=== PATIENT | male | born 1940 | race Caucasian/White ===

== ENCOUNTER 2016-05-15 15:27 | Emergency (ER) | payer MEDICARE, BC ==
--- NOTE | 2016-05-15 15:49 | Emergency Department Record ---
History of Present Illness - General Chief complaint: Nosebleed/epistaxis Stated complaint: NOSE BLEED Time Seen by Provider: 05/15/16 15:48 Source: Patient Mode of Arrival: Ambulatory Limitations: No limitations - History of Present Illness Initial comments: The patient states he is on Coumadin and ASA and had a nosebleed start out of the L nares 30 minutes prior to presenting to the ER. He denies any recent illnesses, CP, SOB or NATALIE. He is on Coumadin for Afib. MD complaint: Epistaxis Onset/Timin -: Minutes(s) Location: Nose Consistency: Constant Improves with: None Worsens with: None Associated Symptoms: Other - Related Data Home Medications Medication Instructions Recorded Confirmed Last Taken Aspirin Chewable 81 mg PO DAILY 04/19/14 05/15/16 11/28/15 06:00 Fenofibrate Nanocrystallized 145 mg PO DAILY 04/19/14 05/15/16 04/19/14 [Tricor] Furosemide [Lasix] 40 mg PO DAILY 04/19/14 05/15/16 11/28/15 06:00 Guaifenesin [Mucinex] 1,200 mg PO BID 04/19/14 05/15/16 04/19/14 Ipratropium/Albuterol [Duoneb] 3 ml IH ASDIR PRN 04/19/14 05/15/16 04/19/14 Oxymetazoline HCl [Afrin] 15 ml NS ASDIR PRN 04/19/14 05/15/16 04/19/14 Simvastatin [Zocor] 40 mg PO QHS 04/19/14 05/15/16 04/19/14 Sotalol HCl [Betapace] 120 mg PO BID 04/19/14 05/15/16 04/19/14 Tamsulosin HCl [Flomax] 0.4 mg PO QHS 04/19/14 05/15/16 04/19/14 Warfarin Sodium [Coumadin] 5 mg PO QHS 04/19/14 05/15/16 04/19/14 Famotidine [Pepcid] 20 mg PO BID tab 11/19/15 05/15/16 Unknown Finasteride 5 mg PO QHS tab 11/19/15 05/15/16 Unknown Lisinopril 5 mg PO QHS tab 11/19/15 05/15/16 Unknown Metformin HCl 500 mg PO DAILY tab 11/19/15 05/15/16 Unknown Previous Rx's Medication Instructions Recorded Nitroglycerin [Nitrostat] 0.4 mg SL ASDIR #30 tab.subl 11/29/15 Allergies Allergy/AdvReac Type Severity Reaction Status Date / Time Iodinated Contrast Media - Allergy Severe SHORTNESS Unverified 11/19/15 12:55 Oral and OF BREATH [Iodinated Contrast Media - IV Dye] Penicillins Allergy Severe HIVES Unverified 11/19/15 12:55 cephalexin monohydrate Allergy Intermediate ITCHING Unverified 11/19/15 12:55 [From Keflex] sulfamethoxazole Allergy Unknown PT UNSURE Unverified 11/19/15 12:55 [From Bactrim] OF REACTION trimethoprim [From Bactrim] Allergy Unknown PT UNSURE Unverified 11/19/15 12:55 OF REACTION Travel Screening - Travel/Exposure Within Last 30 Days Have you traveled within the last 30 days?: No Review of Systems Constitutional: Denies: Chills, Fever Eyes: Denies: Eye discharge ENT: Reports: Epistaxis. Denies: Congestion Respiratory: Denies: Cough, Dyspnea Past Medical History - SOCIAL HISTORY Smoking Status: Former smoker Alcohol Use: None Drug Use: None - RESPIRATORY Hx Respiratory Disorders: Yes Hx COPD: Yes Comment:: emphysema - CARDIOVASCULAR Hx Cardio Disorders: Yes Hx Cardiac Cath: Yes Hx Chest Pain: Yes Hx Hypertension: Yes Hx Irregular Heartbeat: Yes (Afib) Hx Pacemaker/Defib: Yes (just pacer) - NEURO Hx Neuro Disorders: No - GI Hx GI Disorders: No - Hx Genitourinary Disorders: Yes Hx Prostate Problems: Yes - ENDOCRINE Hx Endocrine Disorders: No - MUSCULOSKELETAL Hx Musculoskeletal Disorders: Yes - PSYCH Hx Psych Problems: No - HEMATOLOGY/ONCOLOGY Hx Hematology/Oncology Disorders: No Family Medical History Any Significant Family History?: Yes Hx Diabetes: Mother Hx Heart Disease: Mother, Brother/Sister Physical Exam - General General Appearance: Alert, Oriented x3, Cooperative, No acute distress - Head Head exam: Atraumatic, Normocephalic, Normal inspection - Eye Eye exam: Normal appearance, PERRL - ENT ENT exam: negative: Normal exam Nasal Exam: Active bleeding (There is mild bleeding from the septum on the L where there is a hole in the cartilage.). negative: Normal inspection - Neck Neck exam: Normal inspection, Full ROM. negative: Tenderness - Respiratory Respiratory exam: Normal lung sounds bilaterally. negative: Respiratory distress - Cardiovascular Cardiovascular Exam: Irregular rhythm. negative: Diastolic murmur, Systolic murmur Course Vital Signs 05/15/16 15:41 Temperature 97.9 F Pulse Rate [ 125 H Pulse Ox Probe] Respiratory 20 Rate Blood Pressure 116/62 [Left Arm] Pulse Ox 96 - Reevaluation(s) Reevaluation #1: The patient is doing very well at this time. His bleeding has stopped with the Silver Nitrate cautery. 05/15/16 16:33 Reevaluation #2: The patient is doing well at this time and has had no further bleeding. He does feel like he is back in Afib which has been chronic for him. I did do an EKG and it does appear very similar to one done in Dec of last year. He also has had dyspnea on exertion for at least 6 months and it is no worse at this time. I did discuss the case with Mr. Green's [employer] Dr. Charity Del Rio and he agrees with discharging the patient to home and possibly having him move up his appointment with him later this month. 05/15/16 17:17 05/15/16 17:21 Reevaluation #3: The patient did haav a Nuclear Stress Test on 02/04/16 and it was WNL with no ischemia. 05/15/16 17:22 Medical Decision Making - Data Complexity MDM Data: Labs Ordered and/or Reviewed, EKG Ordered and/or Reviewed, Review and Summary of Old Record Discussed - Lab Data Result diagrams: 05/15/16 16:00 05/15/16 16:00 - EKG Data -: EKG Interpreted by Me EKG: No Acute Changes, Unchanged From Previous Disposition Disposition: Discharge Clinical Impression: Epistaxis Disposition: Home, Self-Care Condition: (1) Good Instructions: Epistaxis (ED) Additional Instructions: Please continue your regular medicines. Please use Salt water spray in your nose for 3 days twice a day. Please have your appointment with Dr. Del Rio moved up later this month. Please return to the ER for any problems or concerns. Forms: Patient Portal Access Time of Disposition: 17:24
[2016-05-15] MEDS ORDERED: TOPICAL LIDOCAINE W/ EPI 5 ML TOP ONE (15:52)
[2016-05-15 16:12] LABS: BASO % 0.8 % (0-6); EOS % 4.4 % (0-6); GRAN % 55.8 % (47-80); HEMATOCRIT 43.5 % (42.0-52.0); HEMOGLOBIN 14.3 gm/dl (14.0-18.0); MEAN CELL VOLUME 93.8 fl (81-97); MEAN CORPUSCULAR HEMOGLOBIN 30.8 pg (27-33); MEAN CORPUSCULAR HGB CONC 32.9 g/dl (32-36); MEAN PLATELET VOLUME 12.7 fl (7.4-10.4); PLATELET COUNT 190 K/uL (130-400); RED BLOOD COUNT 4.64 M/uL (4.40-5.70); RED CELL DISTRIBUTION WIDTH 13.8 % (11.5-14.5); WHITE BLOOD COUNT W/O DIFF 6.6 K/uL (4.2-12.2)
[2016-05-15 16:25] LABS: ANION GAP 13.8 (7-16); BLOOD UREA NITROGEN 22 mg/dL (9-20); CARBON DIOXIDE 29.2 mmol/L (22-30); CREATININE 1.1 mg/dL (0.66-1.25); EST GLOMERULAR FILTRATION RATE > 60 ml/min; GLUCOSE,RANDOM 195 mg/dL (70-110)
[2016-05-15 16:26] LABS: INR 2.01; PARTIAL THROMBOPLASTIN TIME 33.1 SECONDS (24.5-39.1); PROTHROMBIN TIME (PATIENT) 22.7 SECONDS (9.5-12.1)
== END 2016-05-15 17:42 | disposition home or self-care (01) ==
LOC: ER 15:27
DX: R04.0 Epistaxis (principal); I48.91 Unspecified atrial fibrillation; Z79.01 Long term (current) use of anticoagulants; I10 Essential (primary) hypertension; Z87.891 Personal history of nicotine dependence
CPT/HCPCS: 30901; 80048; 85025; 85610; 85730; 93005; 93010; 99284

== ENCOUNTER 2016-09-01 11:56 | Day surgery (SDC) | payer MEDICARE, BC ==
[2016-09-01 12:51] LABS: BASO % 0.3 % (0-6); EOS % 2.9 % (0-6); HEMATOCRIT 42.2 % (42.0-52.0); LYMPH % 18.5 % (16-45); MEAN CELL VOLUME 94.4 fl (81-97); MEAN CORPUSCULAR HGB CONC 30.8 g/dl (32-36); MEAN PLATELET VOLUME 12.7 fl (7.4-10.4); MONO % 11.3 % (0-9); PLATELET COUNT 160 K/uL (130-400); RED BLOOD COUNT 4.47 M/uL (4.40-5.70); RED CELL DISTRIBUTION WIDTH 14.9 % (11.5-14.5); WHITE BLOOD COUNT W/O DIFF 5.8 K/uL (4.2-12.2)
[2016-09-01 13:03] LABS: ALB/GLOB RATIO 1.6 (1.1-1.8); ALBUMIN 4.2 gm/dL (3.5-5.0); ALKALINE PHOSPHATASE 64 U/L (38-126); ALT/SGPT 26 U/L (21-72); ANION GAP 4.2 (7-16); AST/SGOT 31 U/L (17-59); BILIRUBIN,TOTAL 0.81 mg/dL (0.2-1.3); BLOOD UREA NITROGEN 21 mg/dL (9-20); CARBON DIOXIDE 28.8 mmol/L (22-30); EST GLOMERULAR FILTRATION RATE > 60 ml/min; GLUCOSE,RANDOM 137 mg/dL (70-110); TOTAL PROTEIN 6.9 gm/dL (6.3-8.2)
[2016-09-01 13:40] LABS: INR 2.28; PROTHROMBIN TIME (PATIENT) 25.8 SECONDS (9.5-12.1)
[2016-09-01] MEDS ORDERED: PROPOFOL 10 MG/ML VIAL IV ONE (14:53)
[2016-09-01] MEDS ORDERED: LIDOCAINE 2% MDV (20MG/ML) 20ML VIAL IV ONE (14:53)
--- NOTE | 2016-09-03 16:43 | Operative Note ---
DATE OF SURGERY: 09/01/2016 Operating Physician: Marcellus Del Rio MD Indication: Persistent atrial fibrillation. PROCEDURE: The patient was brought into the cardioversion room in a fasting state. The defibrillation pads were applied in the anteroposterior position. Anesthesia was administered and a synchronized direct current of 100 joules biphasic energy was used for cardioversion. This was successful on the first attempt. IMPRESSION: Successful direct current supported cardioversion with 100 joules of biphasic energy. We also interrogated and adjusted the patient's pacemaker. I increased his base rate to 75 beats per minute and will keep it this way for 4-6 weeks to suppress any atrial fibrillation. He also has the AF suppression on in his permanent pacemaker as well. The patient was slightly subtherapeutic on his INR. He was also given 100 mg of Lovenox subcutaneously as well. Marcellus Del Rio MD Date Time MTDD
== END 2016-09-01 14:25 | disposition home or self-care (01) ==
LOC: SUR 11:56
PROVIDERS: ATTEND Internal Medicine
DX: I48.1 Persistent atrial fibrillation (principal); E11.9 Type 2 diabetes mellitus without complications; Z79.84 Long term (current) use of oral hypoglycemic drugs; I10 Essential (primary) hypertension; Z95.0 Presence of cardiac pacemaker
CPT/HCPCS: 80053; 85025; 85610; 85730; 93005

== ENCOUNTER 2016-09-12 19:54 | Emergency (ER) | payer MEDICARE, BC ==
--- NOTE | 2016-09-12 20:17 | Emergency Department Record ---
History of Present Illness - General Chief Complaint: Arrythmia/Palpitations Stated Complaint: AFIB Time Seen by Provider: 09/12/16 20:02 Source: Patient Mode of Arrival: Wheelchair Limitations: No limitations - History of Present Illness Initial Comments: 76 yo male presents to ED with a CC of increasing NATALIE and dizziness, reports that his atrial fibrillation "is back". Patient reports recent cardioversion with Dr. Del Rio 11 days ago, and recent change from Betapace to another medication for rate control (unsure of what medication). Patient denies fevers , chills, cough, or lower extremity edema symptoms. Patient denies chest pain symptoms, reports that he has been on Coumadin for several years as well. MD Complaint: Atrial fibrillation Onset/Timin -: Hour(s) Arrythmia History: Atrial fibrillation Associated Symptoms: Shortness of breath - Related Data Home Medications Medication Instructions Recorded Confirmed Last Taken Aspirin Chewable 81 mg PO DAILY 04/19/14 09/12/16 09/12/16 Fenofibrate Nanocrystallized 145 mg PO DAILY 04/19/14 09/12/16 09/12/16 [Tricor] Furosemide [Lasix] 40 mg PO DAILY 04/19/14 09/12/16 09/12/16 Guaifenesin [Mucinex] 1,200 mg PO BID 04/19/14 09/12/16 09/12/16 Ipratropium/Albuterol [Duoneb] 3 ml IH ASDIR PRN 04/19/14 09/12/16 04/19/14 Oxymetazoline HCl [Afrin] 15 ml NS ASDIR PRN 04/19/14 09/12/16 04/19/14 Simvastatin [Zocor] 40 mg PO QHS 04/19/14 09/12/16 09/12/16 Tamsulosin HCl [Flomax] 0.4 mg PO QHS 04/19/14 09/12/16 09/12/16 Warfarin Sodium [Coumadin] 5 mg PO QHS 04/19/14 09/12/16 09/12/16 Famotidine [Pepcid] 20 mg PO BID tab 11/19/15 09/12/16 09/12/16 Finasteride 5 mg PO QHS tab 11/19/15 09/12/16 09/12/16 Metformin HCl 500 mg PO DAILY tab 11/19/15 09/12/16 09/12/16 Hydrocodone/Acetaminophen [[place] 1 tab PO Q6H PRN 09/12/16 09/12/16 09/12/16 5mg/325mg] Isosorbide Mononitrate [Imdur] 30 mg PO DAILY 09/12/16 09/12/16 09/12/16 Losartan Potassium [Losartan 25 mg PO DAILY 09/12/16 09/12/16 09/12/16 Potassium] Previous Rx's Medication Instructions Recorded Nitroglycerin [Nitrostat] 0.4 mg SL ASDIR #30 tab.subl 11/29/15 Allergies Allergy/AdvReac Type Severity Reaction Status Date / Time Iodinated Contrast Media - Allergy Severe SHORTNESS Unverified 11/19/15 12:55 Oral and OF BREATH [Iodinated Contrast Media - IV Dye] isosorbide [From Imdur] Allergy Severe SHORTNESS Verified 08/31/16 07:37 OF BREATH Penicillins Allergy Severe HIVES Unverified 11/19/15 12:55 cephalexin monohydrate Allergy Intermediate ITCHING Unverified 11/19/15 12:55 [From Keflex] sulfamethoxazole Allergy Unknown PT UNSURE Unverified 11/19/15 12:55 [From Bactrim] OF REACTION trimethoprim [From Bactrim] Allergy Unknown PT UNSURE Unverified 11/19/15 12:55 OF REACTION Review of Systems Constitutional: Denies: Chills, Fever, Malaise, Night sweats Eyes: Denies: Eye discharge, Eye pain ENT: Denies: Congestion, Ear pain, Epistaxis Respiratory: Reports: Dyspnea. Denies: Cough Cardiovascular: Reports: Palpitations. Denies: Chest pain, Edema Endocrine: Reports: Fatigue. Denies: Heat or cold intolerance Gastrointestinal: Denies: Abdominal pain, Nausea, Vomiting Genitourinary: Denies: Incontinence, Retention Musculoskeletal: Reports: Back pain (chronic per patient). Denies: Arthralgia, Gout, Joint swelling Skin: Denies: Bruising, Change in color Neurological: Denies: Abnormal gait, Confusion, Headache Psychiatric: Denies: Anxiety Hematological/Lymphatic: Reports: Easy bleeding, Easy bruising. Denies: Anemia , Blood Clots Past Medical History - SOCIAL HISTORY Smoking Status: Former smoker - RESPIRATORY Hx Respiratory Disorders: Yes Hx Asthma: No Hx Bronchitis: Yes (Last episode 4 weeks ago, usually 1x/yerar) Hx COPD: Yes (hx of 30 year smoking 1 1/2 ppd) Hx Dyspnea: Yes (increasing over last 2-3 weeks) Comment:: emphysema - CARDIOVASCULAR Hx Cardio Disorders: Yes Hx Abnormal EKG: Yes Hx Cardiac Cath: Yes Hx Chest Pain: Yes (After meals, ? indigestion) Hx Edema: Yes (bilat legs onLasix) Hx Heart Attack: No Hx Hypertension: Yes Hx Irregular Heartbeat: Yes Hx Pacemaker/Defib: Yes (Pacemaker [place]) Hx Coronary Artery Disease: Yes Hx Coronary Artery Bypass Graft: Yes (QCABG 1999) Hx Percutaneous Transluminal Coronary Angioplasty (PTCA): Yes Comment:: Due to SOB and back pain - NEURO Hx Neuro Disorders: No - GI Hx GI Disorders: Yes Hx Reflux: Yes (Chest pain after meals, feels OK when gas is passed. On Pepcid) - Hx Genitourinary Disorders: Yes Hx Prostate Problems: Yes (enlarged, sometimes difficult to start stream) - ENDOCRINE Hx Endocrine Disorders: Yes Hx Diabetes: Yes (DX x 6-9 mos, on Metformin) - MUSCULOSKELETAL Hx Musculoskeletal Disorders: Yes Hx Arthritis: Yes (lower back) - PSYCH Hx Psych Problems: No - HEMATOLOGY/ONCOLOGY Hx Hematology/Oncology Disorders: Yes Hx Bruising: Yes (On coumadin) Family Medical History Hx Dementia: Mother Hx Diabetes: Mother Hx Heart Disease: Mother, Brother/Sister Physical Exam - General General Appearance: Alert, Oriented x3, Cooperative, Mild distress Limitations: No limitations - Head Head exam: Atraumatic, Normocephalic, Normal inspection Head exam detail: negative: Abrasion, Contusion, Weaver's sign, General tenderness, Hematoma, Laceration - Eye Eye exam: Normal appearance. negative: Conjunctival injection, Periorbital swelling, Periorbital tenderness, Scleral icterus - ENT Ear exam: negative: Auricular hematoma, Auricular trauma Nasal Exam: negative: Active bleeding, Discharge, Dried blood, Foreign body Mouth exam: negative: Drooling, Laceration, Muffled voice, Tongue elevation - Neck Neck exam: Normal inspection. negative: Meningismus, Tenderness - Respiratory Respiratory exam: Normal lung sounds bilaterally, Wheezes (mild bialterally). negative: Respiratory distress, Rhonchi, Stridor - Cardiovascular Cardiovascular Exam: Normal heart sounds, Irregular rhythm - GI/Abdominal GI/Abdominal exam: Soft. negative: Organomegaly, Rebound, Rigid, Tenderness - Rectal Rectal exam: Deferred - exam: Deferred - Extremities Extremities exam: Normal inspection. negative: Calf tenderness, Pedal edema, Tenderness - Back Back exam: Denies: CVA tenderness (R), CVA tenderness (L) - Neurological Neurological exam: Alert, Normal gait, Oriented X3 - Psychiatric Psychiatric exam: Normal affect, Normal mood - Skin Skin exam: Normal color. 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 Labs are otherwise grossly unremarkable for an acute process. Dr. Hall pagesiva for consultation. Reevaluation #4: 09/12/16 21:07 Case was discussed with Dr. Hall, will accept transfer for further evaluation of his atrial fibrillation. Medical Decision Making - Lab Data Result diagrams: 09/12/16 20:17 09/12/16 20:17 Disposition Disposition: Transfer Clinical Impression: Atrial fibrillation Qualifiers: Atrial fibrillation type: unspecified Qualified Code(s): I48.91 - Unspecified atrial fibrillation Disposition: Acute Care Hospital Transfer Transfer To: [facility] Reason For Transfer: Atrial Fibrillation Accepting Physician: Rafael Time Discussed w/Accepting Physician: 21:08 Condition: (2) Stable Forms: Patient Portal Access Time of Disposition: 21:08
[2016-09-12 20:31] LABS: BASO % 0.5 % (0-6); EOS % 2.4 % (0-6); GRAN % 68.6 % (47-80); HEMATOCRIT 40.3 % (42.0-52.0); HEMOGLOBIN 12.5 gm/dl (14.0-18.0); MEAN CELL VOLUME 93.9 fl (81-97); MEAN CORPUSCULAR HEMOGLOBIN 29.1 pg (27-33); MEAN PLATELET VOLUME 12.5 fl (7.4-10.4); MONO % 11.5 % (0-9); PLATELET COUNT 196 K/uL (130-400); RED BLOOD COUNT 4.29 M/uL (4.40-5.70); RED CELL DISTRIBUTION WIDTH 14.9 % (11.5-14.5); WHITE BLOOD COUNT W/O DIFF 6.3 K/uL (4.2-12.2)
[2016-09-12 20:43] LABS: ALB/GLOB RATIO 1.4 (1.1-1.8); ALBUMIN 4.4 gm/dL (3.5-5.0); ALKALINE PHOSPHATASE 63 U/L (38-126); ALT/SGPT 31 U/L (21-72); ANION GAP 4.5 (7-16); AST/SGOT 32 U/L (17-59); BILIRUBIN,TOTAL 0.76 mg/dL (0.2-1.3); BLOOD UREA NITROGEN 26 mg/dL (9-20); CARBON DIOXIDE 27.5 mmol/L (22-30); CREATININE 1.2 mg/dL (0.66-1.25); EST GLOMERULAR FILTRATION RATE > 60 ml/min; GLUCOSE,RANDOM 115 mg/dL (70-110); TOTAL PROTEIN 7.5 gm/dL (6.3-8.2)
[2016-09-12 20:45] LABS: INR 4.07
[2016-09-12 20:58] LABS: TROPONIN I < 0.012 ng/mL (0.00-0.034)
--- NOTE | 2016-09-15 14:56 | RADIOLOGY REPORT ---
EXAM: CHEST HISTORY: DIFFICULTY BREATHING. TECHNIQUE: Two views of the chest were obtained. Comparison: 11/28/15. FINDINGS: The heart is not enlarged and there is no mediastinal mass. There are post sternotomy changes. There is a pacemaker present. There is no acute infiltrate or vascular congestion. The lungs remain hyperinflated similar to the previous study. Arthritic changes are again seen in the thoracic spine. IMPRESSION: 1. NO ACUTE CARDIAC OR PULMONARY ABNORMALITY. 2. A PACEMAKER REMAINS IN PLACE. 3. POST STERNOTOMY CHANGES AGAIN IDENTIFIED. 4. THE LUNGS REMAIN HYPERINFLATED. JOB NUMBER: [id number] MTDD
== END 2016-09-12 22:00 | disposition short-term general hospital (02) ==
LOC: ER 19:54
DX: I48.0 Paroxysmal atrial fibrillation (principal); Z79.01 Long term (current) use of anticoagulants; Z95.0 Presence of cardiac pacemaker; J43.9 Emphysema, unspecified; E11.9 Type 2 diabetes mellitus without complications
CPT/HCPCS: 71020; 80053; 83880; 84484; 85025; 85610; 93005; 93010; 93041; 99285

== ENCOUNTER 2017-02-04 14:49 | Emergency (ER) | payer MEDICARE, BC ==
[2017-02-04 15:51] LABS: BASO % 0.3 % (0-6); EOS % 0.4 % (0-6); HEMATOCRIT 38.2 % (42.0-52.0); HEMOGLOBIN 11.8 gm/dl (14.0-18.0); LYMPH % 6.1 % (16-45); MEAN CELL VOLUME 93.6 fl (81-97); MEAN CORPUSCULAR HEMOGLOBIN 28.9 pg (27-33); MEAN CORPUSCULAR HGB CONC 30.9 g/dl (32-36); MEAN PLATELET VOLUME 12.9 fl (7.4-10.4); PLATELET COUNT 159 K/uL (130-400); RED BLOOD COUNT 4.08 M/uL (4.40-5.70); RED CELL DISTRIBUTION WIDTH 15.7 % (11.5-14.5); WHITE BLOOD COUNT W/O DIFF 7.8 K/uL (4.2-12.2)
--- NOTE | 2017-02-04 15:55 | Emergency Department Record ---
History of Present Illness - General Chief Complaint: Dizziness Stated Complaint: WAS DIZZY AND SOB EARLIER TODAY Time Seen by Provider: 02/04/17 15:07 Source: Patient Mode of Arrival: Ambulatory Limitations: No limitations - History of Present Illness Initial Comments: [place] when he became increasingly sob. no cp Onset/Timin -: Hour(s) Timing: Awoke with symptoms Description: Other History of Same: Yes History of Trauma: No Severity: Moderate Improves With: Remaining still Worsens With: Movement Associated Symptoms: Denies other symptoms - Stan Coma Scale Eye Response: (4) Open spontaneously Motor Response: (6) Obeys commands Verbal Response: (5) Oriented [place] Total: 15 - Related Data Home Medications Medication Instructions Recorded Confirmed Last Taken Amiodarone HCl [Pacerone] 200 mg PO DAILY 02/04/17 02/04/17 02/03/17 Allergies Allergy/AdvReac Type Severity Reaction Status Date / Time Iodinated Contrast- Oral and Allergy Severe SHORTNESS Verified 02/04/17 15:16 IV Dye OF BREATH [Iodinated Contrast Media - IV Dye] isosorbide [From Imdur] Allergy Severe SHORTNESS Verified 02/04/17 15:16 OF BREATH Penicillins Allergy Severe HIVES Verified 02/04/17 15:16 cephalexin monohydrate Allergy Intermediate ITCHING Verified 02/04/17 15:16 [From Keflex] sulfamethoxazole Allergy Unknown PT UNSURE Verified 02/04/17 15:16 [From Bactrim] OF REACTION trimethoprim [From Bactrim] Allergy Unknown PT UNSURE Verified 02/04/17 15:16 OF REACTION lisinopril Allergy cough Verified 02/04/17 15:47 Travel Screening - Travel/Exposure Within Last 30 Days Have you traveled within the last 30 days?: No Review of Systems Reviewed: No additional complaints except as noted below Constitutional: Reports: As per HPI. Denies: Chills, Fever, Malaise, Night sweats, Weakness, Weight change Eyes: Reports: As per HPI. Denies: Eye discharge, Eye pain, Photophobia, Vision change ENT: Reports: As per HPI. Denies: Congestion, Dental pain, Ear pain, Epistaxis , Hearing loss, Throat pain Respiratory: Reports: As per HPI. Denies: Cough, Dyspnea, Hemoptysis, Stridor, Wheezes Cardiovascular: Reports: As per HPI. Denies: Arrhythmia, Chest pain, Dyspnea on exertion, Edema, Murmurs, Orthopnea, Palpitations, Paroxysmal nocturnal dyspnea, Rheumatic Fever, Syncope Endocrine: Reports: As per HPI. Denies: Fatigue, Heat or cold intolerance, Polydipsia, Polyuria Gastrointestinal: Reports: As per HPI. Denies: Abdominal pain, Constipation, Diarrhea, Hematemesis, Hematochezia, Melena, Nausea, Vomiting Genitourinary: Reports: As per HPI. Denies: Dysuria, Frequency, Hematuria, Incontinence, Retention, Testicular pain, Testicular mass, Urgency Musculoskeletal: Reports: As per HPI. Denies: Arthralgia, Back pain, Gout, Joint swelling, Myalgia, Neck pain Skin: Reports: As per HPI. Denies: Bruising, Change in color, Change in hair/ nails, Lesions, Pruritus, Rash Neurological: Reports: As per HPI. Denies: Abnormal gait, Confusion, Headache, Numbness, Paresthesias, Seizure, Tingling, Tremors, Vertigo, Weakness Psychiatric: Reports: As per HPI. Denies: Anxiety, Auditory hallucinations, Depression, Homicidal thoughts, Suicidal thoughts, Visual hallucinations Hematological/Lymphatic: Reports: As per HPI. Denies: Anemia, Blood Clots, Easy bleeding, Easy bruising, Swollen glands Past Medical History - SOCIAL HISTORY Smoking Status: Former smoker Alcohol Use: None Drug Use: None - RESPIRATORY Hx Respiratory Disorders: Yes Hx Asthma: No Hx Bronchitis: Yes Hx COPD: Yes Hx Dyspnea: Yes Comment:: emphysema - CARDIOVASCULAR Hx Cardio Disorders: Yes Hx Abnormal EKG: Yes Hx Cardiac Cath: Yes Hx Chest Pain: Yes Hx Edema: Yes Hx Heart Attack: No Hx Hypertension: Yes Hx Irregular Heartbeat: Yes (afib in the past) Hx Pacemaker/Defib: Yes Hx Coronary Artery Disease: Yes Hx Coronary Artery Bypass Graft: Yes (QCABG 1999) Hx Percutaneous Transluminal Coronary Angioplasty (PTCA): Yes - NEURO Hx Neuro Disorders: No - GI Hx GI Disorders: Yes Hx Reflux: Yes - Hx Genitourinary Disorders: Yes Hx Prostate Problems: Yes - ENDOCRINE Hx Endocrine Disorders: Yes Hx Diabetes: Yes - MUSCULOSKELETAL Hx Musculoskeletal Disorders: Yes Hx Arthritis: Yes - PSYCH Hx Psych Problems: No - HEMATOLOGY/ONCOLOGY Hx Hematology/Oncology Disorders: Yes Hx Bruising: Yes (On coumadin) Family Medical History Any Significant Family History?: Yes Hx Dementia: Mother Hx Diabetes: Mother Hx Heart Disease: Mother, Brother/Sister Physical Exam - General General Appearance: Alert, Oriented x3, Cooperative, Mild distress - Head Head exam: Normal inspection - Eye Eye exam: Normal appearance, PERRL, EOMI Pupils: Normal accommodation - ENT ENT exam: Normal exam, Mucous membranes moist, Normal external ear exam, Normal orophraynx Ear exam: Normal external inspection. negative: External canal tenderness Nasal Exam: Normal inspection. negative: Discharge, Sinus tenderness Mouth exam: Normal external inspection, Tongue normal Teeth exam: Normal inspection. negative: Dental caries Throat exam: Normal inspection. negative: Tonsillar erythema, Tonsillar exudate - Neck Neck exam: Normal inspection, Full ROM. negative: Tenderness - Respiratory Respiratory exam: Normal lung sounds bilaterally. negative: Respiratory distress - Cardiovascular Cardiovascular Exam: Regular rate, Normal rhythm, Normal heart sounds - GI/Abdominal GI/Abdominal exam: Soft, Normal bowel sounds. negative: Tenderness - Rectal Rectal exam: Deferred - exam: Deferred - Extremities Extremities exam: Normal inspection, Full ROM, Normal capillary refill. negative: Tenderness - Back Back exam: Reports: Normal inspection, Full ROM. Denies: Muscle spasm, Rash noted, Tenderness - Neurological Neurological exam: Alert, CN II-XII intact, Normal gait, Oriented X3 - Psychiatric Psychiatric exam: Normal affect, Normal mood - Skin Skin exam: Dry, Intact, Normal color, Warm Course Vital Signs 02/04/17 15:10 Temperature 97.6 F Pulse Rate 78 Respiratory 18 Rate Blood Pressure 121/79 Pulse Ox 96 - Reevaluation(s) Reevaluation #1: 02/04/17 18:11 pt did well entire stay Medical Decision Making - Lab Data Result diagrams: 02/04/17 15:30 02/04/17 15:30 Disposition Disposition: Discharge Clinical Impression: SOB (shortness of breath), Bronchitis Disposition: Home, Self-Care Condition: (1) Good Instructions: Dyspnea (ED), Shortness of Breath (ED) Additional Instructions: follow up tomorrow without fail with family doctor. return sooner if worse. skip coumadin tonight Forms: Patient Portal Access Quality - Quality Measures Quality Measures: N/A - Blood Pressure Screening Does Patient Have Any of the Following: No Blood Pressure Classification: Pre-Hypertensive BP Reading Systolic Measurement: 121 Diastolic Measurement: 79 Screening for High Blood Pressure: < Pre-Hypertensive BP, F/U Documented > [ [id number]] Pre-Hypertensive Follow-up Interventions: Follow-up with rescreen every year.
[2017-02-04 15:58] LABS: CREATININE 1.3 mg/dL (0.7-1.2)
[2017-02-04 16:05] LABS: CKMB 7.3 ng/mL (<6.73); CREATINE PHOSPHOKINASE 212 U/L (39-308)
[2017-02-04 16:14] LABS: INR 4.09
[2017-02-04 16:16] LABS: PROTHROMBIN TIME (PATIENT) 44.8 SECONDS (9.5-12.1)
--- NOTE | 2017-02-05 10:01 | RADIOLOGY REPORT ---
EXAM: CHEST, TWO VIEWS HISTORY: REPEATED FALL, SHORTNESS OF BREATH. TECHNIQUE: Two views of the chest were obtained. Comparison: Chest x-ray 01/05/06. FINDINGS: Sternal wires are present. Left sided pacemaker present. The lungs are hyperinflated although otherwise clear. The cardiac silhouette is mildly enlarged. The diaphragm is flattened. Osteopenia. No displaced rib fracture. Superior migration of the right humeral head. IMPRESSION: EMPHYSEMA WELL CARDIOMEGALY. NO ACUTE INTRATHORACIC PROCESS. JOB NUMBER: [id number] [facility]
== END 2017-02-04 19:34 | disposition home or self-care (01) ==
LOC: ER 14:49
DX: J20.9 Acute bronchitis, unspecified (principal); R06.02 Shortness of breath; R42 Dizziness and giddiness; I10 Essential (primary) hypertension; I25.10 Atherosclerotic heart disease of native coronary artery without angina pectoris; I25.2 Old myocardial infarction; Z95.1 Presence of aortocoronary bypass graft; Z79.01 Long term (current) use of anticoagulants; Z87.891 Personal history of nicotine dependence
CPT/HCPCS: 71020; 80048; 82550; 82553; 83880; 84484; 85027; 85379; 85610; 93005; 93010; 99284

== ENCOUNTER 2017-03-05 15:46 | Emergency (ER) | payer MEDICARE, BC ==
--- NOTE | 2017-03-05 16:13 | Emergency Department Record ---
History of Present Illness - General Chief Complaint: Shortness of breath Stated Complaint: RAPID HEART RATE SHORT OF BREATH Time Seen by Provider: 03/05/17 15:59 Source: Patient Mode of Arrival: Wheelchair Limitations: No limitations - History of Present Illness Initial Comments: The patient is here due to not feeling well for over a month. He has been SOB for 37 days due to being in Afib. He had a cardioversion performed 2 days ago but does not feel any better. His main complaint is HENRY. The patient feels no different now then prior to the cardioversion so he thought he may have gone back into Afib. Due to that he decided to come to the ER. He denies any CP, back pain, sweating, or nausea. The patient does have a long hx of COPD also. MD Complaint: Shortness of breath Onset/Timin -: Days(s) Improves With: Nothing Worsens With: Nothing Known History Of: COPD Context: Other Associated Symptoms: Denies other symptoms - Related Data Previous Rx's Medication Instructions Recorded Doxycycline Monohydrate [Mondoxyne 100 mg PO BID #20 capsule 03/05/17 Nl] Allergies Allergy/AdvReac Type Severity Reaction Status Date / Time Iodinated Contrast- Oral and Allergy Severe SHORTNESS Verified 02/04/17 15:16 IV Dye OF BREATH [Iodinated Contrast Media - IV Dye] isosorbide [From Imdur] Allergy Severe SHORTNESS Verified 02/04/17 15:16 OF BREATH Penicillins Allergy Severe HIVES Verified 02/04/17 15:16 cephalexin monohydrate Allergy Intermediate ITCHING Verified 02/04/17 15:16 [From Keflex] sulfamethoxazole Allergy Unknown PT UNSURE Verified 02/04/17 15:16 [From Bactrim] OF REACTION trimethoprim [From Bactrim] Allergy Unknown PT UNSURE Verified 02/04/17 15:16 OF REACTION lisinopril Allergy cough Verified 02/04/17 15:47 Travel Screening - Travel/Exposure Within Last 30 Days Have you traveled within the last 30 days?: No Review of Systems Constitutional: Denies: Chills, Fever Eyes: Denies: Eye discharge ENT: Denies: Congestion Respiratory: Reports: Dyspnea. Denies: Cough Cardiovascular: Reports: Dyspnea on exertion. Denies: Arrhythmia, Chest pain Endocrine: Denies: Fatigue Gastrointestinal: Denies: Nausea Genitourinary: Denies: Dysuria Musculoskeletal: Denies: Arthralgia Past Medical History - SOCIAL HISTORY Smoking Status: Former smoker Alcohol Use: None Drug Use: None - RESPIRATORY Hx Respiratory Disorders: Yes Hx Bronchitis: Yes Hx COPD: Yes Hx Dyspnea: Yes Comment:: emphysema - CARDIOVASCULAR Hx Cardio Disorders: Yes Hx Abnormal EKG: Yes Hx Cardiac Cath: Yes Hx Chest Pain: Yes Hx Edema: Yes Hx Heart Attack: No Hx Hypertension: Yes Hx Irregular Heartbeat: Yes (afib in the past) Hx Pacemaker/Defib: Yes Hx Coronary Artery Disease: Yes Hx Coronary Artery Bypass Graft: Yes (QCABG 1999) Hx Percutaneous Transluminal Coronary Angioplasty (PTCA): Yes - NEURO Hx Neuro Disorders: No - GI Hx GI Disorders: Yes Hx Reflux: Yes - Hx Genitourinary Disorders: Yes Hx Prostate Problems: Yes - ENDOCRINE Hx Endocrine Disorders: Yes Hx Diabetes: Yes - MUSCULOSKELETAL Hx Musculoskeletal Disorders: Yes Hx Arthritis: Yes - PSYCH Hx Psych Problems: No - HEMATOLOGY/ONCOLOGY Hx Hematology/Oncology Disorders: Yes Hx Bruising: Yes (On coumadin) Family Medical History Any Significant Family History?: Yes Hx Dementia: Mother Hx Diabetes: Mother Hx Heart Disease: Mother, Brother/Sister Physical Exam - General General Appearance: Alert, Oriented x3, Cooperative, No acute distress - Head Head exam: Atraumatic, Normocephalic, Normal inspection - Eye Eye exam: Normal appearance, PERRL - Neck Neck exam: Normal inspection, Full ROM. negative: Tenderness - Respiratory Respiratory exam: Decreased breath sounds. negative: Normal lung sounds bilaterally, Accessory muscle use (The patient is speaking in full sentences without any difficulty or being winded.), Prolonged expiratory, Respiratory distress, Rhonchi, Stridor, Wheezes - Cardiovascular Cardiovascular Exam: Regular rate, Normal rhythm, Normal heart sounds - GI/Abdominal GI/Abdominal exam: Soft, Normal bowel sounds. negative: Tenderness Course Vital Signs 03/05/17 15:54 Temperature 97.7 F Pulse Rate 80 Respiratory 16 Rate Blood Pressure 124/68 Pulse Ox 94 L - Reevaluation(s) Reevaluation #1: The patient is doing well at this time and denies any new symptoms. His RA biox is 94% and he is resting comfortably. On xray he does appear to have mild to moderate pulmonary effusions bilaterally L>R. I did discuss the need to see his [employer] for that issue and the patient will comply. 03/05/17 17:00 Reevaluation #2: The patient is doing well at this time. He denies any new issues. He states he still is having HENRY but it has been the same for at least a month and a half. The patient is speaking in full sentences and his RA biox is 96%. The chest CT does demonstrate mod pleural effusions. I did discuss the case with Dr. Martinez and he will set the patient up with Dr. Del Rio for early next week and will facilitate a referral to Pulmonology for possible thoracentesis. Dr. Martinez did review his cardiac echo and states the patient's EF was normal 5 months ago. 03/05/17 18:04 03/05/17 18:09 Reevaluation #3: I also did speak to Dr. Leonardo and he does agree to the plan. 03/05/17 18:53 Medical Decision Making - Data Complexity MDM Data: Labs Ordered and/or Reviewed, X-Ray Ordered and/or Reviewed, EKG Ordered and/or Reviewed - Lab Data Result diagrams: 03/05/17 16:05 03/05/17 16:05 - EKG Data -: EKG Interpreted by Me EKG: No Acute Changes, Unchanged From Previous (Normal sinus rhythm.) - Radiology Data Radiology results: Report reviewed (CXR: COPD, Mild to mod effusions. Chest CT: Mod effusions bilaterally with atelectasis.) Disposition Disposition: Discharge Clinical Impression: Pleural effusion Disposition: Home, Self-Care Condition: (2) Stable Instructions: Dyspnea (ED) Additional Instructions: Please continue your regular medicines and take the Doxycycline as directed. Please see Dr. Del Rio early next week for further evaluation. Return to the ER for any worsening symptoms. Please lower your Coumadin by 1/2 while taking the doxycycline. Prescriptions: Doxycycline Monohydrate [Mondoxyne Nl] 100 mg PO BID #20 capsule Referrals: [facility] [Provider Group] Forms: Patient Portal Access Time of Disposition: 18:09 Quality - Quality Measures Quality Measures: N/A - Blood Pressure Screening View Details: Yes Does Patient Have Any of the Following: No Blood Pressure Classification: Pre-Hypertensive BP Reading Systolic Measurement: 130 Diastolic Measurement: 86 Screening for High Blood Pressure: < Pre-Hypertensive BP, F/U Documented > [ G8950] Pre-Hypertensive Follow-up Interventions: Referral to alternative/primary care provider.
[2017-03-05 16:22] LABS: BASO % 0.4 % (0-6); EOS % 2.3 % (0-6); GRAN % 75.8 % (47-80); HEMATOCRIT 39.2 % (42.0-52.0); HEMOGLOBIN 11.8 gm/dl (14.0-18.0); LYMPH % 13.2 % (16-45); MEAN CELL VOLUME 95.1 fl (81-97); MEAN CORPUSCULAR HEMOGLOBIN 28.6 pg (27-33); MEAN CORPUSCULAR HGB CONC 30.1 g/dl (32-36); MEAN PLATELET VOLUME 12.4 fl (7.4-10.4); MONO % 8.3 % (0-9); PLATELET COUNT 161 K/uL (130-400); RED BLOOD COUNT 4.12 M/uL (4.40-5.70); RED CELL DISTRIBUTION WIDTH 16.3 % (11.5-14.5); WHITE BLOOD COUNT W/O DIFF 5.2 K/uL (4.2-12.2)
[2017-03-05 16:31] LABS: INR 3.48; PARTIAL THROMBOPLASTIN TIME 37.8 SECONDS (24.5-39.1); PROTHROMBIN TIME (PATIENT) 38.1 SECONDS (9.5-12.1)
[2017-03-05 16:32] LABS: BLOOD UREA NITROGEN 25 mg/dL (8-23); CREATININE 1.3 mg/dL (0.7-1.2); EST GLOMERULAR FILTRATION RATE 57 mL/min
[2017-03-05 16:33] LABS: TOTAL PROTEIN 7.2 g/dL (6.6-8.7)
[2017-03-05 16:35] LABS: GLUCOSE,RANDOM 171 mg/dL (74-109)
[2017-03-05 16:37] LABS: ALB/GLOB RATIO 1.4 (1.1-1.8); ALBUMIN 4.2 g/dL (4.0-5.0); ALKALINE PHOSPHATASE 50 U/L (40-129); ALT/SGPT 23 U/L (<41); AST/SGOT 29 U/L (10.0-50.0)
[2017-03-05 16:38] LABS: CREATINE PHOSPHOKINASE 214 U/L (39-308)
[2017-03-05 16:40] LABS: CKMB 9.3 ng/mL (<6.73)
[2017-03-05] MEDS ORDERED: DOXYCYCLINE HYCLATE 100 MG CAPSULE PO ONE (18:03)
--- NOTE | 2017-03-07 18:41 | RADIOLOGY REPORT ---
EXAM: CHEST 2 VIEWS HISTORY: PATIENT HAS SHORTNESS OF BREATH. TECHNIQUE: Two views of the chest upright lateral along with a comparison study dated 02/04/17. FINDINGS: The cardiomediastinal silhouette is within normal limits for size and contour. Post sternotomy changes are identified. COPD changes are identified. A left anterior chest wall pacemaker is unchanged with respect to the prior examination. Moderate bilateral pleural effusions are identified. Mild to moderate bilateral posterior lower lobe passive atelectasis and/or infiltrate may be present. No pneumothorax is noted. IMPRESSION: COPD CHANGES ARE IDENTIFIED WITH MODERATE BILATERAL POSTERIOR LOWER PASSIVE ATELECTASIS AND/OR INFILTRATE AND MODERATE PLEURAL EFFUSIONS. FOLLOW-UP PA AND LATERAL VIEWS OF THE CHEST CAN BE OBTAINED UNTIL RESOLUTION OF FINDINGS. JOB NUMBER: [id number] MTDD
--- NOTE | 2017-03-07 18:52 | CT SCAN REPORT ---
EXAM: CT SCAN CHEST WO CONTRAST HISTORY: SHORTNESS OF BREATH. TECHNIQUE: Serial axial CT scan of the chest was performed at 3.75 mm intervals from the thoracic inlet to the dome of the diaphragm without the use of intravenous contrast. COMPARISON: CT scan of the lumbar spine dated 04/10/15 is provided. FINDINGS: The thoracic inlet is limited in evaluation due to streak artifact from the patient's left anterior chest wall AICD. Lung windows demonstrate significant COPD changes bilaterally. Moderate bilateral pleural effusions are identified. Moderate bilateral passive atelectasis and/or infiltrate is noted. No pneumothorax is noted. The visualized heart size and contour is within normal limits. Noncontrasted thoracic aorta is unremarkable. Multiple subcentimeter lymph nodes are identified within the mediastinum and bilateral nury, which are likely reactive. No significant pathologically enlarged lymph nodes are identified. Calcified right hilar lymph nodes are identified. Chest wall is unremarkable. Axial images through the upper abdomen demonstrate the visualized liver, spleen , bilateral adrenal glands to be unremarkable. Punctate calcifications are identified throughout the pancreas, which appear similar to the prior CT scan. These findings suggest chronic pancreatitis. Clinical correlation is recommended. 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 IMPRESSION: SIGNIFICANT COPD CHANGES ARE IDENTIFIED BILATERALLY WITH MODERATE BILATERAL PASSIVE ATELECTASIS AND/OR INFILTRATE AND MODERATE PLEURAL EFFUSIONS. FOLLOW-UP PA AND LATERAL VIEW OF CHEST CAN BE OBTAINED UNTIL RESOLUTION OF FINDINGS. JOB NUMBER: [id number] [facility]
== END 2017-03-05 18:16 | disposition home or self-care (01) ==
LOC: ER 15:46
DX: J90 Pleural effusion, not elsewhere classified (principal); J44.9 Chronic obstructive pulmonary disease, unspecified; I48.91 Unspecified atrial fibrillation; R06.02 Shortness of breath; I10 Essential (primary) hypertension; E11.9 Type 2 diabetes mellitus without complications; Z79.01 Long term (current) use of anticoagulants; Z87.891 Personal history of nicotine dependence
CPT/HCPCS: 71020; 71250; 80048; 80053; 82550; 82553; 83880; 84484; 85025; 85610; 85730; 93005; 93010; 99284

== ENCOUNTER 2017-03-08 00:09 | Emergency (ER) | payer MEDICARE, BC ==
[2017-03-08 00:21] LABS: BASO % 0.3 % (0-6); GRAN % 65.3 % (47-80); HEMATOCRIT 39.6 % (42.0-52.0); HEMOGLOBIN 12.2 gm/dl (14.0-18.0); MEAN CELL VOLUME 94.7 fl (81-97); MEAN CORPUSCULAR HEMOGLOBIN 29.1 pg (27-33); MEAN CORPUSCULAR HGB CONC 30.8 g/dl (32-36); MEAN PLATELET VOLUME 12.9 fl (7.4-10.4); MONO % 12.4 % (0-9); PLATELET COUNT 158 K/uL (130-400); RED BLOOD COUNT 4.18 M/uL (4.40-5.70); RED CELL DISTRIBUTION WIDTH 16.2 % (11.5-14.5); WHITE BLOOD COUNT W/O DIFF 5.9 K/uL (4.2-12.2)
--- NOTE | 2017-03-08 00:30 | Emergency Department Record ---
History of Present Illness - General Chief complaint: Nosebleed/epistaxis Stated complaint: NATALIE/NOSEBLEED Time Seen by Provider: 03/08/17 00:09 Source: Patient Mode of Arrival: EMS Limitations: No limitations - History of Present Illness Initial comments: 76 yo male presents to ED for evaluation of a nose bleed that began 1 hour prior to arrival. Patient reports that he is on Coumadin for atrial fibrillation and post-bypass surgery. Patient denies any injury or trauma to the nose on examination. Patient reports previous septal hole due to chronic afrin use. Patient reports shortness of breath for several weeks resulting from pleural effusions. MD complaint: Epistaxis Onset/Timin -: Hour(s) Severity: Moderate Consistency: Constant Improves with: Other Context-Epistaxis: Warfarin use - Related Data Previous Rx's Medication Instructions Recorded Doxycycline Monohydrate [Mondoxyne 100 mg PO BID #20 capsule 03/05/17 Nl] Allergies Allergy/AdvReac Type Severity Reaction Status Date / Time Iodinated Contrast- Oral and Allergy Severe SHORTNESS Verified 02/04/17 15:16 IV Dye OF BREATH [Iodinated Contrast Media - IV Dye] isosorbide [From Imdur] Allergy Severe SHORTNESS Verified 02/04/17 15:16 OF BREATH Penicillins Allergy Severe HIVES Verified 02/04/17 15:16 cephalexin monohydrate Allergy Intermediate ITCHING Verified 02/04/17 15:16 [From Keflex] sulfamethoxazole Allergy Unknown PT UNSURE Verified 02/04/17 15:16 [From Bactrim] OF REACTION trimethoprim [From Bactrim] Allergy Unknown PT UNSURE Verified 02/04/17 15:16 OF REACTION lisinopril Allergy cough Verified 02/04/17 15:47 Travel Screening - Travel/Exposure Within Last 30 Days Have you traveled within the last 30 days?: No - Travel/Exposure Within Last Year Have you traveled outside the [place] in the last year?: No - Additonal Travel Details Have you been exposed to anyone with a communicable illness?: No - Travel Symptoms Symptom Screening: None Review of Systems Constitutional: Denies: Chills, Fever, Malaise, Night sweats Eyes: Denies: Eye discharge, Eye pain ENT: Reports: Epistaxis. Denies: Congestion, Ear pain Respiratory: Denies: Cough, Dyspnea Cardiovascular: Reports: Dyspnea on exertion. Denies: Chest pain Endocrine: Denies: Fatigue, Heat or cold intolerance Gastrointestinal: Denies: Abdominal pain, Nausea, Vomiting Genitourinary: Denies: Incontinence, Retention Musculoskeletal: Denies: Arthralgia, Back pain, Gout, Joint swelling Skin: Denies: Bruising, Change in color Neurological: Denies: Abnormal gait, Confusion, Seizure Psychiatric: Denies: Anxiety Hematological/Lymphatic: Reports: Easy bleeding, Easy bruising. Denies: Anemia , Blood Clots Past Medical History - SOCIAL HISTORY Smoking Status: Former smoker Alcohol Use: None Drug Use: None - RESPIRATORY Hx Respiratory Disorders: Yes Hx Bronchitis: Yes Hx COPD: Yes Hx Dyspnea: Yes Comment:: emphysema - CARDIOVASCULAR Hx Cardio Disorders: Yes Hx Abnormal EKG: Yes Hx Cardiac Cath: Yes Hx Chest Pain: Yes Hx Edema: Yes Hx Heart Attack: No Hx Hypertension: Yes Hx Irregular Heartbeat: Yes (afib in the past) Hx Pacemaker/Defib: Yes Hx Coronary Artery Disease: Yes Hx Coronary Artery Bypass Graft: Yes (QCABG 1999) Hx Percutaneous Transluminal Coronary Angioplasty (PTCA): Yes - NEURO Hx Neuro Disorders: No - GI Hx GI Disorders: Yes Hx Reflux: Yes - Hx Genitourinary Disorders: Yes Hx Prostate Problems: Yes - ENDOCRINE Hx Endocrine Disorders: Yes Hx Diabetes: Yes - MUSCULOSKELETAL Hx Musculoskeletal Disorders: Yes Hx Arthritis: Yes - PSYCH Hx Psych Problems: No - HEMATOLOGY/ONCOLOGY Hx Hematology/Oncology Disorders: Yes Hx Bruising: Yes (On coumadin) Family Medical History Any Significant Family History?: No Hx Dementia: Mother Hx Diabetes: Mother Hx Heart Disease: Mother, Brother/Sister Physical Exam - General General Appearance: Alert, Oriented x3, Cooperative, Moderate distress Limitations: No limitations - Head Head exam: Atraumatic, Normocephalic, Normal inspection Head exam detail: negative: Abrasion, Contusion, Weaver's sign, General tenderness, Hematoma, Laceration - Eye Eye exam: Normal appearance. negative: Conjunctival injection, Periorbital swelling, Periorbital tenderness, Scleral icterus - ENT Ear exam: negative: Auricular hematoma, Auricular trauma Nasal Exam: Active bleeding, Dried blood. negative: Discharge, Foreign body Mouth exam: negative: Drooling, Laceration, Muffled voice, Tongue elevation - Neck Neck exam: Normal inspection. negative: Meningismus, Tenderness - Respiratory Respiratory exam: Normal lung sounds bilaterally. negative: Rales, Respiratory distress, Rhonchi, Stridor - Cardiovascular Cardiovascular Exam: Regular rate, Normal rhythm, Normal heart sounds - GI/Abdominal GI/Abdominal exam: Soft. negative: Rebound, Rigid, Tenderness - Rectal Rectal exam: Deferred - exam: Deferred - Extremities Extremities exam: Normal inspection. negative: Pedal edema, Tenderness - Back Back exam: Denies: CVA tenderness (R), CVA tenderness (L) - Neurological Neurological exam: Alert, Normal gait, Oriented X3 - Psychiatric Psychiatric exam: Normal affect, Normal mood - Skin Skin exam: Normal color. negative: Abrasion Type of lesion: negative: abrasion Course Vital Signs 03/08/17 00:10 Temperature 97.8 F Pulse Rate 81 Respiratory 20 Rate Blood Pressure 143/89 Pulse Ox 93 L - Reevaluation(s) Reevaluation #1: 03/08/17 00:40 Anterior packing placed without complications. Will observe for re-bleeding pending INR results. Reevaluation #2: 03/08/17 01:00 Labs reviewed, INR 2.95, Hgb 12.2, labs are otherwise grossly unremarkable for an acute process. Patient reassessed, mild discharge is present from the inferior aspect of the nare, bleeding is largely controlled. Packing was inflated 0.5 mL more for a more snug fit. Patient appears stable for discharge at this time with instructions to follow-up with Dr. Cali in 3-5 days as directed. Patient is also taking doxycycline currently which will cover strep for nasal packing. Medical Decision Making - Lab Data Result diagrams: 03/08/17 00:16 03/08/17 00:16 Lab Results 03/08/17 Range/Units 00:16 WBC 5.9 (4.2-12.2) K/uL RBC 4.18 L (4.40-5.70) M/uL Hgb 12.2 L (14.0-18.0) gm/dl Hct 39.6 L (42.0-52.0) % MCV 94.7 (81-97) fl MCH 29.1 (27-33) pg MCHC 30.8 L (32-36) g/dl RDW 16.2 H (11.5-14.5) % Plt Count 158 (130-400) K/uL MPV 12.9 H (7.4-10.4) fl Gran % 65.3 (47-80) % Lymphocytes % 19.0 (16-45) % Monocytes % 12.4 H (0-9) % Eosinophils % 3.0 (0-6) % Basophils % 0.3 (0-6) % Disposition Disposition: Discharge Clinical Impression: Epistaxis, Warfarin-induced coagulopathy Disposition: Home, Self-Care Condition: (2) Stable Instructions: Nosebleed (ED) Additional Instructions: Return to ED if your symptoms worsen or if you have any concerns. Follow-up with Dr. Saucedo in 3-5 days as directed. Continue Doxycycline as directed. Referrals: SARAI CALI [MEDICAL DOCTOR] - Forms: Patient Portal Access Time of Disposition: 00:41 Quality - Quality Measures Quality Measures: N/A - Blood Pressure Screening Does Patient Have Any of the Following: No Blood Pressure Classification: Pre-Hypertensive BP Reading Systolic Measurement: 143 Diastolic Measurement: 89 Screening for High Blood Pressure: < Pre-Hypertensive BP, F/U Documented > [ G8950] Pre-Hypertensive Follow-up Interventions: Referral to alternative/primary care provider.
[2017-03-08 00:32] LABS: INR 2.95; PROTHROMBIN TIME (PATIENT) 32.2 SECONDS (9.5-12.1)
[2017-03-08 00:34] LABS: BLOOD UREA NITROGEN 27 mg/dL (8-23); CREATININE 1.2 mg/dL (0.7-1.2); EST GLOMERULAR FILTRATION RATE > 60 mL/min
[2017-03-08 00:35] LABS: TOTAL PROTEIN 7.2 g/dL (6.6-8.7)
[2017-03-08 00:37] LABS: GLUCOSE,RANDOM 173 mg/dL (74-109)
[2017-03-08 00:39] LABS: ALB/GLOB RATIO 1.3 (1.1-1.8); ALT/SGPT 22 U/L (<41); AST/SGOT 32 U/L (10.0-50.0)
[2017-03-08 00:40] LABS: ALKALINE PHOSPHATASE 50 U/L (40-129)
== END 2017-03-08 01:29 | disposition home or self-care (01) ==
LOC: ER 00:09
DX: R04.0 Epistaxis (principal); D68.32 Hemorrhagic disorder due to extrinsic circulating anticoagulants; T45.515A Adverse effect of anticoagulants, initial encounter; I10 Essential (primary) hypertension; I48.91 Unspecified atrial fibrillation; R06.02 Shortness of breath; Z79.01 Long term (current) use of anticoagulants; Z87.891 Personal history of nicotine dependence
CPT/HCPCS: 30901; 80053; 85025; 85610; 99283; 99284

== ENCOUNTER 2017-11-30 11:25 | Emergency (ER) | payer MEDICARE, BC ==
[2017-11-30] MEDS ORDERED: 0.9 % SODIUM CHLORIDE 1000ML 1,000 ML IV PRN (11:41)
[2017-11-30 11:52] LABS: BASO % 0.6 % (0-6); EOS % 1.1 % (0-6); GRAN % 78.7 % (47-80); HEMOGLOBIN 12.1 gm/dl (14.0-18.0); LYMPH % 9.8 % (16-45); MEAN CELL VOLUME 96.2 fl (81-97); MEAN CORPUSCULAR HGB CONC 30.3 g/dl (32-36); MEAN PLATELET VOLUME 12.6 fl (7.4-10.4); MONO % 9.8 % (0-9); PLATELET COUNT 148 K/uL (130-400); RED BLOOD COUNT 4.16 M/uL (4.40-5.70); RED CELL DISTRIBUTION WIDTH 15.6 % (11.5-14.5); WHITE BLOOD COUNT W/O DIFF 5.4 K/uL (4.2-12.2)
[2017-11-30 12:02] LABS: BLOOD UREA NITROGEN 32 mg/dL (8-23)
[2017-11-30 12:03] LABS: CREATININE 1.3 mg/dL (0.7-1.2); EST GLOMERULAR FILTRATION RATE 57 mL/min
[2017-11-30 12:05] LABS: GLUCOSE,RANDOM 183 mg/dL (74-109)
[2017-11-30 12:07] LABS: INR 2.8; PARTIAL THROMBOPLASTIN TIME 36.4 SECONDS (24.5-39.1); PROTHROMBIN TIME (PATIENT) 27.6 SECONDS (9.5-12.1)
[2017-11-30 12:20] LABS: THYROID STIMULATING HORMONE 6.59 uIU/mL (0.270-4.20)
--- NOTE | 2017-11-30 12:25 | Emergency Department Record ---
History of Present Illness - General Chief Complaint: Dizziness Stated Complaint: NATALIE Time Seen by Provider: 11/30/17 11:41 Source: Patient, Family () Mode of Arrival: Wheelchair Limitations: No limitations - History of Present Illness Initial Comments: Pt with for sensation of dizziness from his difficulty breathing. He associates the dizziness with the NATALIE. No CP, no cough, but "some congestion". Pt with hx of pulmonary disease and CHF with pacer for "years". No recent illness with fever, vomiting, cough. Pt states he is unable to do basic work around the house due to his NATALIE. Complaint: Dizziness Onset/Timin -: Hour(s) Timing: Sudden onset Description: Lightheadedness History of Same: Yes History of Trauma: No Severity: Mild Improves With: Nothing Worsens With: Movement Associated Symptoms: Shortness of breath - [place] Coma Scale Eye Response: (4) Open spontaneously Motor Response: (6) Obeys commands Verbal Response: (5) Oriented [place] Total: 15 - Related Data Home Medications Medication Instructions Recorded Confirmed Last Taken Latanoprost 0.005% Opth Kiya 1 drop EACH EYE DAILY 11/30/17 11/30/17 Unknown [Xalatan] Allergies Allergy/AdvReac Type Severity Reaction Status Date / Time Iodinated Contrast- Oral and Allergy Severe SHORTNESS Verified 02/04/17 15:16 IV Dye OF BREATH [Iodinated Contrast Media - IV Dye] isosorbide [From Imdur] Allergy Severe SHORTNESS Verified 02/04/17 15:16 OF BREATH Penicillins Allergy Severe HIVES Verified 02/04/17 15:16 cephalexin monohydrate Allergy Intermediate ITCHING Verified 02/04/17 15:16 [From Keflex] sulfamethoxazole Allergy Unknown PT UNSURE Verified 02/04/17 15:16 [From Bactrim] OF REACTION trimethoprim [From Bactrim] Allergy Unknown PT UNSURE Verified 02/04/17 15:16 OF REACTION lisinopril Allergy cough Verified 02/04/17 15:47 Travel Screening - Travel/Exposure Within Last 30 Days Have you traveled within the last 30 days?: No Review of Systems Constitutional: Reports: Weakness. Denies: Chills, Fever, Malaise Eyes: Denies: Photophobia, Vision change ENT: Reports: Congestion Respiratory: Reports: Dyspnea. Denies: Cough, Hemoptysis, Stridor, Wheezes Cardiovascular: Reports: Dyspnea on exertion, Edema, Paroxysmal nocturnal dyspnea. Denies: Arrhythmia, Chest pain, Palpitations Endocrine: Reports: Fatigue Gastrointestinal: Denies: Abdominal pain, Constipation, Diarrhea, Vomiting Musculoskeletal: Denies: Arthralgia, Back pain Skin: Denies: Bruising Neurological: Reports: Weakness. Denies: Abnormal gait, Confusion, Tingling Psychiatric: Denies: Anxiety, Depression Hematological/Lymphatic: Denies: Anemia Past Medical History - SOCIAL HISTORY Smoking Status: Former smoker - RESPIRATORY Hx Respiratory Disorders: Yes Hx Bronchitis: Yes Hx COPD: Yes Hx Dyspnea: Yes Comment:: emphysema - CARDIOVASCULAR Hx Cardio Disorders: Yes Hx Abnormal EKG: Yes Hx Cardiac Cath: Yes Hx Chest Pain: Yes Hx Edema: Yes Hx Heart Attack: No Hx Hypertension: Yes Hx Irregular Heartbeat: Yes (afib in the past) Hx Pacemaker/Defib: Yes Hx Coronary Artery Disease: Yes Hx Coronary Artery Bypass Graft: Yes (QCABG 1999) Hx Percutaneous Transluminal Coronary Angioplasty (PTCA): Yes - NEURO Hx Neuro Disorders: No - GI Hx GI Disorders: Yes Hx Reflux: Yes - Hx Genitourinary Disorders: Yes Hx Prostate Problems: Yes - ENDOCRINE Hx Endocrine Disorders: Yes Hx Diabetes: Yes - MUSCULOSKELETAL Hx Musculoskeletal Disorders: Yes Hx Arthritis: Yes - PSYCH Hx Psych Problems: No - HEMATOLOGY/ONCOLOGY Hx Hematology/Oncology Disorders: Yes Hx Bruising: Yes (On coumadin) Family Medical History Any Significant Family History?: Yes Hx Dementia: Mother Hx Diabetes: Mother Hx Heart Disease: Mother, Brother/Sister Physical Exam - General General Appearance: Alert, Oriented x3, Cooperative, Mild distress Limitations: No limitations - Head Head exam: Atraumatic - Eye Eye exam: PERRL, EOMI - ENT ENT exam: Normal exam, Mucous membranes moist, Normal external ear exam, Normal orophraynx, TM's normal bilaterally - Neck Neck exam: Normal inspection. negative: Lymphadenopathy, Tenderness - Respiratory Respiratory exam: Decreased breath sounds. negative: Rales, Rhonchi - Cardiovascular Cardiovascular Exam: Tachycardia (115 and paced ) Peripheral Pulses: 2+: Radial (R), Radial (L) - GI/Abdominal GI/Abdominal exam: Soft, Normal bowel sounds. negative: Guarding, Tenderness - Extremities Extremities exam: Pedal edema (Bilateal edema to mid figueroa - firm with chronic changes of venous insuf. ) - Back Back exam: Reports: Normal inspection - Neurological Neurological exam: Alert, Oriented X3 - Psychiatric Psychiatric exam: Normal affect, Normal mood - Skin Skin exam: Normal color Course Vital Signs 11/30/17 11:27 Temperature 97.9 F Pulse Rate 14 L Respiratory 20 Rate Blood Pressure 117/78 Pulse Ox 94 L - Reevaluation(s) Reevaluation #1: 11/30/17 12:59 Pt with change in heart rate to 80s. Repeat EKG now Afib with controlled Vent rate. Discussed findings with Dr. Del Rio and he is comfortbale with outpt follow up. No change to home meds. Return to ED if symptoms worse or concerns. Procedures - EKG Initial Date: 11/30/17 Time: 11:26 EKG: Abnormal EKG EKG Detail: Paced at 115 - EKG Repeat Repeat #1 EKG Repeat: Abnormal EKG (A fib at 80s. ) Medical Decision Making - Lab Data Result diagrams: 11/30/17 11:30 11/30/17 11:30 Lab Results 11/30/17 11/30/17 11/30/17 Range/Units 11:30 11:30 11:30 WBC 5.4 (4.2-12.2) K/uL RBC 4.16 L (4.40-5.70) M/uL Hgb 12.1 L (14.0-18.0) gm/dl Hct 40.0 L (42.0-52.0) % MCV 96.2 (81-97) fl MCH 29.0 (27-33) pg MCHC 30.3 L (32-36) g/dl RDW 15.6 H (11.5-14.5) % Plt Count 148 (130-400) K/uL MPV 12.6 H (7.4-10.4) fl Gran % 78.7 (47-80) % Lymphocytes % 9.8 L (16-45) % Monocytes % 9.8 H (0-9) % Eosinophils % 1.1 (0-6) % Basophils % 0.6 (0-6) % PT (9.5-12.1) SECONDS INR APTT (24.5-39.1) SECONDS D-Dimer 0.19 (0-0.59) mg/L FEU Sodium 137 (136-145) mmol/L Potassium 4.2 (3.4-4.5) mmol/L Chloride 97 L (98-107) mmol/L Carbon Dioxide 26.0 (22-29) mmol/L Anion Gap 14.0 (7-16) BUN 32 H (8-23) mg/dL Creatinine 1.3 H (0.7-1.2) mg/dL Estimated GFR 57 mL/min Random Glucose 183 H (74-109) mg/dL Calcium 9.0 (8.8-10.2) mg/dL Troponin T < 0.010 (0-0.010) ng/mL NT-Pro-B Natriuret Pep 947.00 H (<450) pg/mL 11/30/17 Range/Units 11:30 WBC (4.2-12.2) K/uL RBC (4.40-5.70) M/uL Hgb (14.0-18.0) gm/dl Hct (42.0-52.0) % MCV (81-97) fl MCH (27-33) pg MCHC (32-36) g/dl RDW (11.5-14.5) % Plt Count (130-400) K/uL MPV (7.4-10.4) fl Gran % (47-80) % Lymphocytes % (16-45) % Monocytes % (0-9) % Eosinophils % (0-6) % Basophils % (0-6) % PT 27.6 H (9.5-12.1) SECONDS INR 2.8 APTT 36.4 (24.5-39.1) SECONDS D-Dimer (0-0.59) mg/L FEU Sodium (136-145) mmol/L Potassium (3.4-4.5) mmol/L Chloride (98-107) mmol/L Carbon Dioxide (22-29) mmol/L Anion Gap (7-16) BUN (8-23) mg/dL Creatinine (0.7-1.2) mg/dL Estimated GFR mL/min Random Glucose (74-109) mg/dL Calcium (8.8-10.2) mg/dL Troponin T (0-0.010) ng/mL NT-Pro-B Natriuret Pep (<450) pg/mL Disposition Disposition: Discharge Clinical Impression: Acute dyspnea, Paroxysmal A-fib Disposition: Home, Self-Care Condition: (2) Stable Instructions: Dizziness (ED) Additional Instructions: Home and rest. Continue current meds Follow up with Dr. Del Rio in office in 1-2 days. Return to the ER sooner if worse or concerns. Forms: Patient Portal Access Quality - Quality Measures Quality Measures: N/A - Blood Pressure Screening Does Patient Have Any of the Following: No, Active Dx of HTN Blood Pressure Classification: Normal BP Reading Systolic Measurement: 117 Diastolic Measurement: 78 Screening for High Blood Pressure: Patient Exclusion, Hx of HTN [G9744]
[2017-11-30] MEDS ORDERED: FUROSEMIDE IV 40MG/4ML VIAL IVP ONE (12:27)
--- NOTE | 2017-12-01 09:52 | RADIOLOGY REPORT ---
EXAM: PORTABLE CHEST HISTORY: DIFFICULTY IN BREATHING. TECHNIQUE: Portable AP upright view of the chest was performed. FINDINGS: Postop sternotomy wires and left sided pacing device. The heart size is normal. The lungs are hyperinflated. No infiltrate or pleural effusion. The osseous structures are normal. IMPRESSION: HYPERINFLATED LUNGS. NO ACUTE PROCESS. JOB NUMBER: [id number] [facility]TDD
== END 2017-11-30 13:29 | disposition home or self-care (01) ==
LOC: ER 11:25
DX: I48.0 Paroxysmal atrial fibrillation (principal); R06.00 Dyspnea, unspecified; R42 Dizziness and giddiness; E11.9 Type 2 diabetes mellitus without complications; I10 Essential (primary) hypertension; J44.9 Chronic obstructive pulmonary disease, unspecified; Z95.1 Presence of aortocoronary bypass graft; Z79.01 Long term (current) use of anticoagulants; Z87.891 Personal history of nicotine dependence
CPT/HCPCS: 71045; 80048; 83880; 84443; 84484; 85025; 85379; 85610; 85730; 93005; 93010; 96374; 99284; J1940

== ENCOUNTER 2017-12-21 11:25 | Day surgery (SDC) | payer MEDICARE, BC ==
[2017-12-21] MEDS ORDERED: PROPOFOL 10 MG/ML VIAL IV ONE (11:26)
[2017-12-21] MEDS ORDERED: LIDOCAINE 2% MDV (20MG/ML) 20ML VIAL IV ONE (11:26)
[2017-12-21 12:11] LABS: INR 3.1; PROTHROMBIN TIME (PATIENT) 30.3 SECONDS (9.5-12.1)
--- NOTE | 2017-12-25 12:54 | Operative Note ---
PROCEDURE: CARDIOVERSION. DATE OF PROCEDURE: 12/21/2017. OPERATING PHYSICIAN: KALEB RODRIGUEZ M.D. PRIMARY CARE PHYSICIAN: DR. DAVID GOODSON INDICATIONS: PERSISTENT ATRIAL FIBRILLATION. PROCEDURE DESCRIPTION: Mr. Green was brought into the Cardioversion Room in a fasting state. The defibrillation pads were applied in the anteroposterior position. Anesthesia was administered by the [employer]W SUPERVISOR and synchronized direct current of 100 joules of biphasic energy was used for cardioversion. Successful cardioversion was achieved in the first attempt. The patient also has a permanent pacemaker. Pacemaker interrogation was performed, which confirmed the patient to be in sinus rhythm and we made the AF suppression more aggressive for the patient on the pacemaker mode changes. IMPRESSION: SUCCESSFUL CARDIOVERSION WITH 100 JOULES OF BIPHASIC ENERGY. JOB NUMBER: [id number] [facility]TDD
== END 2017-12-21 14:15 | disposition home or self-care (01) ==
LOC: SUR 11:25
PROVIDERS: ATTEND Internal Medicine
DX: I48.1 Persistent atrial fibrillation (principal); I10 Essential (primary) hypertension; E03.9 Hypothyroidism, unspecified; E78.00 Pure hypercholesterolemia, unspecified; J44.9 Chronic obstructive pulmonary disease, unspecified; Z79.01 Long term (current) use of anticoagulants; N40.0 Benign prostatic hyperplasia without lower urinary tract symptoms
CPT/HCPCS: 85610; 93005

== ENCOUNTER 2018-04-06 12:21 | Emergency (ER) | payer MEDICARE, BC ==
[2018-04-06 13:10] LABS: BASO % 0.4 % (0-6); EOS % 1.7 % (0-6); GRAN % 77.8 % (47-80); HEMATOCRIT 41.6 % (42.0-52.0); HEMOGLOBIN 12.9 gm/dl (14.0-18.0); LYMPH % 10.3 % (16-45); MEAN CELL VOLUME 96.1 fl (81-97); MEAN PLATELET VOLUME 11.9 fl (7.4-10.4); MONO % 9.8 % (0-9); PLATELET COUNT 199 K/uL (130-400); RED BLOOD COUNT 4.33 M/uL (4.40-5.70); RED CELL DISTRIBUTION WIDTH 16.4 % (11.5-14.5); WHITE BLOOD COUNT W/O DIFF 7.9 K/uL (4.2-12.2)
[2018-04-06 13:11] LABS: MEAN CORPUSCULAR HEMOGLOBIN 29.7 pg (27-33)
[2018-04-06 13:21] LABS: INR 2.9; PROTHROMBIN TIME (PATIENT) 28.2 SECONDS (9.5-12.1)
[2018-04-06 13:23] LABS: BLOOD UREA NITROGEN 26 mg/dL (8-23); CREATININE 1.2 mg/dL (0.7-1.2); EST GLOMERULAR FILTRATION RATE > 60 mL/min
[2018-04-06 13:26] LABS: GLUCOSE,RANDOM 167 mg/dL (74-109)
--- NOTE | 2018-04-06 13:32 | Emergency Department Record ---
History of Present Illness - General Chief Complaint: Fall Injury Stated Complaint: FALL/FINGER INJURY Time Seen by Provider: 04/06/18 12:48 Source: Patient Mode of Arrival: Ambulatory - History of Present Illness Initial Comments: fell and jammed the right fifth finger of his hand and left forearm pain and his head hit the ground and he is on coumadin and neuro exam is negative and he is talking appropriately and waking appropriately. Also complaining of left rib pain MD Complaint: Fall Onset/Timin -: Minutes(s) Fall From: Standing When Fall Occurred: Just prior to arrival Fall Witnessed: Yes, by bystander Place Fall Occurred: Other Loss of Consciousness: None Prolonged Down Time?: No Symptoms Prior to Fall: None Location: Chest Severity: Moderate Severity scale (1-10): 2 Quality: Aching - [place] Coma Scale Eye Response: (4) Open spontaneously Motor Response: (6) Obeys commands Verbal Response: (5) Oriented Stan Total: 15 - Related Data Allergies Allergy/AdvReac Type Severity Reaction Status Date / Time Iodinated Contrast- Oral and Allergy Severe SHORTNESS Verified 04/06/18 12:33 IV Dye OF BREATH [Iodinated Contrast Media - IV Dye] isosorbide [From Imdur] Allergy Severe SHORTNESS Verified 04/06/18 12:33 OF BREATH Penicillins Allergy Severe HIVES Verified 04/06/18 12:33 cephalexin monohydrate Allergy Intermediate ITCHING Verified 04/06/18 12:33 [From Keflex] sulfamethoxazole Allergy Unknown PT UNSURE Verified 04/06/18 12:33 [From Bactrim] OF REACTION trimethoprim [From Bactrim] Allergy Unknown PT UNSURE Verified 04/06/18 12:33 OF REACTION lisinopril Allergy cough Verified 04/06/18 12:33 Travel Screening - Travel/Exposure Within Last 30 Days Have you traveled within the last 30 days?: No - Travel/Exposure Within Last Year Have you traveled outside the [place] in the last year?: No - Additonal Travel Details Have you been exposed to anyone with a communicable illness?: No - Travel Symptoms Symptom Screening: None Review of Systems Reviewed: No additional complaints except as noted below Constitutional: Reports: As per HPI. Denies: Chills, Fever, Malaise, Night sweats, Weakness, Weight change Eyes: Reports: As per HPI. Denies: Eye discharge, Eye pain, Photophobia, Vision change ENT: Reports: As per HPI. Denies: Congestion, Dental pain, Ear pain, Epistaxis , Hearing loss, Throat pain Respiratory: Reports: As per HPI. Denies: Cough, Dyspnea, Hemoptysis, Stridor, Wheezes Cardiovascular: Reports: As per HPI. Denies: Arrhythmia, Chest pain, Dyspnea on exertion, Edema, Murmurs, Orthopnea, Palpitations, Paroxysmal nocturnal dyspnea, Rheumatic Fever, Syncope Endocrine: Reports: As per HPI. Denies: Fatigue, Heat or cold intolerance, Polydipsia, Polyuria Gastrointestinal: Reports: As per HPI. Denies: Abdominal pain, Constipation, Diarrhea, Hematemesis, Hematochezia, Melena, Nausea, Vomiting Genitourinary: Reports: As per HPI. Denies: Dysuria, Frequency, Hematuria, Incontinence, Retention, Testicular pain, Testicular mass, Urgency Musculoskeletal: Reports: As per HPI, Other (right hand pain). Denies: Arthralgia, Back pain, Gout, Joint swelling, Myalgia, Neck pain Skin: Reports: As per HPI. Denies: Bruising, Change in color, Change in hair/ nails, Lesions, Pruritus, Rash Neurological: Reports: As per HPI. Denies: Abnormal gait, Confusion, Headache, Numbness, Paresthesias, Seizure, Tingling, Tremors, Vertigo, Weakness Psychiatric: Reports: As per HPI. Denies: Anxiety, Auditory hallucinations, Depression, Homicidal thoughts, Suicidal thoughts, Visual hallucinations Hematological/Lymphatic: Reports: As per HPI. Denies: Anemia, Blood Clots, Easy bleeding, Easy bruising, Swollen glands Past Medical History - SOCIAL HISTORY Smoking Status: Former smoker Alcohol Use: None Drug Use: None - RESPIRATORY Hx Respiratory Disorders: Yes Hx Bronchitis: Yes Hx COPD: Yes Hx Dyspnea: Yes Comment:: emphysema - CARDIOVASCULAR Hx Cardio Disorders: Yes Hx Abnormal EKG: Yes Hx Cardiac Cath: Yes Hx Chest Pain: Yes (NTG x 1 1 month ago w relief of "indigestion") Hx CHF: Yes (past 10 yrs) Hx Edema: Yes (rt worse than lt-pitting) Hx Heart Attack: No Hx Hypertension: Yes Hx Irregular Heartbeat: Yes (afib in the past) Hx Pacemaker/Defib: Yes (pacer only) Hx Coronary Artery Disease: Yes Hx Coronary Artery Bypass Graft: Yes (QCABG 1999) Hx Percutaneous Transluminal Coronary Angioplasty (PTCA): Yes - NEURO Hx Neuro Disorders: No - GI Hx GI Disorders: Yes Hx Reflux: Yes Hx Wt Loss/Wt Gain: Yes (water retention -10#) - Hx Genitourinary Disorders: Yes Hx Prostate Problems: Yes - ENDOCRINE Hx Endocrine Disorders: Yes Hx Diabetes: Yes Hx Thyroid Disease: Yes Comment:: pt doesn't check acuuchecks - MUSCULOSKELETAL Hx Musculoskeletal Disorders: Yes Hx Arthritis: Yes - PSYCH Hx Psych Problems: No - HEMATOLOGY/ONCOLOGY Hx Hematology/Oncology Disorders: Yes Hx Bruising: Yes (On coumadin) Family Medical History Any Significant Family History?: Yes Hx Dementia: Mother Hx Diabetes: Mother Hx Heart Disease: Mother, Brother/Sister Physical Exam - General General Appearance: Alert, Oriented x3, Cooperative, No acute distress - Head Head exam: Normal inspection - Eye Eye exam: Normal appearance, PERRL Pupils: Normal accommodation - ENT ENT exam: Normal exam, Mucous membranes moist, Normal external ear exam, Normal orophraynx, TM's normal bilaterally Ear exam: Normal external inspection. negative: External canal tenderness Nasal Exam: Normal inspection. negative: Discharge, Sinus tenderness Mouth exam: Normal external inspection, Tongue normal Teeth exam: Normal inspection. negative: Dental caries Throat exam: Normal inspection. negative: Tonsillar erythema, Tonsillar exudate - Neck Neck exam: Normal inspection, Full ROM. negative: Tenderness - Respiratory Respiratory exam: Normal lung sounds bilaterally. negative: Respiratory distress - Cardiovascular Cardiovascular Exam: Regular rate, Normal rhythm, Normal heart sounds - GI/Abdominal GI/Abdominal exam: Soft, Normal bowel sounds. negative: Tenderness - Rectal Rectal exam: Deferred - exam: Deferred - Extremities Extremities exam: Normal capillary refill, Tenderness (deformity of the right fifth finger with ecchymosis) - Back Back exam: Reports: Normal inspection, Full ROM. Denies: Muscle spasm, Rash noted, Tenderness - Neurological Neurological exam: Alert, Normal gait, Oriented X3, Reflexes normal - Psychiatric Psychiatric exam: Normal affect, Normal mood - Skin Skin exam: Dry, Intact, Normal color, Warm Course Vital Signs 04/06/18 12:28 Temperature 97.3 F L Pulse Rate 80 Respiratory 20 Rate Blood Pressure 108/68 Pulse Ox 95 - Reevaluation(s) Reevaluation #1: neuro recheck good 04/06/18 13:31 Reevaluation #2: neuro exam is negative 04/06/18 14:36 Medical Decision Making - Data Complexity MDM Data: Labs Ordered and/or Reviewed (INR2.9), X-Ray Ordered and/or Reviewed ( fracture fifth finger, CT head negative , ribs negative, forearm negative,) - Lab Data Result diagrams: 04/06/18 13:03 04/06/18 13:03 Lab Results 04/06/18 04/06/18 04/06/18 Range/Units 13:03 13:03 13:03 WBC 7.9 (4.2-12.2) K/uL RBC 4.33 L (4.40-5.70) M/uL Hgb 12.9 L (14.0-18.0) gm/dl Hct 41.6 L (42.0-52.0) % MCV 96.1 (81-97) fl MCH 29.7 (27-33) pg MCHC 31.0 L (32-36) g/dl RDW 16.4 H (11.5-14.5) % Plt Count 199 (130-400) K/uL MPV 11.9 H (7.4-10.4) fl Gran % 77.8 (47-80) % Lymphocytes % 10.3 L (16-45) % Monocytes % 9.8 H (0-9) % Eosinophils % 1.7 (0-6) % Basophils % 0.4 (0-6) % PT 28.2 H (9.5-12.1) SECONDS INR 2.9 Sodium 143 (136-145) mmol/L Potassium 4.4 (3.4-4.5) mmol/L Chloride 102 (98-107) mmol/L Carbon Dioxide 31.0 H (22-29) mmol/L Anion Gap 10.0 (7-16) BUN 26 H (8-23) mg/dL Creatinine 1.2 (0.7-1.2) mg/dL Estimated GFR > 60 mL/min Calcium 9.6 (8.8-10.2) mg/dL Disposition Clinical Impression: Contusion, multiple sites Finger fracture, right Qualifiers: Encounter type: initial encounter Finger: little finger Fracture type: closed Phalanx: proximal Fracture alignment: nondisplaced Qualified Code(s): S62.646A - Nondisplaced fracture of proximal phalanx of right little finger, initial encounter for closed fracture Disposition: Home, Self-Care Condition: (1) Good Instructions: Finger Fracture (ED) Additional Instructions: follow up with Dr. stout in 7-10 days use norco for pain or tylenol Forms: Patient Portal Access Time of Disposition: 14:33 Quality - Quality Measures Quality Measures: N/A - Blood Pressure Screening Does Patient Have Any of the Following: No Blood Pressure Classification: Normal BP Reading Systolic Measurement: 108 Diastolic Measurement: 68 Screening for High Blood Pressure: < Normal BP, F/U Not Required > [G8783]
--- NOTE | 2018-04-06 15:29 | CT SCAN REPORT ---
EXAM: CT SCAN HEAD WO CONTRAST HISTORY: FALL. TECHNIQUE: Sequential axial images were obtained from the foramen magnum to the vertex without contrast administration. FINDINGS: Brain volume is normal. No large territorial infarct, hemorrhage, mass effect, or midline shift. No extraaxial fluid collection. There is a left frontal scalp hematoma. No underlying osseous abnormality. IMPRESSION: 1. NO ACUTE INTRACRANIAL ABNORMALITY IS APPRECIATED. 2. LEFT FRONTAL SCALP HEMATOMA. J[facility]: [id number] [facility]
--- NOTE | 2018-04-06 15:30 | RADIOLOGY REPORT ---
EXAM: FOREARM, LEFT HISTORY: INJURY. TECHNIQUE: Two views of the left forearm were performed. FINDINGS: No evidence of fracture or dislocation. There is peripheral vascular disease. IMPRESSION: PERIPHERAL VASCULAR DISEASE. NO ACUTE PROCESS. [facility]: [id number] [facility]
--- NOTE | 2018-04-06 15:34 | RADIOLOGY REPORT ---
EXAM: HAND, RIGHT 3 VIEWS HISTORY: PAIN. TECHNIQUE: Three views of the right hand were performed. FINDINGS: Chronic fracture deformity of the left proximal phalanx. Superimposed infectious/inflammatory process not excluded. Mild degenerative change of the distal interphalangeal joint space. Peripheral vascular disease. IMPRESSION: 1. CHRONIC FRACTURE DEFORMITY OF THE LEFT PROXIMAL PHALANX WITH POSSIBLE SUPERIMPOSED INFECTIOUS/INFLAMMATORY PROCESS. 2. DEGENERATIVE CHANGE OF THE DISTAL INTERPHALANGEAL JOINT SPACE. 3. PERIPHERAL VASCULAR DISEASE. [facility]: [id number] [facility]
--- NOTE | 2018-04-06 15:37 | RADIOLOGY REPORT ---
EXAM: RIBS, LEFT W/PA CHEST HISTORY: PAIN. TECHNIQUE: Single PA view of the chest. Multiple views of the left rib cage were performed. FINDINGS: Heart size is normal. Lung la are clear. No pneumothorax. No rib fracture deformity. Left-sided pacing device in place. IMPRESSION: NEGATIVE PA CHEST AND LEFT RIBS. JOB NUMBER: [id number] [facility]D
== END 2018-04-06 14:49 | disposition home or self-care (01) ==
LOC: ER 12:21
DX: S62.646A Nondisplaced fracture of proximal phalanx of right little finger, initial encounter for closed fracture (principal); S50.12XA Contusion of left forearm, initial encounter; S00.03XA Contusion of scalp, initial encounter; S20.212A Contusion of left front wall of thorax, initial encounter; W01.10XA Fall on same level from slipping, tripping and stumbling with subsequent striking against unspecified object, initial encounter; Y92.524 Gas station as the place of occurrence of the external cause; J44.9 Chronic obstructive pulmonary disease, unspecified; I10 Essential (primary) hypertension; E11.9 Type 2 diabetes mellitus without complications; Z79.01 Long term (current) use of anticoagulants; Z79.84 Long term (current) use of oral hypoglycemic drugs; Z87.891 Personal history of nicotine dependence
CPT/HCPCS: 70450; 80048; 85025; 85610; 99284

== ENCOUNTER 2018-06-03 10:57 | Emergency (ER) | payer MEDICARE, BC ==
[2018-06-03 12:12] LABS: BASO % 0.5 % (0-6); EOS % 1.4 % (0-6); GRAN % 75.1 % (47-80); HEMATOCRIT 40.6 % (42.0-52.0); HEMOGLOBIN 12.9 gm/dl (14.0-18.0); LYMPH % 13.2 % (16-45); MEAN CELL VOLUME 96.7 fl (81-97); MEAN CORPUSCULAR HEMOGLOBIN 30.7 pg (27-33); MEAN CORPUSCULAR HGB CONC 31.8 g/dl (32-36); MEAN PLATELET VOLUME 12.3 fl (7.4-10.4); MONO % 9.8 % (0-9); PLATELET COUNT 188 K/uL (130-400); RED CELL DISTRIBUTION WIDTH 14.9 % (11.5-14.5); WHITE BLOOD COUNT W/O DIFF 6.6 K/uL (4.2-12.2)
[2018-06-03 12:22] LABS: BLOOD UREA NITROGEN 29 mg/dL (8-23); CREATININE 1.2 mg/dL (0.7-1.2); EST GLOMERULAR FILTRATION RATE > 60 mL/min
[2018-06-03 12:23] LABS: TOTAL PROTEIN 7.2 g/dL (6.6-8.7)
[2018-06-03 12:25] LABS: GLUCOSE,RANDOM 150 mg/dL (74-109)
[2018-06-03 12:26] LABS: INR 2.4; PROTHROMBIN TIME (PATIENT) 23.9 SECONDS (9.5-12.1)
[2018-06-03 12:27] LABS: ALB/GLOB RATIO 1.5 (1.1-1.8); ALBUMIN 4.3 g/dL (4.0-5.0); ALT/SGPT 17 U/L (<41); AST/SGOT 21 U/L (10.0-50.0)
[2018-06-03 12:28] LABS: ALKALINE PHOSPHATASE 67 U/L (55-149)
--- NOTE | 2018-06-03 12:47 | Emergency Department Record ---
History of Present Illness - General Chief Complaint: Shortness of breath Stated Complaint: NATALIE/AFIB Time Seen by Provider: 06/03/18 11:40 Source: Patient Mode of Arrival: Ambulatory Limitations: No limitations - History of Present Illness Initial Comments: pt c/o sob for the last week that feels like when he has afib MD Complaint: Shortness of breath Onset/Timin -: Days(s) Consistency: Constant Improves With: Nothing Worsens With: Exertion Known History Of: Other Associated Symptoms: Denies other symptoms Treatments Prior to Arrival: None - Related Data Allergies Allergy/AdvReac Type Severity Reaction Status Date / Time Iodinated Contrast- Oral and Allergy Severe SHORTNESS Verified 04/06/18 12:33 IV Dye OF BREATH [Iodinated Contrast Media - IV Dye] isosorbide [From Imdur] Allergy Severe SHORTNESS Verified 04/06/18 12:33 OF BREATH Penicillins Allergy Severe HIVES Verified 04/06/18 12:33 cephalexin monohydrate Allergy Intermediate ITCHING Verified 04/06/18 12:33 [From Keflex] sulfamethoxazole Allergy Unknown PT UNSURE Verified 04/06/18 12:33 [From Bactrim] OF REACTION trimethoprim [From Bactrim] Allergy Unknown PT UNSURE Verified 04/06/18 12:33 OF REACTION lisinopril Allergy cough Verified 04/06/18 12:33 Travel Screening - Travel/Exposure Within Last 30 Days Have you traveled within the last 30 days?: No Review of Systems Reviewed: No additional complaints except as noted below Constitutional: Reports: As per HPI. Denies: Chills, Fever, Malaise, Night sweats, Weakness, Weight change Eyes: Reports: As per HPI. Denies: Eye discharge, Eye pain, Photophobia, Vision change ENT: Reports: As per HPI. Denies: Congestion, Dental pain, Ear pain, Epistaxis , Hearing loss, Throat pain Respiratory: Reports: As per HPI, Dyspnea. Denies: Cough, Hemoptysis, Stridor, Wheezes Cardiovascular: Reports: As per HPI. Denies: Arrhythmia, Chest pain, Dyspnea on exertion, Edema, Murmurs, Orthopnea, Palpitations, Paroxysmal nocturnal dyspnea, Rheumatic Fever, Syncope Endocrine: Reports: As per HPI. Denies: Fatigue, Heat or cold intolerance, Polydipsia, Polyuria Gastrointestinal: Reports: As per HPI. Denies: Abdominal pain, Constipation, Diarrhea, Hematemesis, Hematochezia, Melena, Nausea, Vomiting Genitourinary: Reports: As per HPI. Denies: Dysuria, Frequency, Hematuria, Incontinence, Retention, Testicular pain, Testicular mass, Urgency Musculoskeletal: Reports: As per HPI. Denies: Arthralgia, Back pain, Gout, Joint swelling, Myalgia, Neck pain Skin: Reports: As per HPI. Denies: Bruising, Change in color, Change in hair/ nails, Lesions, Pruritus, Rash Neurological: Reports: As per HPI. Denies: Abnormal gait, Confusion, Headache, Numbness, Paresthesias, Seizure, Tingling, Tremors, Vertigo, Weakness Psychiatric: Reports: As per HPI. Denies: Anxiety, Auditory hallucinations, Depression, Homicidal thoughts, Suicidal thoughts, Visual hallucinations Hematological/Lymphatic: Reports: As per HPI. Denies: Anemia, Blood Clots, Easy bleeding, Easy bruising, Swollen glands Past Medical History - SOCIAL HISTORY Smoking Status: Former smoker Alcohol Use: None Drug Use: None - RESPIRATORY Hx Respiratory Disorders: Yes Hx Bronchitis: Yes Hx COPD: Yes Hx Dyspnea: Yes Comment:: emphysema - CARDIOVASCULAR Hx Cardio Disorders: Yes Hx Abnormal EKG: Yes Hx Cardiac Cath: Yes Hx Chest Pain: Yes (NTG x 1 1 month ago w relief of "indigestion") Hx CHF: Yes (past 10 yrs) Hx Edema: Yes (rt worse than lt-pitting) Hx Heart Attack: No Hx Hypertension: Yes Hx Irregular Heartbeat: Yes (afib in the past) Hx Pacemaker/Defib: Yes (pacer only) Hx Coronary Artery Disease: Yes Hx Coronary Artery Bypass Graft: Yes (QCABG 1999) Hx Percutaneous Transluminal Coronary Angioplasty (PTCA): Yes - NEURO Hx Neuro Disorders: No - GI Hx GI Disorders: Yes Hx Reflux: Yes Hx Wt Loss/Wt Gain: Yes (water retention -10#) - Hx Genitourinary Disorders: Yes Hx Prostate Problems: Yes - ENDOCRINE Hx Endocrine Disorders: Yes Hx Diabetes: Yes Hx Thyroid Disease: Yes Comment:: pt doesn't check acuuchecks - MUSCULOSKELETAL Hx Musculoskeletal Disorders: Yes Hx Arthritis: Yes - PSYCH Hx Psych Problems: No - HEMATOLOGY/ONCOLOGY Hx Hematology/Oncology Disorders: Yes Hx Bruising: Yes (On coumadin) Family Medical History Any Significant Family History?: Yes Hx Dementia: Mother Hx Diabetes: Mother Hx Heart Disease: Mother, Brother/Sister Physical Exam - General General Appearance: Alert, Oriented x3, Cooperative, Mild distress - Head Head exam: Normal inspection - Eye Eye exam: Normal appearance, PERRL, EOMI Pupils: Normal accommodation - ENT ENT exam: Normal exam, Mucous membranes moist, Normal external ear exam, Normal orophraynx Ear exam: Normal external inspection. negative: External canal tenderness Nasal Exam: Normal inspection. negative: Discharge, Sinus tenderness Mouth exam: Normal external inspection, Tongue normal Teeth exam: Normal inspection. negative: Dental caries Throat exam: Normal inspection. negative: Tonsillar erythema, Tonsillar exudate - Neck Neck exam: Normal inspection, Full ROM. negative: Tenderness - Respiratory Respiratory exam: Normal lung sounds bilaterally. negative: Respiratory distress - Cardiovascular Cardiovascular Exam: Normal heart sounds, Irregular rhythm - GI/Abdominal GI/Abdominal exam: Soft, Normal bowel sounds. negative: Tenderness - Rectal Rectal exam: Deferred - exam: Deferred - Extremities Extremities exam: Normal inspection, Full ROM, Normal capillary refill. negative: Tenderness - Back Back exam: Reports: Normal inspection, Full ROM. Denies: Muscle spasm, Rash noted, Tenderness - Neurological Neurological exam: Alert, CN II-XII intact, Normal gait, Oriented X3 - Psychiatric Psychiatric exam: Normal affect, Normal mood - Skin Skin exam: Dry, Intact, Normal color, Warm Course Vital Signs 06/03/18 11:11 Temperature 97.6 F Pulse Rate [ 79 Feed Manager ] Respiratory 20 Rate Blood Pressure 110/89 [Left Arm] Pulse Ox 99 - Reevaluation(s) Reevaluation #1: 06/03/18 14:52 d/w dr gauthier. he wants lasix increased for 3 days Medical Decision Making - Lab Data Result diagrams: 06/03/18 12:05 06/03/18 12:05 Lab Results 06/03/18 06/03/18 06/03/18 Range/Units 12:05 12:05 12:05 WBC 6.6 (4.2-12.2) K/uL RBC 4.20 L (4.40-5.70) M/uL Hgb 12.9 L (14.0-18.0) gm/dl Hct 40.6 L (42.0-52.0) % MCV 96.7 (81-97) fl MCH 30.7 (27-33) pg MCHC 31.8 L (32-36) g/dl RDW 14.9 H (11.5-14.5) % Plt Count 188 (130-400) K/uL MPV 12.3 H (7.4-10.4) fl Gran % 75.1 (47-80) % Lymphocytes % 13.2 L (16-45) % Monocytes % 9.8 H (0-9) % Eosinophils % 1.4 (0-6) % Basophils % 0.5 (0-6) % PT 23.9 H (9.5-12.1) SECONDS INR 2.4 D-Dimer < 0.19 (0-0.59) mg/L FEU Sodium 141 (136-145) mmol/L Potassium 4.3 (3.4-4.5) mmol/L Chloride 100 (98-107) mmol/L Carbon Dioxide 27.0 (22-29) mmol/L Anion Gap 14.0 (7-16) BUN 29 H (8-23) mg/dL Creatinine 1.2 (0.7-1.2) mg/dL Estimated GFR > 60 mL/min Random Glucose 150 H (74-109) mg/dL Calcium 9.2 (8.8-10.2) mg/dL Total Bilirubin 0.60 (0.2-1.0) mg/dL AST 21 (10.0-50.0) U/L ALT 17 (<41) U/L Alkaline Phosphatase 67 (55-149) U/L Troponin T < 0.010 (0-0.010) ng/mL NT-Pro-B Natriuret Pep 1149.00 H (<450) pg/mL Total Protein 7.2 (6.6-8.7) g/dL Albumin 4.3 (4.0-5.0) g/dL Globulin 2.9 (1.4-4.8) gm/dL Albumin/Globulin Ratio 1.5 (1.1-1.8) Disposition Disposition: Discharge Clinical Impression: Paroxysmal atrial fibrillation Disposition: Home, Self-Care Condition: (1) Good Instructions: A-fib (Atrial Fibrillation) (ED) Additional Instructions: follow up with dr gauthier. return sooner if worse. increase lasix to 2- 40mg tabs in the am and 1- 40mg tab at noon for a total of 120mg a day for 3 days. Forms: Patient Portal Access Quality - Quality Measures Quality Measures: N/A - Blood Pressure Screening Does Patient Have Any of the Following: No Blood Pressure Classification: Pre-Hypertensive BP Reading Systolic Measurement: 110 Diastolic Measurement: 89 Screening for High Blood Pressure: < Pre-Hypertensive BP, F/U Documented > [ G8950] Pre-Hypertensive Follow-up Interventions: Follow-up with rescreen every year.
[2018-06-03] MEDS ORDERED: FUROSEMIDE 40 MG TABLET PO ONE (14:47)
--- NOTE | 2018-06-07 05:26 | RADIOLOGY REPORT ---
EXAM: CHEST, TWO VIEWS HISTORY: SHORTNESS OF BREATH. TECHNIQUE: Upright PA and lateral views of the chest were obtained. Comparison: Left ribs with PA chest dated 04/06/18. CT chest without contrast dated 09/08/17. FINDINGS: A dual lead transvenous cardiac stimulator is in place with lead tips stable in position. One lead tip is at the level of the right atrium. The other is at the expected level of the pulmonary outflow track. The heart is not enlarged. No pulmonary venous hypertension is seen. A relative nodular density projects at the level of the upper right hemithorax measuring 8 mm likely relating to hypertrophic degenerative change of the right first costochondral junction as this has a slightly difference appearance on prior examination on which there is different positioning. The lungs are hyperinflated consistent with COPD. No lung consolidation, costophrenic angle blunting, or pneumothorax. There is again noted calcification along the cardiac base. An abandoned epicardial pacer lead is in place. There are degenerative changes scattered throughout the visualized spine. IMPRESSION: 1. NO RADIOGRAPHIC EVIDENCE OF ACUTE CARDIOPULMONARY DISEASE. 2. HYPERINFLATION OF THE LUNGS CONSISTENT WITH COPD. 3. POST MEDIAN STERNOTOMY. DUAL LEAD TRANSVENOUS CARDIAC PACER REMAINS IN PLACE UNCHANGED. JOB NUMBER: [id number] [facility]
== END 2018-06-03 15:15 | disposition home or self-care (01) ==
LOC: ER 10:57
DX: I48.0 Paroxysmal atrial fibrillation (principal); E11.9 Type 2 diabetes mellitus without complications; I10 Essential (primary) hypertension; J44.9 Chronic obstructive pulmonary disease, unspecified; Z87.891 Personal history of nicotine dependence; Z79.01 Long term (current) use of anticoagulants
CPT/HCPCS: 71046; 80053; 83880; 84484; 85025; 85379; 85610; 93005; 93010; 99284

== ENCOUNTER 2018-08-01 18:36 | Observation (INO) | payer MEDICARE, BC ==
[2018-08-01] MEDS ORDERED: 0.9 % SODIUM CHLORIDE 1,000 ML BAG IV ONE (18:56)
[2018-08-01] MEDS ORDERED: PROMETHAZINE HCL 6.25 MG in 0.9 % SODIUM CHLORIDE 100ML 100 ML IVPB ONE (19:07)
--- NOTE | 2018-08-01 19:09 | Emergency Department Record ---
History of Present Illness - General Chief complaint: Vomiting Stated complaint: VOMITING ALL DAY Time Seen by Provider: 08/01/18 18:45 Source: Patient Mode of Arrival: Ambulatory Limitations: No limitations - History of Present Illness Initial comments: pt has intractable vomiting all day, at least once an hour. no diarrhea. no ap but his abd is distended and uncomfortable MD complaint: Nausea, Vomiting Onset/Timin -: Days(s) Consistency: Constant Improves with: None Worsens with: None Associated Symptoms: Denies other symptoms - Related Data Previous Rx's Medication Instructions Recorded Promethazine HCl [Phenergan] 6.25 mg PO BID #3 tablet 08/01/18 Allergies Allergy/AdvReac Type Severity Reaction Status Date / Time Iodinated Contrast- Oral and Allergy Severe SHORTNESS Verified 04/06/18 12:33 IV Dye OF BREATH [Iodinated Contrast Media - IV Dye] isosorbide [From Imdur] Allergy Severe SHORTNESS Verified 04/06/18 12:33 OF BREATH Penicillins Allergy Severe HIVES Verified 04/06/18 12:33 cephalexin monohydrate Allergy Intermediate ITCHING Verified 04/06/18 12:33 [From Keflex] sulfamethoxazole Allergy Unknown PT UNSURE Verified 04/06/18 12:33 [From Bactrim] OF REACTION trimethoprim [From Bactrim] Allergy Unknown PT UNSURE Verified 04/06/18 12:33 OF REACTION lisinopril Allergy cough Verified 04/06/18 12:33 Travel Screening - Travel/Exposure Within Last 30 Days Have you traveled within the last 30 days?: No Review of Systems Reviewed: No additional complaints except as noted below Constitutional: Reports: As per HPI. Denies: Chills, Fever, Malaise, Night sweats, Weakness, Weight change Eyes: Reports: As per HPI. Denies: Eye discharge, Eye pain, Photophobia, Vision change ENT: Reports: As per HPI. Denies: Congestion, Dental pain, Ear pain, Epistaxis , Hearing loss, Throat pain Respiratory: Reports: As per HPI. Denies: Cough, Dyspnea, Hemoptysis, Stridor, Wheezes Cardiovascular: Reports: As per HPI. Denies: Arrhythmia, Chest pain, Dyspnea on exertion, Edema, Murmurs, Orthopnea, Palpitations, Paroxysmal nocturnal dyspnea, Rheumatic Fever, Syncope Endocrine: Reports: As per HPI. Denies: Fatigue, Heat or cold intolerance, Polydipsia, Polyuria Gastrointestinal: Reports: As per HPI, Nausea, Vomiting. Denies: Abdominal pain , Constipation, Diarrhea, Hematemesis, Hematochezia, Melena Genitourinary: Reports: As per HPI. Denies: Dysuria, Frequency, Hematuria, Incontinence, Retention, Testicular pain, Testicular mass, Urgency Musculoskeletal: Reports: As per HPI. Denies: Arthralgia, Back pain, Gout, Joint swelling, Myalgia, Neck pain Skin: Reports: As per HPI. Denies: Bruising, Change in color, Change in hair/ nails, Lesions, Pruritus, Rash Neurological: Reports: As per HPI. Denies: Abnormal gait, Confusion, Headache, Numbness, Paresthesias, Seizure, Tingling, Tremors, Vertigo, Weakness Psychiatric: Reports: As per HPI. Denies: Anxiety, Auditory hallucinations, Depression, Homicidal thoughts, Suicidal thoughts, Visual hallucinations Hematological/Lymphatic: Reports: As per HPI. Denies: Anemia, Blood Clots, Easy bleeding, Easy bruising, Swollen glands Past Medical History - SOCIAL HISTORY Smoking Status: Former smoker Alcohol Use: None Drug Use: None - RESPIRATORY Hx Respiratory Disorders: Yes Hx Bronchitis: Yes Hx COPD: Yes Hx Dyspnea: Yes Comment:: emphysema - CARDIOVASCULAR Hx Cardio Disorders: Yes Hx Abnormal EKG: Yes Hx Cardiac Cath: Yes Hx Chest Pain: Yes Hx CHF: Yes Hx Edema: Yes Hx Heart Attack: No Hx Hypertension: Yes Hx Irregular Heartbeat: Yes (afib in the past) Hx Pacemaker/Defib: Yes (pacer only) Hx Coronary Artery Disease: Yes Hx Coronary Artery Bypass Graft: Yes (QCABG 1999) Hx Percutaneous Transluminal Coronary Angioplasty (PTCA): Yes - NEURO Hx Neuro Disorders: No - GI Hx GI Disorders: Yes Hx Reflux: Yes Hx Wt Loss/Wt Gain: Yes (water retention -10#) - Hx Genitourinary Disorders: Yes Hx Prostate Problems: Yes - ENDOCRINE Hx Endocrine Disorders: Yes Hx Diabetes: Yes (pre diabetic) Hx Thyroid Disease: Yes - MUSCULOSKELETAL Hx Musculoskeletal Disorders: Yes Hx Arthritis: Yes - PSYCH Hx Psych Problems: No - HEMATOLOGY/ONCOLOGY Hx Hematology/Oncology Disorders: Yes Hx Bruising: Yes (On coumadin) Family Medical History Any Significant Family History?: Yes Hx Dementia: Mother Hx Diabetes: Mother Hx Heart Disease: Mother, Brother/Sister Physical Exam - General General Appearance: Alert, Oriented x3, Cooperative, Mild distress - Head Head exam: Normal inspection - Eye Eye exam: Normal appearance, PERRL, EOMI Pupils: Normal accommodation - ENT ENT exam: Normal exam, Mucous membranes moist, Normal external ear exam, Normal orophraynx Ear exam: Normal external inspection. negative: External canal tenderness Nasal Exam: Normal inspection. negative: Discharge, Sinus tenderness Mouth exam: Normal external inspection, Tongue normal Teeth exam: Normal inspection. negative: Dental caries Throat exam: Normal inspection. negative: Tonsillar erythema, Tonsillar exudate - Neck Neck exam: Normal inspection, Full ROM. negative: Tenderness - Respiratory Respiratory exam: Normal lung sounds bilaterally. negative: Respiratory distress - Cardiovascular Cardiovascular Exam: Regular rate, Normal rhythm, Normal heart sounds - GI/Abdominal GI/Abdominal exam: Soft, Normal bowel sounds, Distended - Rectal Rectal exam: Deferred - exam: Deferred - Extremities Extremities exam: Normal inspection, Full ROM, Normal capillary refill. negative: Tenderness - Back Back exam: Reports: Normal inspection, Full ROM. Denies: Muscle spasm, Rash noted, Tenderness - Neurological Neurological exam: Alert, Normal gait, Oriented X3, Reflexes normal - Psychiatric Psychiatric exam: Normal affect, Normal mood - Skin Skin exam: Dry, Intact, Normal color, Warm Course Vital Signs 08/01/18 18:38 Temperature 98.6 F Pulse Rate 80 Respiratory 18 Rate Blood Pressure 134/69 Pulse Ox 94 L - Reevaluation(s) Reevaluation #1: 08/01/18 21:[address] shows stranding in panus and chronic pancreatitis Medical Decision Making - Lab Data Result diagrams: 08/01/18 19:00 08/01/18 19:00 Disposition Disposition: Discharge Clinical Impression: Cellulitis Qualifiers: Site of cellulitis: trunk Site of cellulitis of trunk: abdominal wall Qualified Code(s): L03.311 - Cellulitis of abdominal wall Vomiting Qualifiers: Vomiting type: unspecified Vomiting Intractability: intractable Nausea presence : with nausea Qualified Code(s): R11.2 - Nausea with vomiting, unspecified Disposition: Home, Self-Care Condition: (1) Good Instructions: Acute Nausea and Vomiting (ED), Cellulitis (ED) Additional Instructions: follow up tomorrow with family doctor. return sooner if worse. tylenol as needed Prescriptions: Promethazine HCl [Phenergan] 6.25 mg PO BID #3 tablet Forms: Patient Portal Access Quality - Quality Measures Quality Measures: N/A - Blood Pressure Screening Does Patient Have Any of the Following: No Blood Pressure Classification: Pre-Hypertensive BP Reading Systolic Measurement: 134 Diastolic Measurement: 69 Screening for High Blood Pressure: < Pre-Hypertensive BP, F/U Documented > [ G8950] Pre-Hypertensive Follow-up Interventions: Follow-up with rescreen every year.
[2018-08-01 19:10] LABS: HEMATOCRIT 43.6 % (42.0-52.0); HEMOGLOBIN 13.4 gm/dl (14.0-18.0); MEAN CELL VOLUME 94.6 fl (81-97); MEAN CORPUSCULAR HGB CONC 30.7 g/dl (32-36); MEAN PLATELET VOLUME 12.3 fl (7.4-10.4); PLATELET COUNT 148 K/uL (130-400); RED BLOOD COUNT 4.61 M/uL (4.40-5.70); RED CELL DISTRIBUTION WIDTH 15.6 % (11.5-14.5); WHITE BLOOD COUNT W/O DIFF 14.3 K/uL (4.2-12.2)
[2018-08-01 19:17] LABS: PLATELET ESTIMATE NORMAL (NORMAL)
[2018-08-01 19:23] LABS: PARTIAL THROMBOPLASTIN TIME 31.7 SECONDS (24.5-39.1); PROTHROMBIN TIME (PATIENT) 19.7 SECONDS (9.5-12.1)
[2018-08-01 19:25] LABS: BLOOD UREA NITROGEN 26 mg/dL (8-23); CREATININE 1.1 mg/dL (0.7-1.2); EST GLOMERULAR FILTRATION RATE > 60 mL/min; TOTAL PROTEIN 7.3 g/dL (6.6-8.7)
[2018-08-01 19:26] LABS: LIPASE 75 U/L (13-60)
[2018-08-01 19:27] LABS: GLUCOSE,RANDOM 172 mg/dL (74-109)
[2018-08-01 19:30] LABS: ALB/GLOB RATIO 1.3 (1.1-1.8); ALBUMIN 4.1 g/dL (4.0-5.0); ALKALINE PHOSPHATASE 58 U/L (40-129); ALT/SGPT 26 U/L (<41); AST/SGOT 26 U/L (10.0-50.0)
[2018-08-01 21:36] LABS: URINE APPEARANCE CLEAR; URINE BILIRUBIN NEGATIVE (NEGATIVE); URINE BLOOD NEGATIVE (NEGATIVE); URINE COLOR YELLOW; URINE GLUCOSE (UA) NEGATIVE (NEGATIVE); URINE KETONE TRACE (NEGATIVE); URINE LEUKOCYTE ESTERASE NEGATIVE (NEGATIVE); URINE NITRITE NEGATIVE (NEGATIVE); URINE PROTEIN NEGATIVE (NEGATIVE)
[2018-08-01] MEDS ORDERED: DOXYCYCLINE HYCLATE 100 MG CAPSULE PO ONE (21:49)
--- NOTE | 2018-08-01 23:21 | Emergency Department Record ---
History of Present Illness - General Chief complaint: Vomiting Stated complaint: VOMITING ALL DAY Time Seen by Provider: 08/01/18 18:45 Source: Patient Mode of Arrival: Ambulatory Limitations: No limitations - History of Present Illness Initial comments: see prev chart MD complaint: Nausea, Vomiting Onset/Timin -: Days(s) Consistency: Constant Improves with: None Worsens with: None Associated Symptoms: Denies other symptoms - Related Data Previous Rx's Medication Instructions Recorded Doxycycline Hyclate 100 mg PO BID #14 cap 08/01/18 Promethazine HCl [Phenergan] 6.25 mg PO BID #3 tablet 08/01/18 Allergies Allergy/AdvReac Type Severity Reaction Status Date / Time Iodinated Contrast- Oral and Allergy Severe SHORTNESS Verified 04/06/18 12:33 IV Dye OF BREATH [Iodinated Contrast Media - IV Dye] isosorbide [From Imdur] Allergy Severe SHORTNESS Verified 04/06/18 12:33 OF BREATH Penicillins Allergy Severe HIVES Verified 04/06/18 12:33 cephalexin monohydrate Allergy Intermediate ITCHING Verified 04/06/18 12:33 [From Keflex] sulfamethoxazole Allergy Unknown PT UNSURE Verified 04/06/18 12:33 [From Bactrim] OF REACTION trimethoprim [From Bactrim] Allergy Unknown PT UNSURE Verified 04/06/18 12:33 OF REACTION lisinopril Allergy cough Verified 04/06/18 12:33 Travel Screening - Travel/Exposure Within Last 30 Days Have you traveled within the last 30 days?: No Review of Systems Constitutional: Reports: As per HPI. Denies: Chills, Fever, Malaise, Night sweats, Weakness, Weight change Eyes: Reports: As per HPI. Denies: Eye discharge, Eye pain, Photophobia, Vision change ENT: Reports: As per HPI. Denies: Congestion, Dental pain, Ear pain, Epistaxis , Hearing loss, Throat pain Respiratory: Reports: As per HPI. Denies: Cough, Dyspnea, Hemoptysis, Stridor, Wheezes Cardiovascular: Reports: As per HPI. Denies: Arrhythmia, Chest pain, Dyspnea on exertion, Edema, Murmurs, Orthopnea, Palpitations, Paroxysmal nocturnal dyspnea, Rheumatic Fever, Syncope Endocrine: Reports: As per HPI. Denies: Fatigue, Heat or cold intolerance, Polydipsia, Polyuria Gastrointestinal: Reports: As per HPI, Nausea, Vomiting. Denies: Abdominal pain , Constipation, Diarrhea, Hematemesis, Hematochezia, Melena Genitourinary: Reports: As per HPI. Denies: Dysuria, Frequency, Hematuria, Incontinence, Retention, Testicular pain, Testicular mass, Urgency Musculoskeletal: Reports: As per HPI. Denies: Arthralgia, Back pain, Gout, Joint swelling, Myalgia, Neck pain Skin: Reports: As per HPI. Denies: Bruising, Change in color, Change in hair/ nails, Lesions, Pruritus, Rash Neurological: Reports: As per HPI. Denies: Abnormal gait, Confusion, Headache, Numbness, Paresthesias, Seizure, Tingling, Tremors, Vertigo, Weakness Psychiatric: Reports: As per HPI. Denies: Anxiety, Auditory hallucinations, Depression, Homicidal thoughts, Suicidal thoughts, Visual hallucinations Hematological/Lymphatic: Reports: As per HPI. Denies: Anemia, Blood Clots, Easy bleeding, Easy bruising, Swollen glands Past Medical History - SOCIAL HISTORY Smoking Status: Former smoker Alcohol Use: None Drug Use: None - RESPIRATORY Hx Respiratory Disorders: Yes Hx Bronchitis: Yes Hx COPD: Yes Hx Dyspnea: Yes Comment:: emphysema - CARDIOVASCULAR Hx Cardio Disorders: Yes Hx Abnormal EKG: Yes Hx Cardiac Cath: Yes Hx Chest Pain: Yes Hx CHF: Yes Hx Edema: Yes Hx Heart Attack: No Hx Hypertension: Yes Hx Irregular Heartbeat: Yes (afib in the past) Hx Pacemaker/Defib: Yes (pacer only) Hx Coronary Artery Disease: Yes Hx Coronary Artery Bypass Graft: Yes (QCABG 1999) Hx Percutaneous Transluminal Coronary Angioplasty (PTCA): Yes - NEURO Hx Neuro Disorders: No - GI Hx GI Disorders: Yes Hx Reflux: Yes Hx Wt Loss/Wt Gain: Yes (water retention -10#) - Hx Genitourinary Disorders: Yes Hx Prostate Problems: Yes - ENDOCRINE Hx Endocrine Disorders: Yes Hx Diabetes: Yes (pre diabetic) Hx Thyroid Disease: Yes - MUSCULOSKELETAL Hx Musculoskeletal Disorders: Yes Hx Arthritis: Yes - PSYCH Hx Psych Problems: No - HEMATOLOGY/ONCOLOGY Hx Hematology/Oncology Disorders: Yes Hx Bruising: Yes (On coumadin) Family Medical History Any Significant Family History?: Yes Hx Dementia: Mother Hx Diabetes: Mother Hx Heart Disease: Mother, Brother/Sister Physical Exam - General Limitations: No limitations Course Vital Signs 08/01/18 08/01/18 08/01/18 18:38 20:15 21:36 Temperature 98.6 F 99.1 F Pulse Rate 80 Pulse Rate [ 77 Pulse Ox Probe] Pulse Rate [ 83 Right] Respiratory 18 16 16 Rate Blood Pressure 134/69 Blood Pressure [Left Arm] Blood Pressure 147/62 [Right Arm] Pulse Ox 94 L 95 92 L 08/01/18 23:00 Temperature Pulse Rate Pulse Rate [ 60 Pulse Ox Probe] Pulse Rate [ Right] Respiratory 14 Rate Blood Pressure Blood Pressure 126/82 [Left Arm] Blood Pressure [Right Arm] Pulse Ox 95 - Reevaluation(s) Reevaluation #1: 08/01/18 23:18 pt was d/cd home ,when he stood up to go he became dizzy and started to vomit again therefore he is being admitted Medical Decision Making - Lab Data Result diagrams: 08/01/18 19:00 08/01/18 19:00 Lab Results 08/01/18 08/01/18 08/01/18 Range/Units 19:00 19:00 19:00 WBC 14.3 H (4.2-12.2) K/uL RBC 4.61 (4.40-5.70) M/uL Hgb 13.4 L (14.0-18.0) gm/dl Hct 43.6 (42.0-52.0) % MCV 94.6 (81-97) fl MCH 29.0 (27-33) pg MCHC 30.7 L (32-36) g/dl RDW 15.6 H (11.5-14.5) % Plt Count 148 (130-400) K/uL MPV 12.3 H (7.4-10.4) fl Neutrophils % 95.0 H (47-80) % Eosinophils % Not Reportable Basophils % Not Reportable Lymphocytes 3.0 L (16-45) % Monocytes 2.0 (0-9) % Platelet Estimate Normal (NORMAL) RBC Morphology Normal PT 19.7 H (9.5-12.1) SECONDS INR 2.0 APTT 31.7 (24.5-39.1) SECONDS Sodium 142 (136-145) mmol/L Potassium 4.0 (3.4-4.5) mmol/L Chloride 102 (98-107) mmol/L Carbon Dioxide 30.0 H (22-29) mmol/L Anion Gap 10.0 (7-16) BUN 26 H (8-23) mg/dL Creatinine 1.1 (0.7-1.2) mg/dL Estimated GFR > 60 mL/min Random Glucose 172 H (74-109) mg/dL Lactic Acid (0.5-2.2) mmol/L Calcium 9.2 (8.8-10.2) mg/dL Total Bilirubin 1.00 (0.2-1.0) mg/dL AST 26 (10.0-50.0) U/L ALT 26 (<41) U/L Alkaline Phosphatase 58 (40-129) U/L Troponin T (0-0.010) ng/mL NT-Pro-B Natriuret Pep (<450) pg/mL Total Protein 7.3 (6.6-8.7) g/dL Albumin 4.1 (4.0-5.0) g/dL Globulin 3.2 (1.4-4.8) gm/dL Albumin/Globulin Ratio 1.3 (1.1-1.8) Lipase 75 H (13-60) U/L Urine Color Urine Appearance Urine pH (5.0-8.0) Ur Specific [place] (1.002-1.030) Urine Protein (NEGATIVE) Urine Glucose (UA) (NEGATIVE) Urine Ketones (NEGATIVE) Urine Blood (NEGATIVE) Urine Nitrite (NEGATIVE) Urine Bilirubin (NEGATIVE) Urine Urobilinogen (0.20 - 1.00) E.U./dL Ur Leukocyte Esterase (NEGATIVE) 08/01/18 08/01/18 08/01/18 Range/Units 19:00 19:00 19:45 WBC (4.2-12.2) K/uL RBC (4.40-5.70) M/uL Hgb (14.0-18.0) gm/dl Hct (42.0-52.0) % MCV (81-97) fl MCH (27-33) pg MCHC (32-36) g/dl RDW (11.5-14.5) % Plt Count (130-400) K/uL MPV (7.4-10.4) fl Neutrophils % (47-80) % Eosinophils % Basophils % Lymphocytes (16-45) % Monocytes (0-9) % Platelet Estimate (NORMAL) RBC Morphology PT (9.5-12.1) SECONDS INR APTT (24.5-39.1) SECONDS Sodium (136-145) mmol/L Potassium (3.4-4.5) mmol/L Chloride (98-107) mmol/L Carbon Dioxide (22-29) mmol/L Anion Gap (7-16) BUN (8-23) mg/dL Creatinine (0.7-1.2) mg/dL Estimated GFR mL/min Random Glucose (74-109) mg/dL Lactic Acid 1.2 (0.5-2.2) mmol/L Calcium (8.8-10.2) mg/dL Total Bilirubin (0.2-1.0) mg/dL AST (10.0-50.0) U/L ALT (<41) U/L Alkaline Phosphatase (40-129) U/L Troponin T < 0.010 (0-0.010) ng/mL NT-Pro-B Natriuret Pep 380.40 (<450) pg/mL Total Protein (6.6-8.7) g/dL Albumin (4.0-5.0) g/dL Globulin (1.4-4.8) gm/dL Albumin/Globulin Ratio (1.1-1.8) Lipase (13-60) U/L Urine Color Urine Appearance Urine pH (5.0-8.0) Ur Specific [place] (1.002-1.030) Urine Protein (NEGATIVE) Urine Glucose (UA) (NEGATIVE) Urine Ketones (NEGATIVE) Urine Blood (NEGATIVE) Urine Nitrite (NEGATIVE) Urine Bilirubin (NEGATIVE) Urine Urobilinogen (0.20 - 1.00) E.U./dL Ur Leukocyte Esterase (NEGATIVE) 08/01/18 Range/Units 21:30 WBC (4.2-12.2) K/uL RBC (4.40-5.70) M/uL Hgb (14.0-18.0) gm/dl Hct (42.0-52.0) % MCV (81-97) fl MCH (27-33) pg MCHC (32-36) g/dl RDW (11.5-14.5) % Plt Count (130-400) K/uL MPV (7.4-10.4) fl Neutrophils % (47-80) % Eosinophils % Basophils % Lymphocytes (16-45) % Monocytes (0-9) % Platelet Estimate (NORMAL) RBC Morphology PT (9.5-12.1) SECONDS INR APTT (24.5-39.1) SECONDS Sodium (136-145) mmol/L Potassium (3.4-4.5) mmol/L Chloride (98-107) mmol/L Carbon Dioxide (22-29) mmol/L Anion Gap (7-16) BUN (8-23) mg/dL Creatinine (0.7-1.2) mg/dL Estimated GFR mL/min Random Glucose (74-109) mg/dL Lactic Acid (0.5-2.2) mmol/L Calcium (8.8-10.2) mg/dL Total Bilirubin (0.2-1.0) mg/dL AST (10.0-50.0) U/L ALT (<41) U/L Alkaline Phosphatase (40-129) U/L Troponin T (0-0.010) ng/mL NT-Pro-B Natriuret Pep (<450) pg/mL Total Protein (6.6-8.7) g/dL Albumin (4.0-5.0) g/dL Globulin (1.4-4.8) gm/dL Albumin/Globulin Ratio (1.1-1.8) Lipase (13-60) U/L Urine Color Yellow Urine Appearance Clear Urine pH 7.0 (5.0-8.0) Ur Specific [place] 1.010 (1.002-1.030) Urine Protein Negative (NEGATIVE) Urine Glucose (UA) Negative (NEGATIVE) Urine Ketones Trace H (NEGATIVE) Urine Blood Negative (NEGATIVE) Urine Nitrite Negative (NEGATIVE) Urine Bilirubin Negative (NEGATIVE) Urine Urobilinogen 1.0 (0.20 - 1.00) E.U./dL Ur Leukocyte Esterase Negative (NEGATIVE) Disposition Disposition: Admit Clinical Impression: Cellulitis Qualifiers: Site of cellulitis: trunk Site of cellulitis of trunk: abdominal wall Qualified Code(s): L03.311 - Cellulitis of abdominal wall Vomiting Qualifiers: Vomiting type: unspecified Vomiting Intractability: intractable Nausea presence : with nausea Qualified Code(s): R11.2 - Nausea with vomiting, unspecified Disposition: Still a Patient at [facility] Decision to Admit: Admit from ER Decision to Admit Date: 08/01/18 Decision to Admit Time: 23:17 Condition: (1) Good Instructions: Cellulitis (ED), Acute Nausea and Vomiting (ED) Additional Instructions: follow up tomorrow with family doctor. return sooner if worse. tylenol as needed Prescriptions: Doxycycline Hyclate 100 mg PO BID #14 cap Promethazine HCl [Phenergan] 6.25 mg PO BID #3 tablet Forms: Patient Portal Access Quality - Quality Measures Quality Measures: N/A - Blood Pressure Screening Does Patient Have Any of the Following: No Blood Pressure Classification: Pre-Hypertensive BP Reading Systolic Measurement: 134 Diastolic Measurement: 69 Screening for High Blood Pressure: < Pre-Hypertensive BP, F/U Documented > [ [id number]] Pre-Hypertensive Follow-up Interventions: Follow-up with rescreen every year.
[2018-08-02] MEDS ORDERED: ACETAMINOPHEN 500 MG TABLET PO PRN (01:28)
[2018-08-02] MEDS ORDERED: METOCLOPRAMIDE HCL 10 MG/2 ML VIAL IVP PRN (01:28)
[2018-08-02] MEDS ORDERED: IPRATROPIUM/ALBUTEROL (0.5MG/3MG) NEB INH PRN (01:28)
[2018-08-02] MEDS ORDERED: HYDROCODONE/APAP 5/325MG TABLET PO PRN (01:28)
[2018-08-02] MEDS: 0.9 % SODIUM CHLORIDE 1000ML 1,000 ML IV PRN ×2 (01:35→11:51)
--- NOTE | 2018-08-02 05:15 | CT SCAN REPORT ---
EXAM: NONCONTRAST CT OF THE ABDOMEN AND PELVIS HISTORY: VOMITING. TECHNIQUE: Noncontrast CT of the abdomen and pelvis was obtained. Comparison: None. FINDINGS: Scattered scarring in both lung bases. Unremarkable noncontrast CT appearance of the liver and adrenal glands. Calcified granulomas in the spleen. The pancreas is mildly atrophic with diffuse scattered calcifications, suggesting chronic pancreatitis. The gallbladder is not visualized, likely prior cholecystectomy. Left upper pole 2 mm calculus. No hydronephrosis. Exophytic 3.3 cm left renal cyst, likely calcification or layering debris along the posterior wall. Unremarkable appearance of the urinary bladder. Sigmoid colon diverticulosis without evidence of acute diverticulitis. Normal appendix. Fluid within the stomach and nondilated small bowel loops. No free air. No free fluid. Aortoiliac arterial access is calcified without aneurysmal dilatation. There is mild subcutaneous fat stranding in the lower abdominal pannus. Tiny fat containing umbilical hernia. Degenerative findings involving the lumbar spine and hips. IMPRESSION: 1. NO ACUTE FINDINGS IN THE ABDOMEN OR PELVIS. 2. FEATURES SUGGESTIVE OF CHRONIC PANCREATITIS. 3. NONOBSTRUCTING SMALL LEFT INTRARENAL CALCULUS. LEFT RENAL CYST WITH ASSOCIATED WALL CALCIFICATION OR LAYERING DEBRIS. 4. COLONIC DIVERTICULOSIS WITHOUT EVIDENCE OF ACUTE DIVERTICULITIS. 5. MILD SUBCUTANEOUS FAT STRANDING IN THE LOWER ABDOMINAL PANNUS; RECOMMEND CORRELATION FOR INFECTIOUS/INFLAMMATORY PROCESS IN THIS REGION. JOB NUMBER: [id number] [facility]
--- NOTE | 2018-08-02 05:19 | CT SCAN REPORT ---
EXAM: NONCONTRAST CT OF THE BRAIN HISTORY: DIZZINESS, VOMITING. TECHNIQUE: Noncontrast CT of the brain was obtained. Comparison: None. FINDINGS: No midline shift, mass effect, or abnormal intra or extraaxial fluid collection. No cerebral edema, focal mass, or intracranial hemorrhage detected. Age related diffuse cerebral volume loss. The basal cisterns are not effaced. No displaced calvarial fracture detected. The visualized paranasal sinuses and mastoid air cells are clear. IMPRESSION: 1. NO ACUTE INTRACRANIAL FINDINGS. 2. AGE RELATED FINDINGS INCLUDING GENERALIZED CEREBRAL VOLUME LOSS AND LIKELY CHRONIC SMALL VESSEL ISCHEMIC WHITE MATTER CHANGE. [facility]: [id number] [facility]
[2018-08-02] MEDS ORDERED: ASPIRIN 81 MG CHEWABLE TABLET PO SCH (10:00)
[2018-08-02] MEDS ORDERED: DOXYCYCLINE HYCLATE 100 MG CAPSULE PO SCH (10:00)
[2018-08-02] MEDS ORDERED: FUROSEMIDE 40 MG TABLET PO SCH (10:00)
[2018-08-02] MEDS ORDERED: FENOFIBRATE NANOCRYSTALLIZED 160 MG PO SCH (10:00)
[2018-08-02] MEDS ORDERED: AMIODARONE HCL 200 MG TABLET PO SCH (10:00)
[2018-08-02] MEDS ORDERED: LOSARTAN POTASSIUM 25 MG TABLET PO SCH (10:00)
[2018-08-02] MEDS ORDERED: METFORMIN 500 MG TABLET PO SCH (10:00)
[2018-08-02] MEDS ORDERED: FAMOTIDINE 20MG TABLET PO SCH (10:00)
[2018-08-02 11:23] LABS: HEMATOCRIT 39.7 % (42.0-52.0); HEMOGLOBIN 11.8 gm/dl (14.0-18.0); MEAN CELL VOLUME 94.1 fl (81-97); MEAN CORPUSCULAR HGB CONC 29.7 g/dl (32-36); MEAN PLATELET VOLUME 12.6 fl (7.4-10.4); PLATELET COUNT 124 K/uL (130-400); RED BLOOD COUNT 4.22 M/uL (4.40-5.70); RED CELL DISTRIBUTION WIDTH 15.6 % (11.5-14.5); WHITE BLOOD COUNT W/O DIFF 6.5 K/uL (4.2-12.2)
[2018-08-02 11:26] LABS: MEAN CORPUSCULAR HEMOGLOBIN 27.9 pg (27-33)
--- NOTE | 2018-08-02 13:08 | History & Physical ---
History of Present Illness - Date of Service Date of Service for History & Physical: 08/02/18 - History of Present Illness Admitting Diagnosis: intractable vomiting, dizziness, weakness, cellulitis History of Present Illness: Nadeem Green is a 78 y/o male presenting to ED late yesterday evening for 12-18 hour history of profuse vomiting. Reports ate dinner he cooked for himself and his family the night before, woke early the morning of 08/01/18 with sudden onset of vomiting and continued through the day. After spending a few hours in ED receiving Pheneragan and fluids he had significant improvement and was ready for discharge. Upon discharging him he stood to leave, became dizzy and began vomiting again and was subsequently admitted for fluids and observation. Other pertinent medical history includes former smoker, COPD, CHF, HTN, a-fib on chronic anticoagulation with coumadin, CAD, CABG 2000 and PTCA, GERD, , prostate enlargement, pre-diabetes, osteoarthritis, psoriasis. While in the ED WBC 14.3, PT/INR 19/7/2.0, BUN 26, Cr 1.1, lactic acid 1.2, troponin <0.010, proBNP 380.4, lipase 75, urinalysis trace ketones. EKG atrial paced complexes, borderline T wave abnormalities, prolonge QT interval. CT abdomen/pelvis showed chronic pancreatitis, colonic diverticulosis without diverticulitis, sub Q fat stranding under abdominal pannus to correlate with acute infectious vs. inflammatory process. Head CT negative for acute process. Admitted to observation for fluid resuscitation and control of intractable vomiting. 08/02/18- resting in bed comfortably. Reports nausea and vomiting have resolved. Has not needed any antiemetics since arriving to floor. No further dizziness with ambulation. Denies every having blood in vomit or having any episodes of diarrhea. Has tolerated clear liquid diet this am and is requesting a regular diet because he is hungry. Travel Screening - Travel/Exposure Within Last 30 Days Have you traveled within the last 30 days?: No - Travel/Exposure Within Last Year Have you traveled outside the [place] in the last year?: No - Additonal Travel Details Have you been exposed to anyone with a communicable illness?: No Review of Systems Constitutional: Reports: As per HPI. Denies: Chills, Fever, Malaise, Night sweats, Weakness, Weight change Eyes: Reports: As per HPI. Denies: Eye discharge, Eye pain, Photophobia, Vision change ENT: Reports: As per HPI. Denies: Congestion, Dental pain, Ear pain, Epistaxis , Hearing loss, Throat pain Respiratory: Reports: As per HPI. Denies: Cough, Dyspnea, Hemoptysis, Stridor, Wheezes Cardiovascular: Reports: As per HPI. Denies: Arrhythmia, Chest pain, Dyspnea on exertion, Edema, Murmurs, Orthopnea, Palpitations, Paroxysmal nocturnal dyspnea, Rheumatic Fever, Syncope Endocrine: Reports: As per HPI. Denies: Fatigue, Heat or cold intolerance, Polydipsia, Polyuria Gastrointestinal: Reports: As per HPI. Denies: Abdominal pain, Constipation, Diarrhea, Hematemesis, Hematochezia, Melena, Nausea, Vomiting Genitourinary: Reports: As per HPI. Denies: Dysuria, Frequency, Hematuria, Incontinence, Retention, Testicular pain, Testicular mass, Urgency Musculoskeletal: Reports: As per HPI. Denies: Arthralgia, Back pain, Gout, Joint swelling, Myalgia, Neck pain Skin: Reports: As per HPI. Denies: Bruising, Change in color, Change in hair/ nails, Lesions, Pruritus, Rash Neurological: Reports: As per HPI. Denies: Abnormal gait, Confusion, Headache, Numbness, Paresthesias, Seizure, Tingling, Tremors, Vertigo, Weakness Psychiatric: Reports: As per HPI. Denies: Anxiety, Auditory hallucinations, Depression, Homicidal thoughts, Suicidal thoughts, Visual hallucinations Hematological/Lymphatic: Reports: As per HPI. Denies: Anemia, Blood Clots, Easy bleeding, Easy bruising, Swollen glands Past Medical History - SOCIAL HISTORY Smoking Status: Former smoker Alcohol Use: None Drug Use: None - RESPIRATORY Hx Respiratory Disorders: Yes Hx Bronchitis: Yes Hx COPD: Yes Hx Dyspnea: Yes Comment:: emphysema - CARDIOVASCULAR Hx Cardio Disorders: Yes Hx Abnormal EKG: Yes Hx Cardiac Cath: Yes Hx Chest Pain: Yes Hx CHF: Yes Hx Edema: Yes Hx Heart Attack: No Hx Hypertension: Yes Hx Irregular Heartbeat: Yes (afib in the past) Hx Pacemaker/Defib: Yes (pacer only) Hx Coronary Artery Disease: Yes Hx Coronary Artery Bypass Graft: Yes (QCABG 1999) Hx Percutaneous Transluminal Coronary Angioplasty (PTCA): Yes - NEURO Hx Neuro Disorders: No - GI Hx GI Disorders: Yes Hx Reflux: Yes Hx Wt Loss/Wt Gain: Yes (water retention -10#) - Hx Genitourinary Disorders: Yes Hx Prostate Problems: Yes - ENDOCRINE Hx Endocrine Disorders: Yes Hx Diabetes: Yes (pre diabetic) Hx Thyroid Disease: Yes - MUSCULOSKELETAL Hx Musculoskeletal Disorders: Yes Hx Arthritis: Yes - PSYCH Hx Psych Problems: No - HEMATOLOGY/ONCOLOGY Hx Hematology/Oncology Disorders: Yes Hx Bruising: Yes (On coumadin) Family Medical History Any Significant Family History?: Yes Hx Dementia: Mother Hx Diabetes: Mother Hx Heart Disease: Mother, Brother/Sister Hx HTN: Mother Hx Stroke: Father H&P Meds/Allergies - Allergies Allergies: Allergies Allergy/AdvReac Type Severity Reaction Status Date / Time Iodinated Contrast- Oral and Allergy Severe SHORTNESS Verified 04/06/18 12:33 IV Dye OF BREATH [Iodinated Contrast Media - IV Dye] isosorbide [From Imdur] Allergy Severe SHORTNESS Verified 04/06/18 12:33 OF BREATH Penicillins Allergy Severe HIVES Verified 04/06/18 12:33 cephalexin monohydrate Allergy Intermediate ITCHING Verified 04/06/18 12:33 [From Keflex] sulfamethoxazole Allergy Unknown PT UNSURE Verified 04/06/18 12:33 [From Bactrim] OF REACTION trimethoprim [From Bactrim] Allergy Unknown PT UNSURE Verified 04/06/18 12:33 OF REACTION lisinopril Allergy cough Verified 04/06/18 12:33 - Home Medications Home Medications Medication Instructions Recorded Confirmed Last Taken Brimonidine Tartrate 1 drop OPTH BID 08/02/18 08/02/18 Unknown Fenofibrate Nanocrystallized 160 mg PO DAILY 08/02/18 08/02/18 Unknown [Triglide] Ketotifen Fumarate [[place]] 1 drop OPTH BID 08/02/18 08/02/18 Unknown Previous Rx's Medication Instructions Recorded Doxycycline Hyclate 100 mg PO BID #14 cap 08/01/18 - Active Medications Active Medications: Current Medications Acetaminophen (Tylenol 500mg Tab) 1,000 mg PO Q6H PRN PRN Reason: PAIN - MILD(1-4)/FEVER Hydrocodone Bitart/Acetaminophen ([place] 5mg/325mg) 1 each PO Q6H PRN PRN Reason: Pain - General Albuterol/Ipratropium (Duoneb) 3 ml INH BID PRN PRN Reason: WHEEZING Amiodarone HCl ([place]) 200 mg PO DAILY [facility] Last Admin: 08/02/18 10:21 Dose: 200 mg Aspirin (Aspirin Chewable) 81 mg PO DAILY [facility] Last Admin: 08/02/18 10:19 Dose: 81 mg Doxycycline Hyclate (Vibramycin) 100 mg PO BID [facility] Last Admin: 08/02/18 10:19 Dose: 100 mg Famotidine (Pepcid) 20 mg PO DAILY [facility] Last Admin: 08/02/18 10:21 Dose: 20 mg Furosemide (Lasix) 40 mg PO DAILY [facility] Last Admin: 08/02/18 10:21 Dose: 40 mg Sodium Chloride () 1,000 mls @ 100 mls/hr IV .Q10H PRN PRN Reason: LARGE VOLUME IV Last Admin: 08/02/18 11:51 Dose: 100 mls/hr Losartan Potassium (Cozaar) 12.5 mg PO DAILY [facility] Last Admin: 08/02/18 10:19 Dose: 12.5 mg Metformin HCl (Glucophage Ir) 500 mg PO DAILY [facility] Last Admin: 08/02/18 10:21 Dose: 500 mg Metoclopramide HCl (Reglan) 5 mg IVP Q6H PRN PRN Reason: NAUSEA/VOMITING Non-Formulary Medication (Fenofibrate Nanocrystallized [Tricor]) 160 mg PO DAILY [facility] Non-Formulary Medication (Finasteride [Finasteride]) 5 mg PO QHS [facility] Simvastatin (Zocor) 40 mg PO QHS [facility] Tamsulosin HCl (Flomax) 0.4 mg PO QHS [facility] Warfarin Sodium (Coumadin) 5 mg PO QHS [facility] Physical Exam - Vital Signs Vital Signs: Vital Signs - Last 24 Hrs Temp Pulse Pulse Pulse Pulse Resp BP 08/02/18 10:51 14 08/02/18 09:00 65 14 08/02/18 07:53 97.5 F L 64 12 08/02/18 05:55 97.7 F 76 20 08/02/18 00:34 80 16 08/01/18 23:00 60 14 08/01/18 21:36 77 16 08/01/18 20:15 99.1 F 83 16 08/01/18 18:38 98.6 F 80 18 134/69 BP BP Pulse Ox 08/02/18 10:51 08/02/18 09:00 08/02/18 07:53 122/57 93 L 08/02/18 05:55 105/59 95 08/02/18 00:34 111/73 93 L 08/01/18 23:00 126/82 95 08/01/18 21:36 92 L 08/01/18 20:15 147/62 95 08/01/18 18:38 94 L - General General Appearance: Alert, Oriented x3, Cooperative Limitations: No limitations - Head Head exam: Normal inspection - Eye Eye exam: Normal appearance, PERRL, EOMI Pupils: Normal accommodation - ENT ENT exam: Normal exam, Mucous membranes moist, Normal external ear exam, Normal orophraynx Ear exam: Normal external inspection. negative: External canal tenderness Nasal Exam: Normal inspection. negative: Discharge, Sinus tenderness Mouth exam: Normal external inspection, Tongue normal Teeth exam: Normal inspection. negative: Dental caries Throat exam: Normal inspection. negative: Tonsillar erythema, Tonsillar exudate - Neck Neck exam: Normal inspection, Full ROM. negative: Tenderness - Respiratory Respiratory exam: Normal lung sounds bilaterally. negative: Respiratory distress - Cardiovascular Cardiovascular Exam: Regular rate, Normal rhythm, Normal heart sounds Peripheral Pulses: 2+: Dorsalis Pedis (R), Dorsalis Pedis (L) - GI/Abdominal GI/Abdominal exam: Soft, Normal bowel sounds. negative: Distended - Rectal Rectal exam: Deferred - exam: Deferred - Extremities Extremities exam: Normal inspection, Full ROM, Normal capillary refill. negative: Tenderness - Back Back exam: Reports: Normal inspection, Full ROM. Denies: Muscle spasm, Rash noted, Tenderness - Neurological Neurological exam: Alert, Normal gait, Oriented X3, Reflexes normal - Psychiatric Psychiatric exam: Normal affect, Normal mood - Skin Skin exam: Dry, Intact, Normal color, Warm, Other (large periumbilical silvery scaley patch, silvery scaley patches under each breast and axilla. NO exudate, no tenderness, skin is intact) Results - Labs Result Diagrams: 08/02/18 11:13 08/01/18 19:00 Labs Last 24 Hours: Laboratory Results - last 24 hr 08/01/18 08/01/18 08/01/18 19:00 19:00 19:00 WBC 14.3 H RBC 4.61 Hgb 13.4 L Hct 43.6 MCV 94.6 MCH 29.0 MCHC 30.7 L RDW 15.6 H Plt Count 148 MPV 12.3 H Neutrophils % 95.0 H Eosinophils % Not Reportable Basophils % Not Reportable Lymphocytes 3.0 L Monocytes 2.0 Platelet Estimate Normal RBC Morphology Normal PT 19.7 H INR 2.0 APTT 31.7 Sodium 142 Potassium 4.0 Chloride 102 Carbon Dioxide 30.0 H Anion Gap 10.0 BUN 26 H Creatinine 1.1 Estimated GFR > 60 Random Glucose 172 H Lactic Acid Calcium 9.2 Total Bilirubin 1.00 AST 26 ALT 26 Alkaline Phosphatase 58 Troponin T NT-Pro-B Natriuret Pep Total Protein 7.3 Albumin 4.1 Globulin 3.2 Albumin/Globulin Ratio 1.3 Lipase 75 H Urine Color Urine Appearance Urine pH Ur Specific [place] Urine Protein Urine Glucose (UA) Urine Ketones Urine Blood Urine Nitrite Urine Bilirubin Urine Urobilinogen Ur Leukocyte Esterase 08/01/18 08/01/18 08/01/18 19:00 19:00 19:45 WBC RBC Hgb Hct MCV MCH MCHC RDW Plt Count MPV Neutrophils % Eosinophils % Basophils % Lymphocytes Monocytes Platelet Estimate RBC Morphology PT INR APTT Sodium Potassium Chloride Carbon Dioxide Anion Gap BUN Creatinine Estimated GFR Random Glucose Lactic Acid 1.2 Calcium Total Bilirubin AST ALT Alkaline Phosphatase Troponin T < 0.010 NT-Pro-B Natriuret Pep 380.40 Total Protein Albumin Globulin Albumin/Globulin Ratio Lipase Urine Color Urine Appearance Urine pH Ur Specific [place] Urine Protein Urine Glucose (UA) Urine Ketones Urine Blood Urine Nitrite Urine Bilirubin Urine Urobilinogen Ur Leukocyte Esterase 08/01/18 08/02/18 21:30 11:13 WBC 6.5 RBC 4.22 L Hgb 11.8 L Hct 39.7 L MCV 94.1 MCH 27.9 MCHC 29.7 L RDW 15.6 H Plt Count 124 L MPV 12.6 H Neutrophils % 90.0 H Eosinophils % Not Reportable Basophils % Not Reportable Lymphocytes 7.0 L Monocytes 3.0 Platelet Estimate RBC Morphology PT INR APTT Sodium Potassium Chloride Carbon Dioxide Anion Gap BUN Creatinine Estimated GFR Random Glucose Lactic Acid Calcium Total Bilirubin AST ALT Alkaline Phosphatase Troponin T NT-Pro-B Natriuret Pep Total Protein Albumin Globulin Albumin/Globulin Ratio Lipase Urine Color Yellow Urine Appearance Clear Urine pH 7.0 Ur Specific [place] 1.010 Urine Protein Negative Urine Glucose (UA) Negative Urine Ketones Trace H Urine Blood Negative Urine Nitrite Negative Urine Bilirubin Negative Urine Urobilinogen 1.0 Ur Leukocyte Esterase Negative - Imaging and Cardiology CT scan - abdomen Status: Report reviewed (colonic diverticulosis without acute diverticulitis, fat stranding to sub Q abdominal pannus) CT scan - head Status: Report reviewed (negative for acute process) VTE H&P Assessment - Risk for VTE Risk for VTE: Yes Risk Level: Low Risk Assessment Date: 08/02/18 Risk Assessment Time: 13:17 VTE Orders Placed or Will Be Placed: Yes Plan - Detailed Diagnosis and Plan (1) Vomiting Current Visit: Yes Status: Acute Qualifiers: Vomiting type: unspecified Vomiting Intractability: intractable Nausea presence: with nausea Qualified Code(s): R11.2 - Nausea with vomiting, unspecified Base Code: R11.10 - VOMITING, UNSPECIFIED Comment: 08/02/18 - CT abdomen/pelvis negative for acute process, there was concern for infectious /inflammatory process to abdomen pannus sub Q tissue - Nausea and vomiting has since resolved since admission, tolerating clear liquid. Will trial regular diet prior to discharge - Reglan 5mg IVP Q 6hr PRN nausea - NS at 100ml/hr (2) Cellulitis Current Visit: Yes Status: Acute Qualifiers: Site of cellulitis: trunk Site of cellulitis of trunk: abdominal wall Qualified Code(s): L03.311 - Cellulitis of abdominal wall Base Code: L03.90 - CELLULITIS, UNSPECIFIED Comment: 08/02/18 - CT abdomen/pelvis suggesting inflammatory vs. infectious process to pannus soft tissue, will treat with Doxycycline 100mg BID prophylactically. There is a large psoriatic lesions to the periumbilical region which may be contributing to inflammatory changes on CT (3) DVT prophylaxis Current Visit: Yes Status: Acute Base Code: [id number] - Comment: 08/02/18 - Coumadin 5mg QD (4) Full code status Current Visit: Yes Status: Acute Base Code: Z78.9 - OTHER SPECIFIED HEALTH STATUS Comment: 08/02/18
--- NOTE | 2018-08-02 13:28 | Discharge Summary ---
Providers Discharge Summary Date: 08/02/18 Date of admission: 08/02/18 01:25 Expected Date of Discharge: 08/02/18 Attending physician: ALYSSA BANG Primary care physician: Christiano Leonardo Physical Exam - Vital Signs Vital Signs: Vital Signs - Last 24 Hrs Temp Pulse Pulse Pulse Pulse Resp BP 08/02/18 10:51 14 08/02/18 09:00 65 14 08/02/18 07:53 97.5 F L 64 12 08/02/18 05:55 97.7 F 76 20 08/02/18 00:34 80 16 08/01/18 23:00 60 14 08/01/18 21:36 77 16 08/01/18 20:15 99.1 F 83 16 08/01/18 18:38 98.6 F 80 18 134/69 BP BP Pulse Ox 08/02/18 10:51 08/02/18 09:00 08/02/18 07:53 122/57 93 L 08/02/18 05:55 105/59 95 08/02/18 00:34 111/73 93 L 08/01/18 23:00 126/82 95 08/01/18 21:36 92 L 08/01/18 20:15 147/62 95 08/01/18 18:38 94 L - General General Appearance: Alert, Oriented x3, Cooperative Limitations: No limitations - Head Head exam: Normal inspection - Eye Eye exam: Normal appearance, PERRL, EOMI Pupils: Normal accommodation - ENT ENT exam: Normal exam, Mucous membranes moist, Normal external ear exam, Normal orophraynx Ear exam: Normal external inspection. negative: External canal tenderness Nasal Exam: Normal inspection. negative: Discharge, Sinus tenderness Mouth exam: Normal external inspection, Tongue normal Teeth exam: Normal inspection. negative: Dental caries Throat exam: Normal inspection. negative: Tonsillar erythema, Tonsillar exudate - Neck Neck exam: Normal inspection, Full ROM. negative: Tenderness - Respiratory Respiratory exam: Normal lung sounds bilaterally. negative: Respiratory distress - Cardiovascular Cardiovascular Exam: Regular rate, Normal rhythm, Normal heart sounds Peripheral Pulses: 2+: Dorsalis Pedis (R), Dorsalis Pedis (L) - GI/Abdominal GI/Abdominal exam: Soft, Normal bowel sounds. negative: Distended - Rectal Rectal exam: Deferred - exam: Deferred - Extremities Extremities exam: Normal inspection, Full ROM, Normal capillary refill. negative: Tenderness - Back Back exam: Reports: Normal inspection, Full ROM. Denies: Muscle spasm, Rash noted, Tenderness - Neurological Neurological exam: Alert, Normal gait, Oriented X3, Reflexes normal - Psychiatric Psychiatric exam: Normal affect, Normal mood - Skin Skin exam: Dry, Intact, Normal color, Warm, Other (large periumbilical silvery scaley patch, silvery scaley patches under each breast and axilla. NO exudate, no tenderness, skin is intact) Hospitalization - Hospitalization Admission Diagnosis: intractable vomiting, dizziness, weakness, cellulitis - Problem List/Discharge Diagnosis (1) Vomiting Current Visit: Yes Status: Acute Discharge Diagnosis: Vomiting type: unspecified Vomiting Intractability: intractable Nausea presence: with nausea Qualified Code(s): R11.2 - Nausea with vomiting, unspecified Base Code: R11.10 - VOMITING, UNSPECIFIED Comment: 08/02/18 - CT abdomen/pelvis negative for acute process, there was concern for infectious /inflammatory process to abdomen pannus sub Q tissue - Nausea and vomiting has since resolved since admission, tolerating clear liquid. Will trial regular diet prior to discharge - Reglan 5mg IVP Q 6hr PRN nausea - NS at 100ml/hr (2) Cellulitis Current Visit: Yes Status: Acute Discharge Diagnosis: Site of cellulitis: trunk Site of cellulitis of trunk: abdominal wall Qualified Code(s): L03.311 - Cellulitis of abdominal wall Base Code: L03.90 - CELLULITIS, UNSPECIFIED Comment: 08/02/18 - CT abdomen/pelvis suggesting inflammatory vs. infectious process to pannus soft tissue, will treat with Doxycycline 100mg BID prophylactically. There is a large psoriatic lesions to the periumbilical region which may be contributing to inflammatory changes on CT (3) DVT prophylaxis Current Visit: Yes Status: Acute Base Code: [id number] - Comment: 08/02/18 - Coumadin 5mg QD (4) Full code status Current Visit: Yes Status: Acute Base Code: Z78.9 - OTHER SPECIFIED HEALTH STATUS Comment: 08/02/18 - Hospitalization Course Disposition: Home, Self-Care Hospital Course: Nadeem Green is a 78 y/o male presenting to ED late yesterday evening for 12-18 hour history of profuse vomiting. Reports ate dinner he cooked for himself and his family the night before, woke early the morning of 08/01/18 with sudden onset of vomiting and continued through the day. After spending a few hours in ED receiving Pheneragan and fluids he had significant improvement and was ready for discharge. Upon discharging him he stood to leave, became dizzy and began vomiting again and was subsequently admitted for fluids and observation. Other pertinent medical history includes former smoker, COPD, CHF, HTN, a-fib on chronic anticoagulation with coumadin, CAD, CABG 2000 and PTCA, GERD, , prostate enlargement, pre-diabetes, osteoarthritis, psoriasis. While in the ED WBC 14.3, PT/INR 19/7/2.0, BUN 26, Cr 1.1, lactic acid 1.2, troponin <0.010, proBNP 380.4, lipase 75, urinalysis trace ketones. EKG atrial paced complexes, borderline T wave abnormalities, prolonge QT interval. CT abdomen/pelvis showed chronic pancreatitis, colonic diverticulosis without diverticulitis, sub Q fat stranding under abdominal pannus to correlate with acute infectious vs. inflammatory process. Head CT negative for acute process. Admitted to observation for fluid resuscitation and control of intractable vomiting. 08/02/18, 0900- resting in bed comfortably. Reports nausea and vomiting have resolved. Has not needed any antiemetics since arriving to floor. No further dizziness with ambulation. Denies every having blood in vomit or having any episodes of diarrhea. Has tolerated clear liquid diet this am and is requesting a regular diet because he is hungry. 08/02/18 1330- Tolerated regular diet without nausea, vomiting, diarrhea. No further dizziness with ambulation. WBC has normalized today. Stable for discharge home on home medications. Procedures: Imaging and X-Rays 08/01/18 19:12 ABDOMEN/PELVIS WO CONTRAST [CT] Stat 08/01/18 22:33 HEAD WO CONTRAST [CT] Stat Cardiology Procedures 08/01/18 19:12 EKG NOW Abnormal Labs: Abnormal Lab Results 08/01/18 08/01/18 08/01/18 Range/Units 19:00 19:00 19:00 WBC 14.3 H (4.2-12.2) K/uL RBC (4.40-5.70) M/uL Hgb 13.4 L (14.0-18.0) gm/dl Hct (42.0-52.0) % MCHC 30.7 L (32-36) g/dl RDW 15.6 H (11.5-14.5) % Plt Count (130-400) K/uL MPV 12.3 H (7.4-10.4) fl Neutrophils % 95.0 H (47-80) % Lymphocytes 3.0 L (16-45) % PT 19.7 H (9.5-12.1) SECONDS Carbon Dioxide 30.0 H (22-29) mmol/L BUN 26 H (8-23) mg/dL Random Glucose 172 H (74-109) mg/dL Lipase 75 H (13-60) U/L Urine Ketones (NEGATIVE) 08/01/18 08/02/18 Range/Units 21:30 11:13 WBC (4.2-12.2) K/uL RBC 4.22 L (4.40-5.70) M/uL Hgb 11.8 L (14.0-18.0) gm/dl Hct 39.7 L (42.0-52.0) % MCHC 29.7 L (32-36) g/dl RDW 15.6 H (11.5-14.5) % Plt Count 124 L (130-400) K/uL MPV 12.6 H (7.4-10.4) fl Neutrophils % 90.0 H (47-80) % Lymphocytes 7.0 L (16-45) % PT (9.5-12.1) SECONDS Carbon Dioxide (22-29) mmol/L BUN (8-23) mg/dL Random Glucose (74-109) mg/dL Lipase (13-60) U/L Urine Ketones Trace H (NEGATIVE) Condition at Discharge: (1) Good Discharge Medications - Discharge Medications Prescriptions: Doxycycline Hyclate 100 mg PO BID #14 cap Doxycycline Hyclate [Vibramycin] 100 mg PO BID 7 Days #14 capsule Home Medications: Ambulatory Orders Aspirin Chewable 81 mg PO DAILY 04/19/14 [Last Taken 1 Day Ago ~04/05/18] Furosemide [Lasix] 40 mg PO DAILY 04/19/14 [Last Taken 1 Day Ago ~04/05/18] Guaifenesin [Mucinex] 1,200 mg PO BID 04/19/14 [Last Taken 1 Day Ago ~04/05/18] Ipratropium/Albuterol [Duoneb] 3 ml IH BID PRN 04/19/14 [Last Taken 1 Day Ago ~ 04/05/18] Oxymetazoline HCl [Afrin] 15 ml NS ASDIR PRN 04/19/14 [Last Taken 1 Day Ago ~] Simvastatin [Zocor] 40 mg PO QHS 04/19/14 [Last Taken 1 Day Ago ~04/05/18] Tamsulosin HCl [Flomax] 0.4 mg PO QHS 04/19/14 [Last Taken 1 Day Ago ~04/05/18] Warfarin Sodium [Coumadin] 5 mg PO QHS 04/19/14 [Last Taken 1 Day Ago ~04/05/18] Famotidine [Pepcid] 20 mg PO DAILY tab 11/19/15 [Last Taken 1 Day Ago ~04/05/18 ] Finasteride 5 mg PO QHS tab 11/19/15 [Last Taken 1 Day Ago ~04/05/18] Metformin HCl 500 mg PO DAILY tab 11/19/15 [Last Taken 1 Day Ago ~04/05/18] Losartan Potassium 12.5 mg PO DAILY 09/12/16 [Last Taken 1 Day Ago ~04/05/18] Amiodarone HCl [Pacerone] 200 mg PO DAILY 02/04/17 [Last Taken 1 Day Ago ~] Doxycycline Hyclate 100 mg PO BID #14 cap 08/01/18 [Last Taken Unknown] Brimonidine Tartrate 1 drop OPTH BID 08/02/18 [Last Taken Unknown] Doxycycline Hyclate [Vibramycin] 100 mg PO BID 7 Days #14 capsule 08/02/18 [ Last Taken Unknown] Fenofibrate Nanocrystallized [Tricor] 160 mg PO DAILY 08/02/18 [Last Taken Unknown] Fenofibrate Nanocrystallized [Triglide] 160 mg PO DAILY 08/02/18 [Last Taken Unknown] Ketotifen Fumarate [[place]] 1 drop OPTH BID 08/02/18 [Last Taken Unknown] Discharge Plan - Discharge Instructions Activity at Discharge: Increase Activity as Tolerated Diet at Discharge: Diabetic Diet Instructions: Cellulitis (ED), Acute Nausea and Vomiting (ED) Additional Instructions: Appointment with Rosalba Bahena NP at Dr. Leonardo's office August 09 at 1 :45pm. Quality Measures - Quality Measures Quality Measures: Atrial Fibrillation & Atrial Flutter: Chronic Anticoagulation Therapy, Advance Directives, Coronary Artery Disease: Antiplatelet Therapy, Documentation of Current Medications in Medical Record, Elder Maltreatment Screen and Follow-Up Plan, Screening for High Blood Pressure and F/U Documented - Current Medications Quality Measure: Measure #130: Documentation of Current Medications Documentation of Current Medications: <Current Medications Documented/Reviewed> [G8427] - Blood Pressure Screening Quality Measure: Screening for High Blood Pressure and Follow-Up Documented Does Patient Have Any of the Following: Active Dx of HTN Blood Pressure Classification: Pre-Hypertensive BP Reading Systolic Measurement: 134 Diastolic Measurement: 69 Screening for High Blood Pressure: Patient Exclusion, Hx of HTN [G9744] - Atrial Fibrillation and Atrial Flutter Quality Measure: Atrial Fibrillation & Atrial Flutter: Chronic Anticoagulation Therapy Does Patient Have Any of the Following: No CHADS2 Risk Stratification: Age 75 or Greater, Hypertension, Diabetes Mellitus, Heart Failure or Impaired LVSF Risk Stratification Summary: One or more high risk factors OR more than one moderate risk factor exists. [G8972] Anticoagulation Therapy: <Oral anticoagulant Prescribed> [G8967] - Coronary Artery Disease Quality Measure: Measure #6: Coronary Artery Disease (CAD) Antiplatelet Therapy: <ASA or clopidogrel prescribed> [7526F] - Advance Directives Quality Measure: Measure #47: Care Plan Advance Directives Established: No Advance Directives Information Provided To Patient: No Advance Directives on File: No Living Will: No Power of Sheet Metal Roofer: No Advance Care Planning: <Care Plan/Decision Maker Documented; Discussed & Documented> [7821F] - Elder Abuse Suspicion Index Screening: Elder Abuse Suspicion Index Screening Rely on people for bathing, dressing, shopping, banking, etc: No Prevented from getting food, clothes, medication, etc: No Made to feel shamed or threatened by someone: No Forced to sign papers or use money against will: No Feel afraid, touched in ways not wanted or hurt physically: No Poor eye contact, withdrawn, malnourished, cuts or bruises: No Screening Result: Negative result EASI Reference Information: Shamar BERMUDEZ, Ronda C, Enoch D, La Nena Ding.Development and validation of a tool to assist physicians identification of elder abuse: The Elder Abuse Suspicion Index (EASI ). Journal of Elder Abuse and Neglect, 2008; 20 (3): 276-300. - Elder Maltreatment Screen Quality Measures: Elder Maltreatment Screen and Follow-Up Plan Elder Maltreatment Screen: <Negative, No Follow-Up Plan Required> [G8734]
[2018-08-02] MEDS ORDERED: TAMSULOSIN HCL 0.4 MG CAP.ER.24H PO SCH (22:00)
[2018-08-02] MEDS ORDERED: WARFARIN 5 MG TAB PO SCH (22:00)
[2018-08-02] MEDS ORDERED: Non-Formulary MISC (Finasteride [Finasteride] 5 MG) PO SCH (22:00)
[2018-08-02] MEDS ORDERED: SIMVASTATIN 20 MG TABLET PO SCH (22:00)
== END 2018-08-02 15:30 | disposition home or self-care (01) ==
LOC: ER 18:36 → INTOOBSV 08-02 01:25 → MEDSURG 08-02 01:25
PROVIDERS: ADMIT Internal Medicine; ATTEND Internal Medicine
DX: R11.2 Nausea with vomiting, unspecified (principal); R42 Dizziness and giddiness; R53.1 Weakness; L03.311 Cellulitis of abdominal wall; I50.9 Heart failure, unspecified; J44.9 Chronic obstructive pulmonary disease, unspecified; I10 Essential (primary) hypertension; J43.9 Emphysema, unspecified; I48.91 Unspecified atrial fibrillation; Z79.01 Long term (current) use of anticoagulants; I25.10 Atherosclerotic heart disease of native coronary artery without angina pectoris; E03.9 Hypothyroidism, unspecified; M19.90 Unspecified osteoarthritis, unspecified site; Z95.0 Presence of cardiac pacemaker; Z87.891 Personal history of nicotine dependence; Z95.5 Presence of coronary angioplasty implant and graft; Z95.1 Presence of aortocoronary bypass graft; Z98.61 Coronary angioplasty status
CPT/HCPCS: 70450; 74176; 80053; 81003; 83605; 83690; 83880; 84484; 85027; 85610; 85730; 87040; 93005; 93010; 99236; 99285; J2550; J7030

== ENCOUNTER 2018-09-30 11:47 | Emergency (ER) | payer MEDICARE, BC ==
[2018-09-30] MEDS ORDERED: METHYLPREDNISOLONE PF 125MG/VIAL IVP ONE (12:07)
[2018-09-30] MEDS ORDERED: IPRATROPIUM/ALBUTEROL (0.5MG/3MG) NEB INH ONE (12:18)
[2018-09-30 12:23] LABS: ABSOLUTE NEUTROPHIL COUNT 4.92; BASO % 0.5 % (0-6); EOS % 1.1 % (0-6); GRAN % 76.8 % (47-80); HEMATOCRIT 40.4 % (42.0-52.0); HEMOGLOBIN 12.2 gm/dl (14.0-18.0); LYMPH % 11.3 % (16-45); MEAN CELL VOLUME 92.7 fl (81-97); MEAN CORPUSCULAR HGB CONC 30.2 g/dl (32-36); MONO % 10.3 % (0-9); PLATELET COUNT 161 K/uL (130-400); RED BLOOD COUNT 4.36 M/uL (4.40-5.70); RED CELL DISTRIBUTION WIDTH 17.8 % (11.5-14.5); WHITE BLOOD COUNT W/O DIFF 6.4 K/uL (4.2-12.2)
[2018-09-30 12:25] LABS: MEAN CORPUSCULAR HEMOGLOBIN 27.9 pg (27-33)
--- NOTE | 2018-09-30 12:27 | Emergency Department Record ---
History of Present Illness - General Chief Complaint: Shortness of breath Stated Complaint: NATALIE Time Seen by Provider: 09/30/18 12:01 Source: Patient Mode of Arrival: Ambulatory Limitations: No limitations - History of Present Illness Initial Comments: pt here for increased sob. he states his sputum has been black to brown. he denies cp MD Complaint: Shortness of breath Onset/Timin -: Days(s) Severity: Mild Consistency: Getting worse Worsens With: Exertion Known History Of: COPD Associated Symptoms: Cough, Hemoptysis, Sputum production Treatment Prior to Arrival Comment:: nebulizer treatments 4x/day-last one at 1030 - Related Data Home Oxygen Amount: 2 Liters Home Medications Medication Instructions Recorded Confirmed Last Taken Fenofibrate Nanocrystallized 160 mg PO QAM 09/30/18 09/30/18 09/30/18 [Tricor] Hydrocodone/Acetaminophen [[place] 1 each PO ASDIR 09/30/18 09/30/18 Unknown 5-325 Tablet] Levothyroxine Sodium 25 mcg PO QAM 09/30/18 09/30/18 09/30/18 Metoprolol Succinate [Toprol Xl] 25 mg PO QAM 09/30/18 09/30/18 09/30/18 Potassium 99 mg PO BID 09/30/18 09/30/18 09/30/18 Tiotropium [place] [Spiriva] 18 mcg IH QAM 09/30/18 09/30/18 09/30/18 Warfarin Sodium [Coumadin] 2.5 mg PO DAILY 09/30/18 09/30/18 09/29/18 Previous Rx's Medication Instructions Recorded Doxycycline Hyclate 100 mg PO BID #13 cap 09/30/18 Allergies Allergy/AdvReac Type Severity Reaction Status Date / Time Iodinated Contrast- Oral and Allergy Severe SHORTNESS Verified 09/30/18 11:59 IV Dye OF BREATH [Iodinated Contrast Media - IV Dye] isosorbide [From Imdur] Allergy Severe SHORTNESS Verified 09/30/18 11:59 OF BREATH Penicillins Allergy Severe HIVES Verified 09/30/18 11:59 cephalexin monohydrate Allergy Intermediate ITCHING Verified 09/30/18 11:59 [From Keflex] sulfamethoxazole Allergy Unknown PT UNSURE Verified 09/30/18 11:59 [From Bactrim] OF REACTION trimethoprim [From Bactrim] Allergy Unknown PT UNSURE Verified 09/30/18 11:59 OF REACTION lisinopril AdvReac cough Verified 09/30/18 11:59 Travel Screening - Travel/Exposure Within Last 30 Days Have you traveled within the last 30 days?: No Review of Systems Reviewed: No additional complaints except as noted below Constitutional: Reports: As per HPI. Denies: Chills, Fever, Malaise, Night sweats, Weakness, Weight change Eyes: Reports: As per HPI. Denies: Eye discharge, Eye pain, Photophobia, Vision change ENT: Reports: As per HPI. Denies: Congestion, Dental pain, Ear pain, Epistaxis, Hearing loss, Throat pain Respiratory: Reports: As per HPI, Cough, Dyspnea. Denies: Hemoptysis, Stridor, Wheezes Cardiovascular: Reports: As per HPI. Denies: Arrhythmia, Chest pain, Dyspnea on exertion, Edema, Murmurs, Orthopnea, Palpitations, Paroxysmal nocturnal dyspnea, Rheumatic Fever, Syncope Endocrine: Reports: As per HPI. Denies: Fatigue, Heat or cold intolerance, Polydipsia, Polyuria Gastrointestinal: Reports: As per HPI. Denies: Abdominal pain, Constipation, Diarrhea, Hematemesis, Hematochezia, Melena, Nausea, Vomiting Genitourinary: Reports: As per HPI. Denies: Dysuria, Frequency, Hematuria, Incontinence, Retention, Testicular pain, Testicular mass, Urgency Musculoskeletal: Reports: As per HPI. Denies: Arthralgia, Back pain, Gout, Joint swelling, Myalgia, Neck pain Skin: Reports: As per HPI. Denies: Bruising, Change in color, Change in hair/nails, Lesions, Pruritus, Rash Neurological: Reports: As per HPI. Denies: Abnormal gait, Confusion, Headache, Numbness, Paresthesias, Seizure, Tingling, Tremors, Vertigo, Weakness Psychiatric: Reports: As per HPI. Denies: Anxiety, Auditory hallucinations, Depression, Homicidal thoughts, Suicidal thoughts, Visual hallucinations Hematological/Lymphatic: Reports: As per HPI. Denies: Anemia, Blood Clots, Easy bleeding, Easy bruising, Swollen glands Past Medical History - SOCIAL HISTORY Smoking Status: Former smoker Alcohol Use: None Drug Use: None - RESPIRATORY Hx Respiratory Disorders: Yes Hx Bronchitis: Yes Hx COPD: Yes Hx Dyspnea: Yes Comment:: emphysema, oxygen 2L at all times - CARDIOVASCULAR Hx Cardio Disorders: Yes Hx Abnormal EKG: Yes Hx Cardiac Cath: Yes Hx Chest Pain: Yes Hx CHF: Yes Hx Edema: Yes Hx Heart Attack: No Hx Hypertension: Yes Hx Irregular Heartbeat: Yes (afib in the past) Hx Pacemaker/Defib: Yes (pacer only) Hx Coronary Artery Disease: Yes Hx Coronary Artery Bypass Graft: Yes (QCABG 2000) Hx Percutaneous Transluminal Coronary Angioplasty (PTCA): Yes - NEURO Hx Neuro Disorders: No - GI Hx GI Disorders: Yes Hx Reflux: Yes Hx Wt Loss/Wt Gain: Yes (water retention -10#) - Hx Genitourinary Disorders: Yes Hx Prostate Problems: Yes - ENDOCRINE Hx Endocrine Disorders: Yes Hx Diabetes: Yes (pre diabetic) Hx Thyroid Disease: Yes - MUSCULOSKELETAL Hx Musculoskeletal Disorders: Yes Hx Arthritis: Yes - PSYCH Hx Psych Problems: No - HEMATOLOGY/ONCOLOGY Hx Hematology/Oncology Disorders: Yes Hx Bruising: Yes (On coumadin) Family Medical History Any Significant Family History?: Yes Hx Dementia: Mother Hx Diabetes: Mother Hx Heart Disease: Mother, Brother/Sister Hx HTN: Mother Hx Stroke: Father Physical Exam - General General Appearance: Alert, Oriented x3, Cooperative, Mild distress - Head Head exam: Normal inspection - Eye Eye exam: Normal appearance, PERRL, EOMI Pupils: Normal accommodation - ENT ENT exam: Normal exam, Mucous membranes moist, Normal external ear exam, Normal orophraynx Ear exam: Normal external inspection. negative: External canal tenderness Nasal Exam: Normal inspection. negative: Discharge, Sinus tenderness Mouth exam: Normal external inspection, Tongue normal Teeth exam: Normal inspection. negative: Dental caries Throat exam: Normal inspection. negative: Tonsillar erythema, Tonsillar exudate - Neck Neck exam: Normal inspection, Full ROM. negative: Tenderness - Respiratory Respiratory exam: Normal lung sounds bilaterally. negative: Respiratory distress - Cardiovascular Cardiovascular Exam: Regular rate, Normal rhythm, Normal heart sounds - GI/Abdominal GI/Abdominal exam: Soft, Normal bowel sounds. negative: Tenderness - Rectal Rectal exam: Deferred - exam: Deferred - Extremities Extremities exam: Full ROM, Normal capillary refill, Pedal edema, Tenderness, Other (erythema bilaterally, tenderness) - Back Back exam: Reports: Normal inspection, Full ROM. Denies: Muscle spasm, Rash noted, Tenderness - Neurological Neurological exam: Alert, CN II-XII intact, Normal gait, Oriented X3 - Psychiatric Psychiatric exam: Normal affect, Normal mood - Skin Skin exam: Dry, Intact, Normal color, Warm Course Vital Signs 09/30/18 11:50 Temperature 97.4 F L Pulse Rate 60 Respiratory 20 Rate Blood Pressure 108/63 Pulse Ox 94 L - Reevaluation(s) Reevaluation #1: 09/30/18 14:55 pt feels better Medical Decision Making - Lab Data Result diagrams: 09/30/18 12:05 09/30/18 12:05 Disposition Disposition: Discharge Clinical Impression: Pneumonia Qualifiers: Pneumonia type: due to unspecified organism Laterality: bilateral Lung location: lower lobe of lung Qualified Code(s): J18.1 - Lobar pneumonia, unspecified organism CHF (congestive heart failure) Qualifiers: Heart failure type: unspecified Heart failure chronicity: acute Qualified Code(s): I50.9 - Heart failure, unspecified Disposition: Home, Self-Care Condition: (1) Good Instructions: Community Acquired Pneumonia (ED), Heart Failure (ED) Additional Instructions: follow up with family doctor. return sooner if worse. have PT checked in 3 days. Prescriptions: Doxycycline Hyclate 100 mg PO BID #13 cap Forms: Patient Portal Access Quality - Quality Measures Quality Measures: N/A - Blood Pressure Screening Does Patient Have Any of the Following: No Blood Pressure Classification: Normal BP Reading Systolic Measurement: 108 Diastolic Measurement: 63 Screening for High Blood Pressure: < Normal BP, F/U Not Required > [G8783]
[2018-09-30 12:36] LABS: INR 2.1; PARTIAL THROMBOPLASTIN TIME 32.9 SECONDS (24.5-39.1); PROTHROMBIN TIME (PATIENT) 21.1 SECONDS (9.5-12.1)
[2018-09-30 12:37] LABS: BLOOD UREA NITROGEN 29 mg/dL (8-23); CREATININE 1.2 mg/dL (0.7-1.2); EST GLOMERULAR FILTRATION RATE > 60 mL/min
[2018-09-30 12:38] LABS: TOTAL PROTEIN 7.8 g/dL (6.6-8.7)
[2018-09-30 12:40] LABS: GLUCOSE,RANDOM 159 mg/dL (74-109)
[2018-09-30 12:42] LABS: ALT/SGPT 22 U/L (<41)
[2018-09-30 12:43] LABS: ALB/GLOB RATIO 1.3 (1.1-1.8); ALBUMIN 4.4 g/dL (4.0-5.0); ALKALINE PHOSPHATASE 82 U/L (40-129); AST/SGOT 29 U/L (10.0-50.0)
[2018-09-30] MEDS ORDERED: FUROSEMIDE IV 20MG/2ML VIAL IVP ONE (13:06)
[2018-09-30] MEDS ORDERED: DOXYCYCLINE HYCLATE 100 MG CAPSULE PO ONE (14:51)
--- NOTE | 2018-10-02 16:33 | RADIOLOGY REPORT ---
DATE: 09/30/2018 at 1233. EXAM: CHEST, TWO VIEWS. HISTORY: DIFFICULTY IN BREATHING. PRODUCTIVE COUGH. TECHNIQUE: Upright AP and lateral views of the chest. COMPARISON: Two-view chest radiographic examination dated 06/03/2018. FINDINGS: The frontal view is obtained with the patient in a lordotic position. Post median sternotomy changes are again demonstrated. A dual-lead transvenous cardiac stimulator remains in place with lead tips in the left atrium and right ventricle, respectively. The heart is not grossly enlarged. There is, however, borderline to mild pulmonary venous hypertension. Reticular opacity prominence in the lower lungs appears more pronounced in the interval raising the possibility of new mild interstitial edema. The lungs are hyperinflated consistent with chronic obstructive pulmonary disease. New mild posterior costophrenic angle blunting is present consistent with small effusions. There are degenerative changes scattered throughout the visualized spine. IMPRESSION: 1. POST MEDIAN STERNOTOMY CHANGES REDEMONSTRATED. 2. THE HEART IS NOT GROSSLY ENLARGED, THOUGH THERE DOES APPEAR TO BE NEW BORDERLINE TO MILD PULMONARY VENOUS HYPERTENSION AND NEW SMALL PLEURAL EFFUSIONS SUSPICIOUS FOR FLUID OVERLOAD/CONGESTIVE HEART FAILURE. RETICULAR OPACITY PROMINENCE IN EACH LUNG BASE HAS WORSENED IN THE INTERVAL LIKELY RELATING TO INTERSTITIAL EDEMA. ATYPICAL PNEUMONITIS LESS LIKELY. 3. NOT MENTIONED ABOVE IS REDEMONSTRATION OF CURVILINEAR CALCIFICATION ALONG THE POSTERIOR WALL OF THE HEART/LEFT VENTRICLE. Job Number: [id number] [facility]
== END 2018-09-30 15:21 | disposition home or self-care (01) ==
LOC: ER 11:47
DX: J18.1 Lobar pneumonia, unspecified organism (principal); I50.9 Heart failure, unspecified; R06.02 Shortness of breath; I10 Essential (primary) hypertension; Z99.81 Dependence on supplemental oxygen; Z79.01 Long term (current) use of anticoagulants; Z95.0 Presence of cardiac pacemaker
CPT/HCPCS: 71046; 80053; 83880; 84484; 85025; 85610; 85730; 93005; 93010; 94640; 96374; 96375; 99284; J1940; J2930

== ENCOUNTER 2019-02-07 00:14 | Observation (INO) | payer MEDICARE, BC ==
--- NOTE | 2019-02-07 00:19 | Emergency Department Record ---
History of Present Illness - General Stated complaint: NOSE BLEED Time Seen by Provider: 02/07/19 00:17 Source: Patient Mode of Arrival: Wheelchair Limitations: No limitations - History of Present Illness Initial comments: 78 yo male presents to ED for evaluation of bleeding from the nose (unsure which nare) that began approximately 75 minutes ago. Patient does report a history of similar symptoms previously, reports that he takes warfarin daily for atrial fibrillation history. Patient denies trauma or injury to the nose. Patient also reports history of septal perforation to the nose previously. MD complaint: Epistaxis Onset/Timin -: Minutes(s) Severity: Moderate Consistency: Constant Improves with: None Worsens with: None Context-Epistaxis: Warfarin use - Related Data Allergies Allergy/AdvReac Type Severity Reaction Status Date / Time Iodinated Contrast Media Allergy Severe SHORTNESS Verified 09/30/18 11:59 [Iodinated Contrast Media - OF BREATH IV Dye] isosorbide [From Imdur] Allergy Severe SHORTNESS Verified 09/30/18 11:59 OF BREATH Penicillins Allergy Severe HIVES Verified 09/30/18 11:59 cephalexin monohydrate Allergy Intermediate ITCHING Verified 09/30/18 11:59 [From Keflex] sulfamethoxazole Allergy Unknown PT UNSURE Verified 09/30/18 11:59 [From Bactrim] OF REACTION trimethoprim [From Bactrim] Allergy Unknown PT UNSURE Verified 09/30/18 11:59 OF REACTION lisinopril AdvReac cough Verified 09/30/18 11:59 Review of Systems Constitutional: Denies: Chills, Fever, Malaise, Night sweats Eyes: Denies: Eye discharge, Eye pain ENT: Reports: Epistaxis. Denies: Congestion, Ear pain Respiratory: Reports: Dyspnea (H/O COPD). Denies: Cough Cardiovascular: Denies: Chest pain, Dyspnea on exertion Endocrine: Denies: Fatigue, Heat or cold intolerance Gastrointestinal: Denies: Abdominal pain, Nausea, Vomiting Genitourinary: Denies: Incontinence, Retention Musculoskeletal: Denies: Arthralgia, Back pain Skin: Denies: Bruising, Change in color Neurological: Denies: Abnormal gait, Confusion, Headache, Seizure Psychiatric: Denies: Anxiety Hematological/Lymphatic: Reports: Easy bleeding, Easy bruising. Denies: Anemia, Blood Clots Past Medical History - SOCIAL HISTORY Smoking Status: Former smoker Drug Use: None - RESPIRATORY Hx Respiratory Disorders: Yes Hx Bronchitis: Yes Hx COPD: Yes Hx Dyspnea: Yes Comment:: emphysema, oxygen 2L at all times - CARDIOVASCULAR Hx Cardio Disorders: Yes Hx Abnormal EKG: Yes Hx Cardiac Cath: Yes Hx Chest Pain: Yes Hx CHF: Yes Hx Edema: Yes Hx Heart Attack: No Hx Hypertension: Yes Hx Irregular Heartbeat: Yes (afib in the past) Hx Pacemaker/Defib: Yes (pacer only) Hx Coronary Artery Disease: Yes Hx Coronary Artery Bypass Graft: Yes (QCABG 1999) Hx Percutaneous Transluminal Coronary Angioplasty (PTCA): Yes - NEURO Hx Neuro Disorders: No - GI Hx GI Disorders: Yes Hx Reflux: Yes Hx Wt Loss/Wt Gain: Yes (water retention -10#) - Hx Genitourinary Disorders: Yes Hx Prostate Problems: Yes - ENDOCRINE Hx Endocrine Disorders: Yes Hx Diabetes: Yes (pre diabetic) Hx Thyroid Disease: Yes - MUSCULOSKELETAL Hx Musculoskeletal Disorders: Yes Hx Arthritis: Yes - PSYCH Hx Psych Problems: No - HEMATOLOGY/ONCOLOGY Hx Hematology/Oncology Disorders: Yes Hx Bruising: Yes (On coumadin) Family Medical History Hx Dementia: Mother Hx Diabetes: Mother Hx Heart Disease: Mother, Brother/Sister Hx HTN: Mother Hx Stroke: Father Physical Exam - General General Appearance: Alert, Oriented x3, Cooperative, Moderate distress Limitations: No limitations - Head Head exam: Atraumatic, Normocephalic, Normal inspection Head exam detail: negative: Abrasion, Contusion, Weaver's sign, General tenderness, Hematoma, Laceration - Eye Eye exam: Normal appearance. negative: Conjunctival injection, Periorbital swelling, Periorbital tenderness, Scleral icterus - ENT Ear exam: negative: Auricular hematoma, Auricular trauma Nasal Exam: Active bleeding. negative: Discharge, Dried blood, Foreign body Mouth exam: negative: Drooling, Laceration, Muffled voice, Tongue elevation - Neck Neck exam: Normal inspection. negative: Meningismus, Tenderness - Respiratory Respiratory exam: Normal lung sounds bilaterally. negative: Rales, Respiratory distress, Rhonchi, Stridor - Cardiovascular Cardiovascular Exam: Regular rate, Normal rhythm, Normal heart sounds - GI/Abdominal GI/Abdominal exam: Soft. negative: Rebound, Rigid, Tenderness - Rectal Rectal exam: Deferred - exam: Deferred - Extremities Extremities exam: Normal inspection. negative: Pedal edema, Tenderness - Back Back exam: Denies: CVA tenderness (R), CVA tenderness (L) - Neurological Neurological exam: Alert, Oriented X3 - Psychiatric Psychiatric exam: Normal affect, Normal mood - Skin Skin exam: Normal color. negative: Abrasion Type of lesion: negative: abrasion Course - Reevaluation(s) Reevaluation #1: 02/07/19 00:45 Initial laboratory studies were reviewed and appear grossly unremarkable for an acute process except for the following: Hgb 10.7 INR 2.0 Reevaluation #2: 02/07/19 00:52 TLE soaked cotton balls were removed from the left nare, balloon packing placed into the left nare. TLE soaked cotton balls were left in the right nare for 10-15 minutes longer, then removed with no bleeding from the right nare. Nasal canula was shunted to the right for patient's COPD symptoms. Will observe for 45 minuted for rebleeding, and admit for repeat Hgb and observation if no re-bleeding occurs. Reevaluation #3: 02/07/19 01:39 Patient was reassessed, no further bleeding. Will admit for repeat Hgb in the AM, observation for delayed rebleeding. Reevaluation #4: 02/07/19 06:43 Case was discussed with Dr. Gr, will accept admission at this time. Medical Decision Making - Lab Data Result diagrams: 02/07/19 00:20 02/07/19 00:20 Disposition Disposition: Admit Clinical Impression: Epistaxis, Anticoagulated on Coumadin Anemia Qualifiers: Anemia type: other cause Other causes of anemia: other cause, not classified Qualified Code(s): D64.89 - Other specified anemias COPD (chronic obstructive pulmonary disease) Qualifiers: COPD type: unspecified COPD Qualified Code(s): J44.9 - Chronic obstructive pulmonary disease, unspecified Disposition: Still a Patient at [facility] Decision to Admit: Admit from ER Decision to Admit Date: 02/07/19 Decision to Admit Time: :40 Condition: (2) Stable Time of Disposition: :40 Quality - Quality Measures Quality Measures: N/A - Blood Pressure Screening Does Patient Have Any of the Following: No Blood Pressure Classification: Pre-Hypertensive BP Reading Systolic Measurement: 139 Diastolic Measurement: 65 Screening for High Blood Pressure: < Pre-Hypertensive BP, F/U Documented > [[id number]] Pre-Hypertensive Follow-up Interventions: Referral to alternative/primary care provider.
[2019-02-07 00:33] LABS: ABSOLUTE NEUTROPHIL COUNT 4.75; HEMOGLOBIN 10.7 gm/dl (14.0-18.0); MEAN CELL VOLUME 91.4 fl (81-97); MEAN CORPUSCULAR HEMOGLOBIN 26.4 pg (27-33); MEAN CORPUSCULAR HGB CONC 28.9 g/dl (32-36); MEAN PLATELET VOLUME 12.9 fl (7.4-10.4); PLATELET COUNT 161 K/uL (130-400); RED BLOOD COUNT 4.05 M/uL (4.40-5.70); RED CELL DISTRIBUTION WIDTH 18.8 % (11.5-14.5); WHITE BLOOD COUNT W/O DIFF 6.2 K/uL (4.2-12.2)
[2019-02-07 00:40] LABS: PROTHROMBIN TIME (PATIENT) 20.3 SECONDS (9.5-12.1)
[2019-02-07 00:43] LABS: BLOOD UREA NITROGEN 26 mg/dL (8-23); EST GLOMERULAR FILTRATION RATE > 60 mL/min
[2019-02-07 00:44] LABS: TOTAL PROTEIN 7.5 g/dL (6.6-8.7)
[2019-02-07 00:46] LABS: GLUCOSE,RANDOM 172 mg/dL (74-109)
[2019-02-07 00:49] LABS: ALB/GLOB RATIO 1.1 (1.1-1.8); ALKALINE PHOSPHATASE 78 U/L (40-129); ALT/SGPT 23 U/L (<41); ANISOCYTOSIS 1+; AST/SGOT 27 U/L (10.0-50.0)
[2019-02-07] MEDS ORDERED: HYDROCODONE/APAP 5/325MG TABLET PO PRN ×2 (02:11→08:10)
[2019-02-07] MEDS ORDERED: IPRATROPIUM/ALBUTEROL (0.5MG/3MG) NEB INH PRN ×2 (02:11→06:02)
[2019-02-07] MEDS ORDERED: LEVOTHYROXINE SODIUM 25 MCG TABLET PO SCH (07:00)
[2019-02-07 07:47] LABS: ABSOLUTE NEUTROPHIL COUNT 4.64; BASO % 0.3 % (0-6); GRAN % 76.1 % (47-80); HEMATOCRIT 36.3 % (42.0-52.0); HEMOGLOBIN 10.6 gm/dl (14.0-18.0); LYMPH % 13.1 % (16-45); MEAN CELL VOLUME 91.2 fl (81-97); MEAN CORPUSCULAR HEMOGLOBIN 26.6 pg (27-33); MEAN CORPUSCULAR HGB CONC 29.2 g/dl (32-36); MEAN PLATELET VOLUME 13.2 fl (7.4-10.4); MONO % 9.5 % (0-9); PLATELET COUNT 143 K/uL (130-400); RED BLOOD COUNT 3.98 M/uL (4.40-5.70); RED CELL DISTRIBUTION WIDTH 18.7 % (11.5-14.5); WHITE BLOOD COUNT W/O DIFF 6.1 K/uL (4.2-12.2)
[2019-02-07 08:00] LABS: BLOOD UREA NITROGEN 25 mg/dL (8-23); CREATININE 0.9 mg/dL (0.7-1.2); EST GLOMERULAR FILTRATION RATE > 60 mL/min; GLUCOSE,RANDOM 163 mg/dL (74-109)
--- NOTE | 2019-02-07 09:44 | History & Physical ---
History of Present Illness - Date of Service Date of Service for History & Physical: 02/07/19 - History of Present Illness Admitting Diagnosis: Epistaxis. Anticoagulated on Coumadin. COPD-oysgen dependent. Anemia History of Present Illness: Mr. Green is a 78 y/o male here with complaint of nose bleed which began last night. The patient says that it began spontaneously and he has not had any injury to the nose or stuck any objects in the nose. He does war nasal cannula oxygen for his COPD and notes that his humidifier has not been working so his no se has become dry. He also has atrial fibrillation and is on chronic anticoagulation with Coumadin. He states that he has been taking his medication regularly. On arrival to the ED the patient continued to have bleeding from the left nasal passage and a Rhino rocket nasal packing was placed. The patient's hemoglobin was noted to be 10.6 gm/dL but all other labs were within normal limits. The pat ient is admitted for observation until resolution of the nasal bleeding. PCP: Dr. Christiano Leonardo. Travel Screening - Travel/Exposure Within Last 30 Days Have you traveled within the last 30 days?: No - Travel/Exposure Within Last Year Have you traveled outside the [place] in the last year?: No - Additonal Travel Details Have you been exposed to anyone with a communicable illness?: No - Travel Symptoms Symptom Screening: None Review of Systems Constitutional: Denies: Chills, Fever, Malaise, Night sweats Eyes: Denies: Eye discharge, Eye pain ENT: Reports: Epistaxis. Denies: Congestion, Ear pain Respiratory: Reports: Dyspnea (H/O COPD). Denies: Cough Cardiovascular: Denies: Chest pain, Dyspnea on exertion Endocrine: Denies: Fatigue, Heat or cold intolerance Gastrointestinal: Denies: Abdominal pain, Nausea, Vomiting Genitourinary: Denies: Incontinence, Retention Musculoskeletal: Denies: Arthralgia, Back pain Skin: Denies: Bruising, Change in color Neurological: Denies: Abnormal gait, Confusion, Headache, Seizure Psychiatric: Denies: Anxiety Hematological/Lymphatic: Reports: Easy bleeding, Easy bruising. Denies: Anemia, Blood Clots Past Medical History - SOCIAL HISTORY Smoking Status: Former smoker Drug Use: None - RESPIRATORY Hx Respiratory Disorders: Yes Hx Bronchitis: Yes Hx COPD: Yes Hx Dyspnea: Yes Comment:: emphysema, oxygen 2L at all times - CARDIOVASCULAR Hx Cardio Disorders: Yes Hx Abnormal EKG: Yes Hx Cardiac Cath: Yes Hx Chest Pain: Yes Hx CHF: Yes Hx Edema: Yes Hx Heart Attack: No Hx Hypertension: Yes Hx Irregular Heartbeat: Yes (afib in the past) Hx Pacemaker/Defib: Yes (pacer only) Hx Coronary Artery Disease: Yes Hx Coronary Artery Bypass Graft: Yes (QCABG 1999) Hx Percutaneous Transluminal Coronary Angioplasty (PTCA): Yes - NEURO Hx Neuro Disorders: No - GI Hx GI Disorders: Yes Hx Reflux: Yes Hx Wt Loss/Wt Gain: Yes (water retention -10#) - Hx Genitourinary Disorders: Yes Hx Prostate Problems: Yes - ENDOCRINE Hx Endocrine Disorders: Yes Hx Diabetes: Yes (pre diabetic) Hx Thyroid Disease: Yes - MUSCULOSKELETAL Hx Musculoskeletal Disorders: Yes Hx Arthritis: Yes - PSYCH Hx Psych Problems: No - HEMATOLOGY/ONCOLOGY Hx Hematology/Oncology Disorders: Yes Hx Bruising: Yes (On coumadin) Family Medical History Hx Dementia: Mother Hx Diabetes: Mother Hx Heart Disease: Mother, Brother/Sister Hx HTN: Mother Hx Stroke: Father H&P Meds/Allergies - Allergies Allergies: Allergies Allergy/AdvReac Type Severity Reaction Status Date / Time Iodinated Contrast Media Allergy Severe SHORTNESS Verified 09/30/18 11:59 [Iodinated Contrast Media - OF BREATH IV Dye] isosorbide [From Imdur] Allergy Severe SHORTNESS Verified 09/30/18 11:59 OF BREATH Penicillins Allergy Severe HIVES Verified 09/30/18 11:59 cephalexin monohydrate Allergy Intermediate ITCHING Verified 09/30/18 11:59 [From Keflex] sulfamethoxazole Allergy Unknown PT UNSURE Verified 09/30/18 11:59 [From Bactrim] OF REACTION trimethoprim [From Bactrim] Allergy Unknown PT UNSURE Verified 09/30/18 11:59 OF REACTION lisinopril AdvReac cough Verified 09/30/18 11:59 - Active Medications Active Medications: Current Medications Hydrocodone Bitart/Acetaminophen (Coin 5mg/325mg) 1 each PO ONCE PRN PRN Reason: PAIN - MILD (1-4) Hydrocodone Bitart/Acetaminophen (Coin 5mg/325mg) 1 each PO ASDIR PRN PRN Reason: PAIN - MILD (1-4) Albuterol/Ipratropium (Duoneb) 3 ml INH RESP.Q4H PRN PRN Reason: WHEEZING Last Admin: 02/07/19 06:00 Dose: 3 ml Documented by: Amiodarone HCl (Pacerone) 200 mg PO QAM [facility] Aspirin (Aspirin Chewable) 81 mg PO QAM [facility] Famotidine (Pepcid) 20 mg PO QHS [facility] Guaifenesin (Mucinex) 1,200 mg PO BID [facility] Levothyroxine Sodium (Synthroid) 25 mcg PO DAILYTHY [facility] Last Admin: 02/07/19 07:27 Dose: Not Given Documented by: Losartan Potassium (Cozaar) 12.5 mg PO QHS [facility] Metformin HCl (Glucophage Ir) 500 mg PO QAM [facility] Metoprolol Succinate (Toprol Xl) 25 mg PO QAM [facility] Non-Formulary Medication (Brimonidine Tartrate [Brimonidine Tartrate]) 1 drop OPTH BID [facility] Non-Formulary Medication (Fenofibrate Nanocrystallized [Tricor]) 160 mg PO QAM [facility] Non-Formulary Medication (Finasteride [Finasteride]) 5 mg PO QHS [facility] Non-Formulary Medication (Potassium [Potassium]) 99 mg PO BID [facility] Simvastatin (Zocor) 40 mg PO QHS [facility] Tamsulosin HCl (Flomax) 0.4 mg PO QHS [facility] Warfarin Sodium (Coumadin) 2.5 mg PO DAILY [facility] Warfarin Sodium (Coumadin) 5 mg PO QHS [facility] Physical Exam - Vital Signs Vital Signs: Vital Signs - Last 24 Hrs Temp Pulse Pulse Resp BP BP Pulse Ox 02/07/19 08:47 98.5 F 83 14 118/63 96 02/07/19 06:00 75 20 95 02/07/19 02:17 75 24 92 L 02/07/19 02:15 98.0 F 81 24 134/74 92 L 02/07/19 01:44 75 131/76 92 L 02/07/19 00:59 20 02/07/19 00:53 92 L 02/07/19 00:41 87 L 02/07/19 00:18 80 30 H 139/65 - General General Appearance: Alert, Oriented x3, Cooperative, Moderate distress Limitations: No limitations - Head Head exam: Atraumatic, Normocephalic, Normal inspection Head exam detail: negative: Abrasion, Contusion, Weaver's sign, General tenderness, Hematoma, Laceration - Eye Eye exam: Normal appearance. negative: Conjunctival injection, Periorbital swelling, Periorbital tenderness, Scleral icterus - ENT Ear exam: negative: Auricular hematoma, Auricular trauma Nasal Exam: Dried blood, Other (Rhino rocket in left nares, perforation of nasal septum observed. ). negative: Discharge, Foreign body Mouth exam: negative: Drooling, Laceration, Muffled voice, Tongue elevation - Neck Neck exam: Normal inspection. negative: Meningismus, Tenderness - Respiratory Respiratory exam: Normal lung sounds bilaterally. negative: Rales, Respiratory distress, Rhonchi, Stridor - Cardiovascular Cardiovascular Exam: Regular rate, Normal rhythm, Normal heart sounds Peripheral Pulses: 3+: Radial (R), Radial (L), Dorsalis Pedis (R), Dorsalis Pedis (L) - GI/Abdominal GI/Abdominal exam: Soft. negative: Rebound, Rigid, Tenderness - Rectal Rectal exam: Deferred - exam: Deferred - Extremities Extremities exam: Normal inspection. negative: Pedal edema, Tenderness - Back Back exam: Denies: CVA tenderness (R), CVA tenderness (L) - Neurological Neurological exam: Alert, Oriented X3 - Psychiatric Psychiatric exam: Normal affect, Normal mood - Skin Skin exam: Normal color. negative: Abrasion Type of lesion: negative: abrasion Results - Labs Result Diagrams: 02/07/19 07:40 02/07/19 07:40 Labs Last 24 Hours: Laboratory Results - last 24 hr 02/07/19 02/07/19 02/07/19 00:20 00:20 00:20 WBC 6.2 RBC 4.05 L Hgb 10.7 L Hct 37.0 L MCV 91.4 MCH 26.4 L MCHC 28.9 L RDW 18.8 H Plt Count 161 MPV 12.9 H Gran % Neutrophils % 78.0 Band Neutrophils % 1.0 Lymphocytes % Monocytes % Eosinophils % Not Reportable Basophils % Not Reportable Absolute Neutrophils 4.75 Lymphocytes 11.0 L Monocytes 9.0 Basophils 1.0 Anisocytosis 1+ PT 20.3 H INR 2.0 Sodium 139 Potassium 4.5 Chloride 103 Carbon Dioxide 27.0 Anion Gap 9.0 BUN 26 H Creatinine 1.0 Estimated GFR > 60 Random Glucose 172 H Calcium 9.9 Total Bilirubin 0.70 AST 27 ALT 23 Alkaline Phosphatase 78 Total Protein 7.5 Albumin 4.0 Globulin 3.5 Albumin/Globulin Ratio 1.1 02/07/19 02/07/19 07:40 07:40 WBC 6.1 RBC 3.98 L Hgb 10.6 L Hct 36.3 L MCV 91.2 MCH 26.6 L MCHC 29.2 L RDW 18.7 H Plt Count 143 MPV 13.2 H Gran % 76.1 Neutrophils % Band Neutrophils % Lymphocytes % 13.1 L Monocytes % 9.5 H Eosinophils % 1.0 Basophils % 0.3 Absolute Neutrophils 4.64 Lymphocytes Monocytes Basophils Anisocytosis PT INR Sodium 143 Potassium 4.3 Chloride 104 Carbon Dioxide 30.0 H Anion Gap 9.0 BUN 25 H Creatinine 0.9 Estimated GFR > 60 Random Glucose 163 H Calcium 9.8 Total Bilirubin AST ALT Alkaline Phosphatase Total Protein Albumin Globulin Albumin/Globulin Ratio VTE H&P Assessment - Risk for VTE Risk for VTE: Yes Risk Level: High Risk Assessment Date: 02/07/19 Risk Assessment Time: 11:06 VTE Orders Placed or Will Be Placed: Yes Plan - Detailed Diagnosis and Plan (1) Epistaxis Current Visit: Yes Status: Acute Base Code: R04.0 - EPISTAXIS Comment: 02/07/19: - Epistaxis while on anticogulation. Hgb 10.6, PT 2.0 - Continue with Coumadin at current dose. - Remove Rhino rocket and use nasal saline for clearing. - Patient will require nasal humidifcation at discharge. (2) Anemia Current Visit: Yes Status: Acute Qualifiers: Anemia type: other cause Other causes of anemia: other cause, not classified Qualified Code(s): D64.89 - Other specified anemias Base Code: D64.9 - ANEMIA, UNSPECIFIED Comment: 02/07/19: - Hgb 10.6 MCV 91.2, likely blood loss and chronic disease. - Check labs within 1 week of discharge. (3) Chronic a-fib Current Visit: Yes Status: Acute Base Code: I48.20 - CHRONIC ATRIAL FIBRILLATION, UNSPECIFIED Comment: 02/07/19: - EKG: - Resume BB, Amioderone, and anticogulation. - Telemetry: (4) Anticoagulated on Coumadin Current Visit: Yes Status: Acute Base Code: Z79.01 - CABINET ABRASIVE SANDBLASTER (CURRENT) USE OF ANTICOAGULANTS Comment: 02/07/19: - PT/INR: 20.3/2.0 - Continue therapy with Coumadin 20.5mg/5mg alternating days. (5) Hx of cardiac pacemaker Current Visit: Yes Status: Acute Base Code: Z95.0 - PRESENCE OF CARDIAC PACEMAKER Comment: 02/07/19: - Pacer impplanted several years ago. - Telemetry: (6) DVT prophylaxis Current Visit: No Status: Acute Base Code: [id number] - Comment: 02/07/19 - On therapeutic dosing of Coumadin 2.5/5mg alterniting days. (7) Full code status Current Visit: No Status: Acute Base Code: Z78.9 - OTHER SPECIFIED HEALTH STATUS Comment: 02/07/19: - Full code status.
[2019-02-07] MEDS ORDERED: AMIODARONE HCL 200 MG TABLET PO SCH (10:00)
[2019-02-07] MEDS ORDERED: FENOFIBRATE NANOCRYSTALLIZED 160 MG PO SCH (10:00)
[2019-02-07] MEDS ORDERED: ASPIRIN 81 MG CHEWABLE TABLET PO SCH (10:00)
[2019-02-07] MEDS ORDERED: METFORMIN 500 MG TABLET PO SCH (10:00)
[2019-02-07] MEDS ORDERED: POTASSIUM 99 MG PO SCH (10:00)
[2019-02-07] MEDS ORDERED: BRIMONIDINE TARTRATE OPTH SCH (10:00)
[2019-02-07] MEDS ORDERED: GUAIFENESIN 1,200 MG TABLET PO SCH (10:00)
[2019-02-07] MEDS ORDERED: WARFARIN 2.5 MG TAB PO SCH (10:00)
[2019-02-07] MEDS ORDERED: METOPROLOL SUCC 25 MG TAB.ER PO SCH (10:00)
--- NOTE | 2019-02-07 15:40 | Discharge Summary ---
Providers Discharge Summary Date: 02/07/19 Date of admission: 02/07/19 02:06 Attending physician: ALYSSA BANG Primary care physician: Christiano Leonardo Physical Exam - Vital Signs Vital Signs: Vital Signs - Last 24 Hrs Temp Pulse Pulse Resp BP BP BP 02/07/19 12:50 98.3 F 74 18 127/69 02/07/19 09:00 83 14 02/07/19 08:47 98.5 F 83 14 118/63 02/07/19 06:00 75 20 02/07/19 02:17 75 24 02/07/19 02:15 98.0 F 81 24 134/74 02/07/19 01:44 75 131/76 02/07/19 00:59 20 02/07/19 00:53 02/07/19 00:41 02/07/19 00:18 80 30 H 139/65 Pulse Ox 02/07/19 12:50 97 02/07/19 09:00 02/07/19 08:47 96 02/07/19 06:00 95 02/07/19 02:17 92 L 02/07/19 02:15 92 L 02/07/19 01:44 92 L 02/07/19 00:59 02/07/19 00:53 92 L 02/07/19 00:41 87 L 02/07/19 00:18 - General General Appearance: Alert, Oriented x3, Cooperative, Moderate distress Limitations: No limitations - Head Head exam: Atraumatic, Normocephalic, Normal inspection Head exam detail: negative: Abrasion, Contusion, Weaver's sign, General tenderness, Hematoma, Laceration - Eye Eye exam: Normal appearance. negative: Conjunctival injection, Periorbital swelling, Periorbital tenderness, Scleral icterus - ENT Ear exam: negative: Auricular hematoma, Auricular trauma Nasal Exam: Dried blood, Other (Rhino rocket in left nares, perforation of nasal septum observed. ). negative: Discharge, Foreign body Mouth exam: negative: Drooling, Laceration, Muffled voice, Tongue elevation - Neck Neck exam: Normal inspection. negative: Meningismus, Tenderness - Respiratory Respiratory exam: Normal lung sounds bilaterally. negative: Rales, Respiratory distress, Rhonchi, Stridor - Cardiovascular Cardiovascular Exam: Regular rate, Normal rhythm, Normal heart sounds Peripheral Pulses: 3+: Radial (R), Radial (L), Dorsalis Pedis (R), Dorsalis Pedis (L) - GI/Abdominal GI/Abdominal exam: Soft. negative: Rebound, Rigid, Tenderness - Rectal Rectal exam: Deferred - exam: Deferred - Extremities Extremities exam: Normal inspection. negative: Pedal edema, Tenderness - Back Back exam: Denies: CVA tenderness (R), CVA tenderness (L) - Neurological Neurological exam: Alert, Oriented X3 - Psychiatric Psychiatric exam: Normal affect, Normal mood - Skin Skin exam: Normal color. negative: Abrasion Type of lesion: negative: abrasion Hospitalization - Hospitalization Admission Diagnosis: Epistaxis. Anticoagulated on Coumadin. COPD-oysgen dependent. Anemia - Problem List/Discharge Diagnosis (1) Epistaxis Current Visit: Yes Status: Acute Base Code: R04.0 - EPISTAXIS Comment: 02/07/19: - Epistaxis while on anticogulation. Hgb 10.6, PT 2.0 - Continue with Coumadin at current dose. - Remove Rhino rocket and use nasal saline for clearing. - Patient will require nasal humidifcation at discharge. (2) Anemia Current Visit: Yes Status: Acute Discharge Diagnosis: Anemia type: other cause Other causes of anemia: other cause, not classified Qualified Code(s): D64.89 - Other specified anemias Base Code: D64.9 - ANEMIA, UNSPECIFIED Comment: 02/07/19: - Hgb 10.6 MCV 91.2, likely blood loss and chronic disease. - Check labs within 1 week of discharge. (3) Chronic a-fib Current Visit: Yes Status: Acute Base Code: I48.20 - CHRONIC ATRIAL FIBRILLATION, UNSPECIFIED Comment: 02/07/19: - EKG: - Resume BB, Amioderone, and anticogulation. - Telemetry: (4) Anticoagulated on Coumadin Current Visit: Yes Status: Acute Base Code: Z79.01 - USP (CURRENT) USE OF ANTICOAGULANTS Comment: 02/07/19: - PT/INR: 20.3/2.0 - Continue therapy with Coumadin 20.5mg/5mg alternating days. (5) Hx of cardiac pacemaker Current Visit: Yes Status: Acute Base Code: Z95.0 - PRESENCE OF CARDIAC PACEMAKER Comment: 02/07/19: - Pacer impplanted several years ago. - Telemetry: (6) DVT prophylaxis Current Visit: No Status: Acute Base Code: [id number] - Comment: 02/07/19 - On therapeutic dosing of Coumadin 2.5/5mg alterniting days. (7) Full code status Current Visit: No Status: Acute Base Code: Z78.9 - OTHER SPECIFIED HEALTH STATUS Comment: 02/07/19: - Full code status. - Hospitalization Course Hospital Course: Mr. Green is a 78 y/o male here with complaint of nose bleed which began last night. The patient says that it began spontaneously and he has not had any injury to the nose or stuck any objects in the nose. He does war nasal cannula oxygen for his COPD and notes that his humidifier has not been working so his nose has become dry. He also has atrial fibrillation and is on chronic anticoagulation with Coumadin. He states that he has been taking his medication regularly. On arrival to the ED the patient continued to have bleeding from the left nasal passage and a Rhino rocket nasal packing was placed. The patient's hemoglobin was noted to be 10.6 gm/dL but all other labs were within normal limits. The patient is admitted for observation until resolution of the nasal bleeding. PCP: Dr. Christiano Leonardo. Abnormal Labs: Abnormal Lab Results 02/07/19 02/07/19 02/07/19 Range/Units 00:20 00:20 00:20 RBC 4.05 L (4.40-5.70) M/uL Hgb 10.7 L (14.0-18.0) gm/dl Hct 37.0 L (42.0-52.0) % MCH 26.4 L (27-33) pg MCHC 28.9 L (32-36) g/dl RDW 18.8 H (11.5-14.5) % MPV 12.9 H (7.4-10.4) fl Lymphocytes % (16-45) % Monocytes % (0-9) % Lymphocytes 11.0 L (16-45) % PT 20.3 H (9.5-12.1) SECONDS Carbon Dioxide (22-29) mmol/L BUN 26 H (8-23) mg/dL Random Glucose 172 H (74-109) mg/dL 02/07/19 02/07/19 Range/Units 07:40 07:40 RBC 3.98 L (4.40-5.70) M/uL Hgb 10.6 L (14.0-18.0) gm/dl Hct 36.3 L (42.0-52.0) % MCH 26.6 L (27-33) pg MCHC 29.2 L (32-36) g/dl RDW 18.7 H (11.5-14.5) % MPV 13.2 H (7.4-10.4) fl Lymphocytes % 13.1 L (16-45) % Monocytes % 9.5 H (0-9) % Lymphocytes (16-45) % PT (9.5-12.1) SECONDS Carbon Dioxide 30.0 H (22-29) mmol/L BUN 25 H (8-23) mg/dL Random Glucose 163 H (74-109) mg/dL Condition at Discharge: (2) Stable Discharge Medications - Discharge Medications Home Medications: Ambulatory Orders Aspirin Chewable 81 mg PO QAM 04/19/14 [Last Taken 02/06/19] Guaifenesin [Mucinex] 1,200 mg PO BID 04/19/14 [Last Taken 02/06/19] Ipratropium/Albuterol [Duoneb] 3 ml IH BID PRN 04/19/14 [Last Taken 02/06/19] Oxymetazoline HCl [Afrin] 15 ml NS ASDIR PRN 04/19/14 [Last Taken 02/06/19] Simvastatin [Zocor] 40 mg PO QHS 04/19/14 [Last Taken 1 Day Ago ~02/06/19] Tamsulosin HCl [Flomax] 0.4 mg PO QHS 04/19/14 [Last Taken 1 Day Ago ~02/06/19] Warfarin Sodium [Coumadin] 5 mg PO QHS 04/19/14 [Last Taken 1 Day Ago ~02/06/19] Famotidine [Pepcid] 20 mg PO QHS tab 11/19/15 [Last Taken 02/06/19] Finasteride 5 mg PO QHS tab 11/19/15 [Last Taken 02/06/19] Metformin HCl 500 mg PO QAM tab 11/19/15 [Last Taken 02/06/19] Losartan Potassium 12.5 mg PO QHS 09/12/16 [Last Taken 02/06/19] Amiodarone HCl [Pacerone] 200 mg PO QAM 02/04/17 [Last Taken 02/06/19] Brimonidine Tartrate 1 drop OPTH BID 08/02/18 [Last Taken 02/06/19] Fenofibrate Nanocrystallized [Tricor] 160 mg PO QAM 09/30/18 [Last Taken 02/06/19] Hydrocodone/Acetaminophen [[place]ham 5-325 Tablet] 1 each PO ASDIR PRN 09/30/18 [Last Taken Unknown] Levothyroxine Sodium 25 mcg PO QAM 09/30/18 [Last Taken 02/06/19] Metoprolol Succinate [Toprol Xl] 25 mg PO QAM 09/30/18 [Last Taken 02/06/19] Potassium 99 mg PO BID 09/30/18 [Last Taken 02/06/19] Warfarin Sodium [Coumadin] 2.5 mg PO DAILY 09/30/18 [Last Taken 1 Day Ago ~02/06/19] Discharge Plan - Discharge Instructions Activity at Discharge: Wear Oxygen At All Times Instructions: Nosebleed (GEN) Additional Instructions: Activity: TOLERATED Diet: TOLERATED Consults: [] Follow Up: []WITH DR LEONARDO SCHEDULED Dressing/Wound Care: (Type) (Change) Additional: [] Appointment with Dr. Leonardo February 13 at 1:30pm. Resume medications as prescribed. Check with Dr. Leonardo regarding your Coumadin if you continue to have nose bleeds. If you have acute nose bleeds please return to ED. Quality Measures - Quality Measures Quality Measures: Atrial Fibrillation & Atrial Flutter: Chronic Anticoagulation Therapy, Advance Directives, Coronary Artery Disease: Antiplatelet Therapy, Documentation of Current Medications in Medical Record, Elder Maltreatment Screen and Follow-Up Plan, Screening for High Blood Pressure and F/U Documented - Current Medications Quality Measure: Measure #130: Documentation of Current Medications Documentation of Current Medications: <Current Medications Documented/Reviewed> [G8427] - Blood Pressure Screening Quality Measure: Screening for High Blood Pressure and Follow-Up Documented Does Patient Have Any of the Following: Active Dx of HTN Blood Pressure Classification: Pre-Hypertensive BP Reading Systolic Measurement: 139 Diastolic Measurement: 65 Screening for High Blood Pressure: Patient Exclusion, Hx of HTN [G9744] - Atrial Fibrillation and Atrial Flutter Quality Measure: Atrial Fibrillation & Atrial Flutter: Chronic Anticoagulation Therapy Does Patient Have Any of the Following: No CHADS2 Risk Stratification: Age 75 or Greater, Hypertension, Diabetes Mellitus, Heart Failure or Impaired LVSF Risk Stratification Summary: One or more high risk factors OR more than one moderate risk factor exists. [K1298] Anticoagulation Therapy: <Oral anticoagulant Prescribed> [Z0246] - Coronary Artery Disease Quality Measure: Measure #6: Coronary Artery Disease (CAD) Antiplatelet Therapy: <ASA or clopidogrel prescribed> [9446F] - Advance Directives Quality Measure: Measure #47: Care Plan Advance Directives Established: No Advance Directives Information Provided To Patient: No Advance Directives on File: No Living Will: No Power of Production Line Worker: No Advance Care Planning: <Care Plan/Decision Maker Not Decided; Discussed & Documented> [4903F] - Elder Abuse Suspicion Index Screening: Elder Abuse Suspicion Index Screening Rely on people for bathing, dressing, shopping, banking, etc: No Prevented from getting food, clothes, medication, etc: No Made to feel shamed or threatened by someone: No Forced to sign papers or use money against will: No Feel afraid, touched in ways not wanted or hurt physically: No Poor eye contact, withdrawn, malnourished, cuts or bruises: No Screening Result: Negative result EASI Reference Information: Shamar BERMUDEZ, Ronda C, Enoch D, La Nena Ding.Development and validation of a tool to assist physicians identification of elder abuse: The Elder Abuse Suspicion Index (EASI ). Journal of Elder Abuse and Neglect, 2008; 20 (3): 276-300. - Elder Maltreatment Screen Quality Measures: Elder Maltreatment Screen and Follow-Up Plan Elder Maltreatment Screen: <Negative, No Follow-Up Plan Required> [G2379]
[2019-02-07] MEDS ORDERED: WARFARIN 5 MG TAB PO SCH (22:00)
[2019-02-07] MEDS ORDERED: Non-Formulary MISC (Finasteride [Finasteride] 5 MG) PO SCH (22:00)
[2019-02-07] MEDS ORDERED: TAMSULOSIN HCL 0.4 MG CAP.ER.24H PO SCH (22:00)
[2019-02-07] MEDS ORDERED: FAMOTIDINE 20MG TABLET PO SCH (22:00)
[2019-02-07] MEDS ORDERED: SIMVASTATIN 20 MG TABLET PO SCH (22:00)
[2019-02-07] MEDS ORDERED: LOSARTAN POTASSIUM 25 MG TABLET PO SCH (22:00)
== END 2019-02-07 15:47 | disposition home or self-care (01) ==
LOC: ER 00:14 → MEDSURG 02:06
PROVIDERS: ADMIT Internal Medicine; ATTEND Internal Medicine
DX: R04.0 Epistaxis (principal); D64.89 Other specified anemias; J44.9 Chronic obstructive pulmonary disease, unspecified; Z99.81 Dependence on supplemental oxygen; I10 Essential (primary) hypertension; J43.9 Emphysema, unspecified; I50.9 Heart failure, unspecified; R60.9 Edema, unspecified; I48.0 Paroxysmal atrial fibrillation; Z79.01 Long term (current) use of anticoagulants; K21.9 Gastro-esophageal reflux disease without esophagitis; E03.9 Hypothyroidism, unspecified; M19.90 Unspecified osteoarthritis, unspecified site; Z95.0 Presence of cardiac pacemaker; Z87.891 Personal history of nicotine dependence; Z98.61 Coronary angioplasty status; Z95.1 Presence of aortocoronary bypass graft; E11.9 Type 2 diabetes mellitus without complications; E78.00 Pure hypercholesterolemia, unspecified; E55.9 Vitamin D deficiency, unspecified; R82.998 Other abnormal findings in urine; Z79.899 Other long term (current) drug therapy; Z51.81 Encounter for therapeutic drug level monitoring; Z12.5 Encounter for screening for malignant neoplasm of prostate
CPT/HCPCS: 80048; 80053; 80061; 81003; 82150; 82306; 83036; 84450; 84460; 85025; 85027; 85610; 94640; 94761; 99220; 99285; G0103

== ENCOUNTER 2019-05-11 20:19 | Observation (INO) | payer MEDICARE, BC ==
[2019-05-11] MEDS ORDERED: METHYLPREDNISOLONE PF 125MG/VIAL IVP ONE (20:28)
--- NOTE | 2019-05-11 20:28 | Emergency Department Record ---
History of Present Illness - General Chief Complaint: Shortness of breath Stated Complaint: SOB Time Seen by Provider: 05/11/19 20:23 Source: Patient, EMS Mode of Arrival: EMS Limitations: No limitations - History of Present Illness Initial Comments: 78 yo male presents to ED for evaluation of difficulty in breathing symptoms with minimal exertion for the past 2-3 weeks. Patient reports a history of oxygen dependent COPD at his baseline, denies fevers, chills, or productive cough symptoms. Patient denies chest discomfort or lower extremity edema, reports a history of similar symptoms previously related to his COPD. Patient did ambulate to the EMS cart, dropped his oxygen saturation to 78% on his baseline 2 L NC. Complaint: Shortness of breath -: Week(s) Severity: Moderate Consistency: Intermittent Improves With: Bronchodilators, Rest Worsens With: Exertion Known History Of: COPD Associated Symptoms: Denies other symptoms - Related Data Home Oxygen Therapy: Yes Home Oxygen Amount: 2 Liters Home Medications Medication Instructions Recorded Confirmed Last Taken Torsemide 1 tab PO BID 05/11/19 05/11/19 Unknown Allergies Allergy/AdvReac Type Severity Reaction Status Date / Time Iodinated Contrast Media Allergy Severe SHORTNESS Verified 05/11/19 20:45 [Iodinated Contrast Media - OF BREATH IV Dye] isosorbide [From Imdur] Allergy Severe SHORTNESS Verified 05/11/19 20:45 OF BREATH Penicillins Allergy Severe HIVES Verified 05/11/19 20:45 cephalexin monohydrate Allergy Intermediate ITCHING Verified 05/11/19 20:45 [From Keflex] sulfamethoxazole Allergy Unknown PT UNSURE Verified 05/11/19 20:45 [From Bactrim] OF REACTION trimethoprim [From Bactrim] Allergy Unknown PT UNSURE Verified 05/11/19 20:45 OF REACTION lisinopril AdvReac cough Verified 05/11/19 20:45 Review of Systems Constitutional: Denies: Chills, Fever, Malaise, Night sweats Eyes: Denies: Eye discharge, Eye pain ENT: Denies: Congestion, Ear pain, Epistaxis Respiratory: Reports: Dyspnea, Wheezes. Denies: Cough Cardiovascular: Reports: Dyspnea on exertion. Denies: Chest pain Endocrine: Denies: Fatigue, Heat or cold intolerance Gastrointestinal: Denies: Abdominal pain, Nausea, Vomiting Genitourinary: Denies: Incontinence, Retention Musculoskeletal: Denies: Arthralgia, Back pain, Other Skin: Denies: Bruising, Change in color Neurological: Denies: Abnormal gait, Confusion, Headache, Seizure Psychiatric: Denies: Anxiety Hematological/Lymphatic: Denies: Anemia, Blood Clots Past Medical History - SOCIAL HISTORY Smoking Status: Former smoker Drug Use: None - RESPIRATORY Hx Respiratory Disorders: Yes Hx Bronchitis: Yes Hx COPD: Yes Hx Dyspnea: Yes Comment:: emphysema, oxygen 2L at all times - CARDIOVASCULAR Hx Cardio Disorders: Yes Hx Abnormal EKG: Yes Hx Cardiac Cath: Yes Hx Chest Pain: Yes Hx CHF: Yes Hx Edema: Yes Hx Heart Attack: No Hx Hypertension: Yes Hx Irregular Heartbeat: Yes (afib in the past) Hx Pacemaker/Defib: Yes (pacer only) Hx Coronary Artery Disease: Yes Hx Coronary Artery Bypass Graft: Yes (QCABG 1999) Hx Percutaneous Transluminal Coronary Angioplasty (PTCA): Yes - NEURO Hx Neuro Disorders: No - GI Hx GI Disorders: Yes Hx Reflux: Yes Hx Wt Loss/Wt Gain: Yes (water retention -10#) - Hx Genitourinary Disorders: Yes Hx Prostate Problems: Yes - ENDOCRINE Hx Endocrine Disorders: Yes Hx Diabetes: Yes (pre diabetic) Hx Thyroid Disease: Yes - MUSCULOSKELETAL Hx Musculoskeletal Disorders: Yes Hx Arthritis: Yes - PSYCH Hx Psych Problems: No - HEMATOLOGY/ONCOLOGY Hx Hematology/Oncology Disorders: Yes Hx Bruising: Yes (On coumadin) Family Medical History Hx Dementia: Mother Hx Diabetes: Mother Hx Heart Disease: Mother, Brother/Sister Hx HTN: Mother Hx Stroke: Father Physical Exam - General General Appearance: Alert, Oriented x3, Cooperative, Moderate distress Limitations: No limitations - Head Head exam: Atraumatic, Normocephalic, Normal inspection Head exam detail: negative: Abrasion, Contusion, Weaver's sign, General tenderness, Hematoma, Laceration - Eye Eye exam: Normal appearance. negative: Conjunctival injection, Periorbital swelling, Periorbital tenderness, Scleral icterus - ENT Ear exam: negative: Auricular hematoma, Auricular trauma Nasal Exam: negative: Active bleeding, Discharge, Dried blood, Foreign body Mouth exam: negative: Drooling, Laceration, Muffled voice, Tongue elevation - Neck Neck exam: Normal inspection. negative: Meningismus, Tenderness - Respiratory Respiratory exam: Decreased breath sounds, Other (Tachypnic on examination). negative: Rales, Respiratory distress, Rhonchi, Stridor, Wheezes - Cardiovascular Cardiovascular Exam: Regular rate, Normal rhythm, Normal heart sounds - GI/Abdominal GI/Abdominal exam: Soft. negative: Rebound, Rigid, Tenderness - Rectal Rectal exam: Deferred - exam: Deferred - Extremities Extremities exam: Normal inspection. negative: Pedal edema, Tenderness - Back Back exam: Denies: CVA tenderness (R), CVA tenderness (L) - Neurological Neurological exam: Alert, Normal gait, Oriented X3 - Psychiatric Psychiatric exam: Normal affect, Normal mood - Skin Skin exam: Normal color. negative: Abrasion Type of lesion: negative: abrasion Course - Reevaluation(s) Reevaluation #1: 05/11/19 20:31 EKG: Paced rhythm 75 No further analysis due to paced rhythm. Reevaluation #2: 05/11/19 21:06 Laboratory studies were reviewed and appear grossly unremarkable for an acute process except for the following: Hgb 11.1 (previous 10.5 02/28) CXR: Stable cardiac silhouette No acute infiltrate noted Small bilateral effusions Patient reports improvement while at rest and following solumedrol administration Will admit for probable COPD exacerbation. Reevaluation #3: 05/12/19 06:49 Case was discussed with Bonita Carrizales NP, will accept admission at this time. Medical Decision Making - Lab Data Result diagrams: 05/11/19 20:25 05/11/19 20:25 Disposition Disposition: Admit Clinical Impression: COPD exacerbation, Hypoxia Disposition: Still a Patient at [facility] Decision to Admit: Admit from ER Decision to Admit Date: 05/11/19 Decision to Admit Time: 21:09 Condition: (2) Stable Time of Disposition: 21:09 Quality - Quality Measures Quality Measures: N/A - Blood Pressure Screening Does Patient Have Any of the Following: Active Dx of HTN Blood Pressure Classification: Hypertensive Reading Systolic Measurement: 140 Diastolic Measurement: 92 Screening for High Blood Pressure: Patient Exclusion, Hx of HTN [G9744]
[2019-05-11 20:36] LABS: ABSOLUTE NEUTROPHIL COUNT 4.99; HEMATOCRIT 38.6 % (42.0-52.0); HEMOGLOBIN 11.1 gm/dl (14.0-18.0); MEAN CORPUSCULAR HEMOGLOBIN 26.7 pg (27-33); MEAN CORPUSCULAR HGB CONC 28.8 g/dl (32-36); MEAN PLATELET VOLUME 12.9 fl (7.4-10.4); PLATELET COUNT 166 K/uL (130-400); RED BLOOD COUNT 4.15 M/uL (4.40-5.70); RED CELL DISTRIBUTION WIDTH 18.2 % (11.5-14.5); WHITE BLOOD COUNT W/O DIFF 6.2 K/uL (4.2-12.2)
[2019-05-11 20:49] LABS: BLOOD UREA NITROGEN 24 mg/dL (8-23)
[2019-05-11 20:50] LABS: CREATININE 1.2 mg/dL (0.7-1.2); EST GLOMERULAR FILTRATION RATE > 60 mL/min; TOTAL PROTEIN 7.4 g/dL (6.6-8.7)
[2019-05-11 20:52] LABS: GLUCOSE,RANDOM 249 mg/dL (74-109)
--- NOTE | 2019-05-11 20:54 | RADIOLOGY REPORT ---
EXAMINATION: Single View Chest EXAM DATE: 05/11/2019 8:45 PM TECHNIQUE: Single view chest INDICATION: NATALIE COMPARISON: September 30, 2018 ENCOUNTER: Not applicable FINDINGS: Postoperative changes are redemonstrated including midline sternal wires and a left subclavian pacer device. The heart size, pulmonary vessels, and mediastinum are stable. Bilateral interstitial densities are redemonstrated. No focal airspace opacity. Small bilateral pleural effusions appear increased in the interval. IMPRESSION: 1. Stable heart size and bilateral interstitial densities. 2. No focal airspace opacity. 3. Small bilateral pleural effusions appear increased in the interval. Dictated by: Bryn Ma MD on 05/11/2019 8:51 PM. .
[2019-05-11 20:55] LABS: ALB/GLOB RATIO 1.2 (1.1-1.8); ALKALINE PHOSPHATASE 75 U/L (40-129); ALT/SGPT 16 U/L (<41); ANISOCYTOSIS 1+; AST/SGOT 22 U/L (10.0-50.0); HYPOCHROMIA 1+
[2019-05-11 21:30] LABS: INR 2.6; PROTHROMBIN TIME (PATIENT) 25.4 SECONDS (9.5-12.1)
[2019-05-11] MEDS ORDERED: ALBUTEROL SULFATE (0.083%) 2.5 MG/3 ML NEB INH PRN (21:54)
[2019-05-11] MEDS ORDERED: WARFARIN 5 MG TAB PO SCH (22:00)
[2019-05-11] MEDS ORDERED: LOSARTAN POTASSIUM 25 MG TABLET PO SCH (22:00)
[2019-05-11] MEDS ORDERED: FAMOTIDINE 20MG TABLET PO SCH (22:00)
[2019-05-11] MEDS ORDERED: TAMSULOSIN HCL 0.4 MG CAP.ER.24H PO SCH (22:00)
[2019-05-11] MEDS ORDERED: POTASSIUM 99 MG PO SCH (22:00)
[2019-05-11] MEDS ORDERED: BRIMONIDINE TARTRATE OPTH SCH (22:00)
[2019-05-11] MEDS ORDERED: GUAIFENESIN 600 MG MC SCH (23:00)
[2019-05-11] MEDS ORDERED: APAP PO PRN (23:00)
[2019-05-11] MEDS ORDERED: HYDROCODONE PO PRN (23:00)
[2019-05-11] MEDS: IPRATROPIUM/ALBUTEROL (0.5MG/3MG) NEB INH SCH (23:14)
[2019-05-11] MEDS ORDERED: OXYMETAZOLINE HCL PUFF PRN (23:30)
[2019-05-11] MEDS: TORSEMIDE 20 MG PO SCH (23:48)
[2019-05-12] MEDS ORDERED: 0.9 % SODIUM CHLORIDE 1000ML 1,000 ML IV PRN (05:14)
[2019-05-12] MEDS: IPRATROPIUM/ALBUTEROL (0.5MG/3MG) NEB INH SCH ×2 (06:15→09:58)
[2019-05-12] MEDS ORDERED: LEVOTHYROXINE SODIUM 25 MCG PO SCH (07:00)
[2019-05-12] MEDS ORDERED: LEVOTHYROXINE SODIUM 25 MCG TABLET PO SCH (07:00)
--- NOTE | 2019-05-12 09:55 | History & Physical ---
History of Present Illness - Date of Service Date of Service for History & Physical: 05/12/19 - History of Present Illness Admitting Diagnosis: COPD with hypoxia History of Present Illness: 78 yo male presents to ED for evaluation of difficulty in breathing symptoms with minimal exertion for the past 2-3 weeks. Patient reports a history of oxygen dependent COPD at his baseline, denies fevers, chills, or productive cough symptoms. Patient denies chest discomfort or lower extremity edema, reports a history of similar symptoms previously related to his COPD. Patient did ambulate to the EMS cart, dropped his oxygen saturation to 78% on his baseline 2 L NC. Upon further questioning patient is reporting a 1 month history of rapid heart beats, chest pressure, shortness of breath that occurs spontaneously and with activity, he states he will sometimes take a nitro but otherwise will just sit down and wait for the symptoms to pass. Symptoms last a nywhere from 15 minutes to 2 hours. Does have a complex cardiac history including a-fib on chronic anticoagulation, pacer placement, CABG, HF with diastolic dysfunction. He denies syncope, diaphoresis. He lives alone but does have good social support. ED work up was unremarkable for acute infectious process, CXR did reveal small bilateral pleural effusions with interval increase in which the patient reports has been history for him. Significant ED findings: WBC nl Hgb 11.1 INR 2.6 K 5.1 BUN/Cr 24/1.2 Troponin x 2 <0.010 BNP 485.5 CXR no acute process, interval increase of small bilateral pleural effusions EKG atrial paced, boarderline prolonged QT PCP: Dr. Leonardo Cardiology: Dr. Del Rio Pulmonology: [facility] PAST MEDICAL/SURGICAL HISTORY Past Surgical History Cardioversion-2013 & 08/2016, 02/26; QCABG 1999; Cholecystectomy; RTC Repair bilateral; PTCA; facet injection, rhizotomy, nerve block pacemaker;colonoscopies. PMH - Respiratory Hx Respiratory Disorders Yes Hx Asthma No Hx Bronchitis Yes Hx Chronic Obstructive Yes Pulmonary Disease (COPD) Hx Dyspnea Yes Hx of SOB Yes: now with aFib Comment: emphysema, oxygen 2L at all times PMH - Cardiovascular Hx Cardiovascular Disorders Yes Hx Abnormal EKG Yes Hx Cardiac Catheterization Yes Hx Chest Pain Yes Hx Congestive Heart Failure Yes Hx Edema Yes Hx Heart Attack No Hx Hypertension Yes Hx Irregular Heartbeat Yes: afib in the past Hx Pacemaker/Defibrillator Yes: pacer only Hx Coronary Artery Disease Yes Hx Coronary Artery Bypass Yes: QCABG 2000 Graft Hx Percutaneous Transluminal Yes Coronary Angioplasty (PTCA) Comment: Due to SOB and back pain PMH - Neuro Hx Neurological Disorders No PMH - GI Hx Gastrointestinal Disorders Yes Hx Gastroesophageal Reflux Yes Hx Weight Loss/Weight Gain Yes: water retention -10# PMH - Hx Genitourinary Disorders Yes Hx Prostate Problems Yes PMH - Endocrine Hx Endocrine Disorders Yes Hx Diabetes Yes: pre diabetic Hx Thyroid Disease Yes Hx of NIDDM Yes Comment: pt doesn't check acuuchecks PMH - Musculoskeletal Hx Musculoskeletal Disorders Yes Hx Arthritis Yes PMH - Psych Hx Psychiatric Problems No PMH - Hematology/Oncology Hx Hematology/Oncology Yes Disorders Hx Bruising Yes: On coumadin Laboratory Results WBC 6.2 K/uL (4.2-12.2) 05/11/19 20:25 RBC 4.15 M/uL (4.40-5.70) L 05/11/19 20:25 Hgb 11.1 gm/dl (14.0-18.0) L 05/11/19 20:25 Hct 38.6 % (42.0-52.0) L 05/11/19 20:25 MCV 93.0 fl (81-97) 05/11/19 20:25 MCH 26.7 pg (27-33) L 05/11/19 20:25 MCHC 28.8 g/dl (32-36) L 05/11/19 20:25 RDW 18.2 % (11.5-14.5) H 05/11/19 20:25 Plt Count 166 K/uL (130-400) 05/11/19 20:25 MPV 12.9 fl (7.4-10.4) H 05/11/19 20:25 Neutrophils % 78.0 % (47-80) 05/11/19 20:25 Eosinophils % Not Reportable 05/11/19 20:25 Basophils % Not Reportable 05/11/19 20:25 Absolute Neutrophils 4.99 05/11/19 20:25 Lymphocytes 10.0 % (16-45) L 05/11/19 20:25 Monocytes 10.0 % (0-9) H 05/11/19 20:25 Basophils 1.0 % (0-6) 05/11/19 20:25 Hypochromasia 1+ 05/11/19 20:25 Anisocytosis 1+ 05/11/19 20:25 Eosinophil Count 1.0 % (0-6) 05/11/19 20:25 PT 25.4 SECONDS (9.5-12.1) H 05/11/19 20:25 INR 2.6 05/11/19 20:25 Sodium 141 mmol/L (136-145) 05/11/19 20:25 Potassium 5.1 mmol/L (3.4-4.5) H 05/11/19 20:25 Chloride 105 mmol/L (98-107) 05/11/19 20:25 Carbon Dioxide 24.0 mmol/L (22-29) 05/11/19 20:25 Anion Gap 12.0 (7-16) 05/11/19 20:25 BUN 24 mg/dL (8-23) H 05/11/19 20:25 Creatinine 1.2 mg/dL (0.7-1.2) 05/11/19 20:25 Estimated GFR > 60 mL/min 05/11/19 20:25 Random Glucose 249 mg/dL (74-109) H 05/11/19 20:25 Calcium 9.4 mg/dL (8.8-10.2) 05/11/19 20:25 Total Bilirubin 0.70 mg/dL (0.2-1.0) 05/11/19 20:25 AST 22 U/L (10.0-50.0) 05/11/19 20:25 ALT 16 U/L (<41) 05/11/19 20:25 Alkaline Phosphatase 75 U/L (40-129) 05/11/19 20: Troponin T < 0.010 ng/mL (0-0.010) 05/12/19 09:09 NT-Pro-B Natriuret Pep 485.50 pg/mL (<450) H 05/11/19 20:25 Total Protein 7.4 g/dL (6.6-8.7) 05/11/19 20:25 Albumin 4.0 g/dL (4.0-5.0) 05/11/19 20:25 Globulin 3.4 gm/dL (1.4-4.8) 05/11/19 20:25 Albumin/Globulin Ratio 1.2 (1.1-1.8) 05/11/19 20:25 Vital Signs - Last 24 Hrs Temp Pulse Pulse Resp BP BP BP 05/12/19 09:00 84 20 05/12/19 08:00 97.9 F 84 20 121/62 05/12/19 06:15 83 24 05/12/19 00:00 74 22 05/11/19 23:14 75 24 05/11/19 23:13 75 24 05/11/19 22:06 98.3 F 75 24 152/81 05/11/19 21:18 75 24 113/58 05/11/19 20:48 75 22 134/61 05/11/19 20:21 97.9 F 74 28 H 140/92 Pulse Ox 05/12/19 09:00 05/12/19 08:00 94 L 05/12/19 06:15 94 L 05/12/19 00:00 05/11/19 23:14 94 L 05/11/19 23:13 05/11/19 22:06 95 05/11/19 21:18 94 L 05/11/19 20:48 96 05/11/19 20:21 93 L 05/12/2019- Sitting in bed comfortably, appears chronically ill. Reports breathing has much improved since arrival but is still quite short of breath with any activity. Telemetry events reviewed, he did have episodes of wide complex tachycardia approx 0530 and 0630 this am with associated chest pressure. At approximately 0815 had another episode of sustained wide complex tachycardia witness with myself and staff in room. Patient in no obvious distress, did report mild chest pressure directly after episode and spontaneous conversion to NSR. Has remained hemodynamically stable since admission and during tachycardia events. Case discussed with Dr Del Rio, and with ongoing complex cardiac issues, new onset wide complex tachycardia, and COPD [place] [facility] [place] and cardiology consult. Case was discussed with hospitalist Dr Godoy and accepts for admission. Travel Screening - Travel/Exposure Within Last 30 Days Have you traveled within the last 30 days?: No - Travel/Exposure Within Last Year Have you traveled outside the [place] in the last year?: No - Additonal Travel Details Have you been exposed to anyone with a communicable illness?: No - Travel Symptoms Symptom Screening: None Review of Systems Constitutional: Denies: Chills, Fever, Malaise, Night sweats Eyes: Denies: Eye discharge, Eye pain ENT: Denies: Congestion, Ear pain, Epistaxis Respiratory: Reports: Dyspnea, Wheezes. Denies: Cough Cardiovascular: Reports: Dyspnea on exertion. Denies: Chest pain Endocrine: Denies: Fatigue, Heat or cold intolerance Gastrointestinal: Denies: Abdominal pain, Nausea, Vomiting Genitourinary: Denies: Incontinence, Retention Musculoskeletal: Denies: Arthralgia, Back pain, Other Skin: Denies: Bruising, Change in color Neurological: Denies: Abnormal gait, Confusion, Headache, Seizure Psychiatric: Denies: Anxiety Hematological/Lymphatic: Denies: Anemia, Blood Clots Past Medical History - SOCIAL HISTORY Smoking Status: Former smoker Drug Use: None - RESPIRATORY Hx Respiratory Disorders: Yes Hx Bronchitis: Yes Hx COPD: Yes Hx Dyspnea: Yes Comment:: emphysema, oxygen 2L at all times - CARDIOVASCULAR Hx Cardio Disorders: Yes Hx Abnormal EKG: Yes Hx Cardiac Cath: Yes Hx Chest Pain: Yes Hx CHF: Yes Hx Edema: Yes Hx Heart Attack: No Hx Hypertension: Yes Hx Irregular Heartbeat: Yes (afib in the past) Hx Pacemaker/Defib: Yes (pacer only) Hx Coronary Artery Disease: Yes Hx Coronary Artery Bypass Graft: Yes (QCABG 1999) Hx Percutaneous Transluminal Coronary Angioplasty (PTCA): Yes - NEURO Hx Neuro Disorders: No - GI Hx GI Disorders: Yes Hx Reflux: Yes Hx Wt Loss/Wt Gain: Yes (water retention -10#) - Hx Genitourinary Disorders: Yes Hx Prostate Problems: Yes - ENDOCRINE Hx Endocrine Disorders: Yes Hx Diabetes: Yes (pre diabetic) Hx Thyroid Disease: Yes - MUSCULOSKELETAL Hx Musculoskeletal Disorders: Yes Hx Arthritis: Yes - PSYCH Hx Psych Problems: No - HEMATOLOGY/ONCOLOGY Hx Hematology/Oncology Disorders: Yes Hx Bruising: Yes (On coumadin) Family Medical History Hx Dementia: Mother Hx Diabetes: Mother Hx Heart Disease: Mother, Brother/Sister Hx HTN: Mother Hx Stroke: Father H&P Meds/Allergies - Allergies Allergies: Allergies Allergy/AdvReac Type Severity Reaction Status Date / Time Iodinated Contrast Media Allergy Severe SHORTNESS Verified 05/11/19 20:45 [Iodinated Contrast Media - OF BREATH IV Dye] isosorbide [From Imdur] Allergy Severe SHORTNESS Verified 05/11/19 20:45 OF BREATH Penicillins Allergy Severe HIVES Verified 05/11/19 20:45 cephalexin monohydrate Allergy Intermediate ITCHING Verified 05/11/19 20:45 [From Keflex] sulfamethoxazole Allergy Unknown PT UNSURE Verified 05/11/19 20:45 [From Bactrim] OF REACTION trimethoprim [From Bactrim] Allergy Unknown PT UNSURE Verified 05/11/19 20:45 OF REACTION lisinopril AdvReac cough Verified 05/11/19 20:45 - Home Medications Home Medications Medication Instructions Recorded Confirmed Last Taken Torsemide 1 tab PO BID 05/11/19 05/11/19 Unknown - Active Medications Active Medications: Current Medications Albuterol Sulfate (Albuterol Sulfate) 2.5 mg INH RESP.Q2H PRN PRN Reason: DIFFICULTY IN BREATHING Albuterol/Ipratropium (Duoneb) 3 ml INH RESP.Q4H.[facility] Last Admin: 05/12/19 06:15 Dose: 3 ml Documented by: Sodium Chloride () 1,000 mls @ 100 mls/hr IV .Q10H PRN PRN Reason: LARGE VOLUME IV Methylprednisolone Sodium Succinate (Solu-Medrol) 125 mg IVP DAILY [facility] Patient Own Med:( Fenofibrate Nanocrystallized [ Tricor] 160 Mg) 1 each PO QAM [facility] Patient Own Med: (Finasteride 5 Mg) 1 each PO QHS [facility] Patient Own Med: Hydrocodone/Apap 5/325mg Tablet 1 each PO Q6H PRN PRN Reason: MODERATE PAIN Patient Own Med: Oxymetazoline Hcl 15 Ml Btl Nasal 1 each PUFF BID PRN PRN Reason: NASAL STUFFINESS Patient Own Med: Torsemide 20 Mg Tablet 1 each PO BID [facility] Last Admin: 05/11/19 23:48 Dose: Not Given Documented by: Patient Own Med: Guaifenesin 600mg Tablet 2 each PO BID [facility] Patient Own Med: Simvastatin 20 Mg Tablet 2 each PO QHS [facility] Patient Own Med: Tamsulosin Hcl 0.4 Mg Cap.Er.24h 1 each PO QHS [facility] Patient Own Med: Metoprolol Succ 25 Mg Tab.Er 1 each PO QAM [facility] Patient Own Med: Metformin 500 Mg Tablet 1 each PO QAM [facility] Patient Own Med: Losartan Potassium 25 Mg Tablet 0.5 each PO QAM [facility] Patient Own Med: Levothyroxine Sodium 25 Mcg Tablet 1 each PO DAILYTHY [facility] Last Admin: 05/12/19 06:12 Dose: 1 each Documented by: Patient Own Med: Famotidine 20mg Tablet 1 each PO QHS [facility] Patient Own Med: Aspirin 81 Mg Chewable Tablet 1 each PO DAILY [facility] Patient Own Med: Amiodarone Hcl 200 Mg Tablet 1 each PO DAILY [facility] Patient Own Med: Brimonidine Opth 0.2 % 1 each OPTH BID [facility] Patient Own Med:[ (Potassium] 99 Mg)) 1 each PO BID [facility] Patient Own Med: (Warfarin 5 Mg Tab) 1 each PO WEEKLY [facility] Warfarin Sodium (Coumadin) 2.5 mg PO ASDIR [facility] Physical Exam - Vital Signs Vital Signs: Vital Signs - Last 24 Hrs Temp Pulse Pulse Resp BP BP BP 05/12/19 08:00 97.9 F 84 20 121/62 05/12/19 06:15 83 24 05/12/19 00:00 74 22 05/11/19 23:14 75 24 05/11/19 23:13 75 24 05/11/19 22:06 98.3 F 75 24 152/81 05/11/19 21:18 75 24 113/58 05/11/19 20:48 75 22 134/61 05/11/19 20:21 97.9 F 74 28 H 140/92 Pulse Ox 05/12/19 08:00 94 L 05/12/19 06:15 94 L 05/12/19 00:00 05/11/19 23:14 94 L 05/11/19 23:13 05/11/19 22:06 95 05/11/19 21:18 94 L 05/11/19 20:48 96 05/11/19 20:21 93 L - General General Appearance: Alert, Oriented x3, Cooperative Limitations: No limitations - Head Head exam: Atraumatic, Normocephalic, Normal inspection Head exam detail: negative: Abrasion, Contusion, Weaver's sign, General tenderness, Hematoma, Laceration - Eye Eye exam: Normal appearance. negative: Conjunctival injection, Periorbital swelling, Periorbital tenderness, Scleral icterus - ENT ENT exam: Mucous membranes moist Ear exam: negative: Auricular hematoma, Auricular trauma Nasal Exam: negative: Active bleeding, Discharge, Dried blood, Foreign body Mouth exam: negative: Drooling, Laceration, Muffled voice, Tongue elevation - Neck Neck exam: Normal inspection. negative: Meningismus, Tenderness - Respiratory Respiratory exam: Decreased breath sounds, Wheezes (scattered fine expiratory wheezes upper lobes bilat). negative: Rales, Respiratory distress, Rhonchi, Stridor - Cardiovascular Cardiovascular Exam: Regular rate, Normal rhythm, Normal heart sounds Peripheral Pulses: 3+: Radial (R), Radial (L) - GI/Abdominal GI/Abdominal exam: Soft. negative: Rebound, Rigid, Tenderness - Rectal Rectal exam: Deferred - exam: Deferred - Extremities Extremities exam: Pedal edema (trace pedal bilat), Other (hyperketatotic and vascular staining to BLE, scattered large silvery scales BLE, does have hx psoriasis). negative: Tenderness - Back Back exam: Denies: CVA tenderness (R), CVA tenderness (L) - Neurological Neurological exam: Alert, Normal gait, Oriented X3 - Psychiatric Psychiatric exam: Normal affect, Normal mood - Skin Skin exam: Normal color. negative: Abrasion Type of lesion: negative: abrasion Results - Labs Result Diagrams: 05/11/19 20:25 05/11/19 20:25 Labs Last 24 Hours: Laboratory Results - last 24 hr 05/11/19 05/11/19 05/11/19 20:25 20:25 20:25 WBC 6.2 RBC 4.15 L Hgb 11.1 L Hct 38.6 L MCV 93.0 MCH 26.7 L MCHC 28.8 L RDW 18.2 H Plt Count 166 MPV 12.9 H Neutrophils % 78.0 Eosinophils % Not Reportable Basophils % Not Reportable Absolute Neutrophils 4.99 Lymphocytes 10.0 L Monocytes 10.0 H Basophils 1.0 Hypochromasia 1+ Anisocytosis 1+ Eosinophil Count 1.0 PT INR Sodium 141 Potassium 5.1 H Chloride 105 Carbon Dioxide 24.0 Anion Gap 12.0 BUN 24 H Creatinine 1.2 Estimated GFR > 60 Random Glucose 249 H Calcium 9.4 Total Bilirubin 0.70 AST 22 ALT 16 Alkaline Phosphatase 75 Troponin T < 0.010 NT-Pro-B Natriuret Pep 485.50 H Total Protein 7.4 Albumin 4.0 Globulin 3.4 Albumin/Globulin Ratio 1.2 05/11/19 05/12/19 20:25 09:09 WBC RBC Hgb Hct MCV MCH MCHC RDW Plt Count MPV Neutrophils % Eosinophils % Basophils % Absolute Neutrophils Lymphocytes Monocytes Basophils Hypochromasia Anisocytosis Eosinophil Count PT 25.4 H INR 2.6 Sodium Potassium Chloride Carbon Dioxide Anion Gap BUN Creatinine Estimated GFR Random Glucose Calcium Total Bilirubin AST ALT Alkaline Phosphatase Troponin T < 0.010 NT-Pro-B Natriuret Pep Total Protein Albumin Globulin Albumin/Globulin Ratio - Imaging and Cardiology Chest x-ray Status: Report reviewed VTE H&P Assessment - Risk for VTE Risk for VTE: Yes Risk Level: Moderate Risk Assessment Date: 05/12/19 Risk Assessment Time: 10:08 VTE Orders Placed or Will Be Placed: Yes Plan - Detailed Diagnosis and Plan (1) Wide-complex tachycardia Current Visit: Yes Status: Acute Base Code: I47.2 - VENTRICULAR TACHYCARDIA Comment: 05/12/19 - Complex cardiac history, symptomatic with chest pressure, fluttering, short of breath for about a month - Discussed with Dr Del Rio, [place] [facility] [place] - Hemodynamically stable - Chronic anticoagulation with Coumadin, INR therapeutic (2) COPD exacerbation Current Visit: Yes Status: Acute Base Code: J44.1 - CHRONIC OBSTRUCTIVE PULMONARY DISEASE W (ACUTE) EXACERBATION Comment: 05/12/2019 - O2 dependent - IV Solumdrol 125mg QD - CXR without acute process, interval increase of previous pleural effusions - BNP 485 - Troponin neg x 2 - Duoneb Q4hr [place] (3) Hypoxia Current Visit: Yes Status: Acute Base Code: R09.02 - HYPOXEMIA (4) Anticoagulated on Coumadin Current Visit: No Status: Acute Base Code: Z79.01 - CELL TENDER (CURRENT) USE OF ANTICOAGULANTS Comment: 05/12/2019 - Hx chronic a-fib, atrial paced. - INR therapeutic (5) Chronic a-fib Current Visit: No Status: Acute Base Code: I48.20 - CHRONIC ATRIAL FIBRILLAT ION, UNSPECIFIED Comment: 05/12/2019 - Telemetry - Anticoagulation - ARB, BB (6) DVT prophylaxis Current Visit: No Status: Acute Base Code: [id number] - Comment: 05/12/2019 - Coumadin, INR therapeutic (7) Full code status Current Visit: No Status: Acute Base Code: Z78.9 - OTHER SPECIFIED HEALTH STATUS
[2019-05-12] MEDS ORDERED: AMIODARONE HCL 200 MG PO SCH (10:00)
[2019-05-12] MEDS ORDERED: METFORMIN 500 MG TABLET PO SCH (10:00)
[2019-05-12] MEDS ORDERED: AMIODARONE HCL 200 MG TABLET PO SCH (10:00)
[2019-05-12] MEDS ORDERED: GUAIFENESIN 600 MG PO SCH (10:00)
[2019-05-12] MEDS ORDERED: FENOFIBRATE NANOCRYSTALLIZED 160 MG PO SCH (10:00)
[2019-05-12] MEDS ORDERED: BRIMONIDINE OPTH OPTH SCH (10:00)
[2019-05-12] MEDS ORDERED: POTASSIUM 99 MG PO SCH (10:00)
[2019-05-12] MEDS ORDERED: ASPIRIN 81 MG PO SCH (10:00)
[2019-05-12] MEDS ORDERED: METOPROLOL SUCC 25 MG TAB.ER PO SCH (10:00)
[2019-05-12] MEDS ORDERED: METFORMIN 500 MG PO SCH (10:00)
[2019-05-12] MEDS ORDERED: WARFARIN 2.5 MG TAB PO SCH (10:00)
[2019-05-12] MEDS ORDERED: METOPROLOL SUCC 25 MG PO SCH (10:00)
[2019-05-12] MEDS ORDERED: ASPIRIN 81 MG CHEWABLE TABLET PO SCH (10:00)
[2019-05-12] MEDS ORDERED: METHYLPREDNISOLONE PF 125MG/VIAL IVP SCH (10:00)
[2019-05-12] MEDS ORDERED: LOSARTAN POTASSIUM 25 MG PO SCH ×2 (10:00→22:00)
--- NOTE | 2019-05-12 10:19 | Discharge Summary ---
Providers Discharge Summary Date: 05/12/19 Date of admission: 05/11/19 21:46 Expected Date of Discharge: 05/12/19 Attending physician: ALYSSA BANG Primary care physician: Christiano Leonardo Physical Exam - Vital Signs Vital Signs: Vital Signs - Last 24 Hrs Temp Pulse Pulse Resp BP BP BP 05/12/19 10:01 82 18 05/12/19 09:00 84 20 05/12/19 08:00 97.9 F 84 20 121/62 05/12/19 06:15 83 24 05/12/19 00:00 74 22 05/11/19 23:14 75 24 05/11/19 23:13 75 24 05/11/19 22:06 98.3 F 75 24 152/81 05/11/19 21:18 75 24 113/58 05/11/19 20:48 75 22 134/61 05/11/19 20:21 97.9 F 74 28 H 140/92 Pulse Ox 05/12/19 10:01 98 05/12/19 09:00 05/12/19 08:00 94 L 05/12/19 06:15 94 L 05/12/19 00:00 05/11/19 23:14 94 L 05/11/19 23:13 05/11/19 22:06 95 05/11/19 21:18 94 L 05/11/19 20:48 96 05/11/19 20:21 93 L - General General Appearance: Alert, Oriented x3, Cooperative Limitations: No limitations - Head Head exam: Atraumatic, Normocephalic, Normal inspection Head exam detail: negative: Abrasion, Contusion, Weaver's sign, General tenderness, Hematoma, Laceration - Eye Eye exam: Normal appearance. negative: Conjunctival injection, Periorbital swelling, Periorbital tenderness, Scleral icterus - ENT ENT exam: Mucous membranes moist Ear exam: negative: Auricular hematoma, Auricular trauma Nasal Exam: negative: Active bleeding, Discharge, Dried blood, Foreign body Mouth exam: negative: Drooling, Laceration, Muffled voice, Tongue elevation - Neck Neck exam: Normal inspection. negative: Meningismus, Tenderness - Respiratory Respiratory exam: Decreased breath sounds, Wheezes (scattered fine expiratory wheezes upper lobes bilat). negative: Rales, Respiratory distress, Rhonchi, Stridor - Cardiovascular Cardiovascular Exam: Regular rate, Normal rhythm, Normal heart sounds Peripheral Pulses: 3+: Radial (R), Radial (L) - GI/Abdominal GI/Abdominal exam: Soft. negative: Rebound, Rigid, Tenderness - Rectal Rectal exam: Deferred - exam: Deferred - Extremities Extremities exam: Pedal edema (trace pedal bilat), Other (hyperketatotic and vascular staining to BLE, scattered large silvery scales BLE, does have hx psoriasis). negative: Tenderness - Back Back exam: Denies: CVA tenderness (R), CVA tenderness (L) - Neurological Neurological exam: Alert, Normal gait, Oriented X3 - Psychiatric Psychiatric exam: Normal affect, Normal mood - Skin Skin exam: Normal color. negative: Abrasion Type of lesion: negative: abrasion Hospitalization - Hospitalization Admission Diagnosis: COPD with hypoxia - Problem List/Discharge Diagnosis (1) Wide-complex tachycardia Current Visit: Yes Status: Acute Base Code: I47.2 - VENTRICULAR TACHYCARDIA Comment: 05/12/19 - Complex cardiac history, symptomatic with chest pressure, fluttering, short of breath for about a month - Discussed with Dr Del Rio, transferring to [facility] [place] - Hemodynamically stable - Chronic anticoagulation with Coumadin, INR therapeutic (2) COPD exacerbation Current Visit: Yes Status: Acute Base Code: J44.1 - CHRONIC OBSTRUCTIVE PULMONARY DISEASE W (ACUTE) EXACERBATION Comment: 05/12/2019 - O2 dependent - IV Solumdrol 125mg QD - CXR without acute process, interval increase of previous pleural effusions - BNP 485 - Troponin neg x 2 - Duoneb Q4hr WA (3) Hypoxia Current Visit: Yes Status: Acute Base Code: R09.02 - HYPOXEMIA (4) Anticoagulated on Coumadin Current Visit: No Status: Acute Base Code: Z79.01 - SEAT COVER CUTTER (CURRENT) USE OF ANTICOAGULANTS Comment: 05/12/2019 - Hx chronic a-fib, atrial paced. - INR therapeutic (5) Chronic a-fib Current Visit: No Status: Acute Base Code: I48.20 - CHRONIC ATRIAL FIBRILLATION, UNSPECIFIED Comment: 05/12/2019 - Telemetry - Anticoagulation - ARB, BB, Amiodarone (6) DVT prophylaxis Current Visit: No Status: Acute Base Code: ROL0918 - Comment: 05/12/2019 - Coumadin, INR therapeutic (7) Full code status Current Visit: No Status: Acute Base Code: Z78.9 - OTHER SPECIFIED HEALTH STATUS - Hospitalization Course Disposition: Acute Care Hospital Transfer Hospital Course: 78 yo male presents to ED for evaluation of difficulty in breathing symptoms with minimal exertion for the past 2-3 weeks. Patient reports a history of oxygen dependent COPD at his baseline, denies fevers, chills, or productive cough symptoms. Patient denies chest discomfort or lower extremity edema, reports a history of similar symptoms previously related to his COPD. Patient did ambulate to the EMS cart, dropped his oxygen saturation to 78% on his baseline 2 L NC. Upon further questioning patient is reporting a 1 month history of rapid heart beats, chest pressure, shortness of breath that occurs spontaneously and with activity, he states he will sometimes take a nitro but otherwise will just sit down and wait for the symptoms to pass. Symptoms last anywhere from 15 minutes to 2 hours. Does have a complex cardiac history including a-fib on chronic anticoagulation, pacer placement, CABG, HF with diastolic dysfunction. He denies syncope, diaphoresis. He lives alone but does have good social support. ED work up was unremarkable for acute infectious process, CXR did reveal small bilateral pleural effusions with interval increase in which the patient reports has been history for him. Significant ED findings: WBC nl Hgb 11.1 INR 2.6 K 5.1 BUN/Cr 24/1.2 Troponin x 2 <0.010 BNP 485.5 CXR no acute process, interval increase of small bilateral pleural effusions EKG atrial paced, boarderline prolonged QT PCP: Dr. Leonardo Cardiology: Dr. Del Rio Pulmonology: MGL PAST MEDICAL/SURGICAL HISTORY Past Surgical History Cardioversion-2013 & 08/2016, 02/26; QCABG 1999; Cholecystectomy; RTC Repair bilateral; PTCA; facet injection, rhizotomy, nerve block pacemaker;colonoscopies. PMH - Respiratory Hx Respiratory Disorders Yes Hx Asthma No Hx Bronchitis Yes Hx Chronic Obstructive Yes Pulmonary Disease (COPD) Hx Dyspnea Yes Hx of SOB Yes: now with aFib Comment: emphysema, oxygen 2L at all times PMH - Cardiovascular Hx Cardiovascular Disorders Yes Hx Abnormal EKG Yes Hx Cardiac Catheterization Yes Hx Chest Pain Yes Hx Congestive Heart Failure Yes Hx Edema Yes Hx Heart Attack No Hx Hypertension Yes Hx Irregular Heartbeat Yes: afib in the past Hx Pacemaker/Defibrillator Yes: pacer only Hx Coronary Artery Disease Yes Hx Coronary Artery Bypass Yes: QCABG 2000 Graft Hx Percutaneous Transluminal Yes Coronary Angioplasty (PTCA) Comment: Due to SOB and back pain PMH - Neuro Hx Neurological Disorders No PMH - GI Hx Gastrointestinal Disorders Yes Hx Gastroesophageal Reflux Yes Hx Weight Loss/Weight Gain Yes: water retention -10# PMH - Hx Genitourinary Disorders Yes Hx Prostate Problems Yes PMH - Endocrine Hx Endocrine Disorders Yes Hx Diabetes Yes: pre diabetic Hx Thyroid Disease Yes Hx of NIDDM Yes Comment: pt doesn't check acuuchecks PMH - Musculoskeletal Hx Musculoskeletal Disorders Yes Hx Arthritis Yes PMH - Psych Hx Psychiatric Problems No PMH - Hematology/Oncology Hx Hematology/Oncology Yes Disorders Hx Bruising Yes: On coumadin Laboratory Results WBC 6.2 K/uL (4.2-12.2) 05/11/19 20: RBC 4.15 M/uL (4.40-5.70) L 05/11/19 20:25 Hgb 11.1 gm/dl (14.0-18.0) L 05/11/19 20:25 Hct 38.6 % (42.0-52.0) L 05/11/19 20:25 MCV 93.0 fl (81-97) 05/11/19 20:25 MCH 26.7 pg (27-33) L 05/11/19 20:25 MCHC 28.8 g/dl (32-36) L 05/11/19 20:25 RDW 18.2 % (11.5-14.5) H 05/11/19 20:25 Plt Count 166 K/uL (130-400) 05/11/19 20:25 MPV 12.9 fl (7.4-10.4) H 05/11/19 20:25 Neutrophils % 78.0 % (47-80) 05/11/19 20:25 Eosinophils % Not Reportable 05/11/19 20:25 Basophils % Not Reportable 05/11/19 20:25 Absolute Neutrophils 4.99 05/11/19 20:25 Lymphocytes 10.0 % (16-45) L 05/11/19 20:25 Monocytes 10.0 % (0-9) H 05/11/19 20:25 Basophils 1.0 % (0-6) 05/11/19 20:25 Hypochromasia 1+ 05/11/19 20:25 Anisocytosis 1+ 05/11/19 20: Eosinophil Count 1.0 % (0-6) 05/11/19 20: PT 25.4 SECONDS (9.5-12.1) H 05/11/19 20:25 INR 2.6 05/11/19 20:25 Sodium 141 mmol/L (136-145) 05/11/19 20:25 Potassium 5.1 mmol/L (3.4-4.5) H 05/11/19 20:25 Chloride 105 mmol/L (98-107) 05/11/19 20:25 Carbon Dioxide 24.0 mmol/L (22-29) 05/11/19 20: Anion Gap 12.0 (7-16) 05/11/19 20: BUN 24 mg/dL (8-23) H 05/11/19 20:25 Creatinine 1.2 mg/dL (0.7-1.2) 05/11/19 20:25 Estimated GFR > 60 mL/min 05/11/19 20:25 Random Glucose 249 mg/dL (74-109) H 05/11/19 20:25 Calcium 9.4 mg/dL (8.8-10.2) 05/11/19 20:25 Total Bilirubin 0.70 mg/dL (0.2-1.0) 05/11/19 20: AST 22 U/L (10.0-50.0) 05/11/19 20: ALT 16 U/L (<41) 05/11/19 20:25 Alkaline Phosphatase 75 U/L (40-129) 05/11/19 20:25 Troponin T < 0.010 ng/mL (0-0.010) 05/12/19 09:09 NT-Pro-B Natriuret Pep 485.50 pg/mL (<450) H 05/11/19 20:25 Total Protein 7.4 g/dL (6.6-8.7) 05/11/19 20: Albumin 4.0 g/dL (4.0-5.0) 05/11/19 20:25 Globulin 3.4 gm/dL (1.4-4.8) 05/11/19 20:25 Albumin/Globulin Ratio 1.2 (1.1-1.8) 05/11/19 20:25 Vital Signs - Last 24 Hrs Temp Pulse Pulse Resp BP BP BP 05/12/19 09:00 84 20 05/12/19 08:00 97.9 F 84 20 121/62 05/12/19 06:15 83 24 05/12/19 00:00 74 22 05/11/19 23:14 75 24 05/11/19 23:13 75 24 05/11/19 22:06 98.3 F 75 24 152/81 05/11/19 21:18 75 24 113/58 05/11/19 20:48 75 22 134/61 05/11/19 20:21 97.9 F 74 28 H 140/92 Pulse Ox 05/12/19 09:00 05/12/19 08:00 94 L 05/12/19 06:15 94 L 05/12/19 00:00 05/11/19 23:14 94 L 05/11/19 23:13 05/11/19 22:06 95 05/11/19 21:18 94 L 05/11/19 20:48 96 05/11/19 20:21 93 L 05/12/2019- Sitting in bed comfortably, appears chronically ill. Reports breathing has much improved since arrival but is still quite short of breath with any activity. Telemetry events reviewed, he did have episodes of wide complex tachycardia approx 0530 and 0630 this am with associated chest pressure. At approximately 0815 had another episode of sustained wide complex tachycardia witness with myself and staff in room. Patient in no obvious distress, did report mild chest pressure directly after episode and spontaneous conversion to NSR. Has remained hemodynamically stable since admission and during tachycardia events. Case discussed with Dr Del Rio, and with ongoing complex cardiac issues, new onset wide complex tachycardia, and COPD will transfer to [facility] [place] further treatment and cardiology consult. Case was discussed with hospitalist Dr Godoy and accepts for admission. Procedures: Imaging and X-Rays 05/11/19 20:28 CHEST 1 VIEW [RAD] Stat Cardiology Procedures 05/11/19 20:28 EKG NOW 05/11/19 21:54 Reversing [place] .Continuous Abnormal Labs: Abnormal Lab Results 05/11/19 05/11/19 05/11/19 Range/Units 20:25 20:25 20:25 RBC 4.15 L (4.40-5.70) M/uL Hgb 11.1 L (14.0-18.0) gm/dl Hct 38.6 L (42.0-52.0) % MCH 26.7 L (27-33) pg MCHC 28.8 L (32-36) g/dl RDW 18.2 H (11.5-14.5) % MPV 12.9 H (7.4-10.4) fl Lymphocytes 10.0 L (16-45) % Monocytes 10.0 H (0-9) % PT (9.5-12.1) SECONDS Potassium 5.1 H (3.4-4.5) mmol/L BUN 24 H (8-23) mg/dL Random Glucose 249 H (74-109) mg/dL NT-Pro-B Natriuret Pep 485.50 H (<450) pg/mL 05/11/19 Range/Units 20:25 RBC (4.40-5.70) M/uL Hgb (14.0-18.0) gm/dl Hct (42.0-52.0) % MCH (27-33) pg MCHC (32-36) g/dl RDW (11.5-14.5) % MPV (7.4-10.4) fl Lymphocytes (16-45) % Monocytes (0-9) % PT 25.4 H (9.5-12.1) SECONDS Potassium (3.4-4.5) mmol/L BUN (8-23) mg/dL Random Glucose (74-109) mg/dL NT-Pro-B Natriuret Pep (<450) pg/mL Condition at Discharge: (2) Stable Discharge Medications - Discharge Medications Home Medications: Ambulatory Orders Aspirin Chewable 81 mg PO QAM 04/19/14 [Last Taken 02/06/19] Guaifenesin [Mucinex] 1,200 mg PO BID 04/19/14 [Last Taken 02/06/19] Ipratropium/Albuterol [Duoneb] 3 ml IH BID PRN 04/19/14 [Last Taken 02/06/19] Oxymetazoline HCl [Afrin] 15 ml NS ASDIR PRN 04/19/14 [Last Taken 02/06/19] Simvastatin [Zocor] 40 mg PO QHS 04/19/14 [Last Taken 1 Day Ago ~02/06/19] Tamsulosin HCl [Flomax] 0.4 mg PO QHS 04/19/14 [Last Taken 1 Day Ago ~02/06/19] Warfarin Sodium [Coumadin] 5 mg PO QHS 04/19/14 [Last Taken 1 Day Ago ~02/06/19] Famotidine [Pepcid] 20 mg PO QHS tab 11/19/15 [Last Taken 02/06/19] Finasteride 5 mg PO QHS tab 11/19/15 [Last Taken 02/06/19] Metformin HCl 500 mg PO QAM tab 11/19/15 [Last Taken 02/06/19] Losartan Potassium 12.5 mg PO QHS 09/12/16 [Last Taken 02/06/19] Amiodarone HCl [Pacerone] 200 mg PO QAM 02/04/17 [Last Taken 02/06/19] Brimonidine Tartrate 1 drop OPTH BID 08/02/18 [Last Taken 02/06/19] Fenofibrate Nanocrystallized [Tricor] 160 mg PO QAM 09/30/18 [Last Taken 02/06/19] Hydrocodone/Acetaminophen [Merrill 5-325 Tablet] 1 each PO ASDIR PRN 09/30/18 [Last Taken Unknown] Levothyroxine Sodium 25 mcg PO QAM 09/30/18 [Last Taken 02/06/19] Metoprolol Succinate [Toprol Xl] 25 mg PO QAM 09/30/18 [Last Taken 02/06/19] Potassium 99 mg PO BID 09/30/18 [Last Taken 02/06/19] Warfarin Sodium [Coumadin] 2.5 mg PO DAILY 09/30/18 [Last Taken 1 Day Ago ~02/06/19] Torsemide 1 tab PO BID 05/11/19 [Last Taken Unknown] Discharge Plan - Discharge Instructions Activity at Discharge: Increase Activity as Tolerated Diet at Discharge: Diabetic Diet Quality Measures - Quality Measures Quality Measures: Atrial Fibrillation & Atrial Flutter: Chronic Anticoagulation Therapy, Advance Directives, Coronary Artery Disease: Antiplatelet Therapy, Documentation of Current Medications in Medical Record, Elder Maltreatment Screen and Follow-Up Plan, Screening for High Blood Pressure and F/U Documented - Current Medications Quality Measure: Measure #130: Documentation of Current Medications Documentation of Current Medications: <Current Medications Documented/Reviewed> [G8427] - Blood Pressure Screening Quality Measure: Screening for High Blood Pressure and Follow-Up Documented Does Patient Have Any of the Following: Active Dx of HTN Blood Pressure Classification: Hypertensive Reading Systolic Measurement: 140 Diastolic Measurement: 92 Screening for High Blood Pressure: Patient Exclusion, Hx of HTN [G9744] - Atrial Fibrillation and Atrial Flutter Quality Measure: Atrial Fibrillation & Atrial Flutter: Chronic Anticoagulation Therapy Does Patient Have Any of the Following: No CHADS2 Risk Stratification: Age 75 or Greater, Hypertension, Diabetes Mellitus, Heart Failure or Impaired LVSF Risk Stratification Summary: One or more high risk factors OR more than one moderate risk factor exists. [N8972] Anticoagulation Therapy: <Oral anticoagulant Prescribed> [Q2815] - Coronary Artery Disease Quality Measure: Measure #6: Coronary Artery Disease (CAD) Antiplatelet Therapy: <ASA or clopidogrel prescribed> [9725F] - Advance Directives Quality Measure: Measure #47: Care Plan Advance Directives Established: No Advance Directives Information Provided To Patient: No Advance Directives on File: No Living Will: No Power of Compliance Reviewer: No Advance Care Planning: <Care Plan/Decision Maker Documented; Discussed & Documented> [0129F] - Elder Abuse Suspicion Index Screening: Elder Abuse Suspicion Index Screening Rely on people for bathing, dressing, shopping, banking, etc: No Prevented from getting food, clothes, medication, etc: No Made to feel shamed or threatened by someone: No Forced to sign papers or use money against will: No Feel afraid, touched in ways not wanted or hurt physically: No Poor eye contact, withdrawn, malnourished, cuts or bruises: No Screening Result: Negative result EASI Reference Information: Shamar BERMUDEZ, Ronda C, Enoch D, La Nena Ding.Development and validation of a tool to assist physicians identification of elder abuse: The Elder Abuse Suspicion Index (EASI ). Journal of Elder Abuse and Neglect, 2008; 20 (3): 276-300. - Elder Maltreatment Screen Quality Measures: Elder Maltreatment Screen and Follow-Up Plan Elder Maltreatment Screen: <Negative, No Follow-Up Plan Required> [G8734]
[2019-05-12] MEDS ORDERED: TORSEMIDE 20 MG PO SCH (11:00)
[2019-05-12] MEDS: TORSEMIDE 20 MG PO SCH (11:44)
[2019-05-12] MEDS ORDERED: WARFARIN 2.5 MG PO SCH (17:00)
[2019-05-12] MEDS ORDERED: SIMVASTATIN 20 MG TABLET PO SCH (22:00)
[2019-05-12] MEDS ORDERED: FAMOTIDINE 20 MG PO SCH (22:00)
[2019-05-12] MEDS ORDERED: TAMSULOSIN HCL 0.4 MG PO SCH (22:00)
[2019-05-12] MEDS ORDERED: SIMVASTATIN 20 MG PO SCH (22:00)
[2019-05-17] MEDS ORDERED: WARFARIN 5 MG TAB PO SCH (10:00)
[2019-05-17] MEDS ORDERED: WARFARIN 5 MG PO SCH (17:00)
== END 2019-05-12 15:00 | disposition short-term general hospital (02) ==
LOC: ER 20:19 → MEDSURG 21:46
PROVIDERS: ADMIT Internal Medicine; ATTEND Internal Medicine
DX: J44.1 Chronic obstructive pulmonary disease with (acute) exacerbation (principal); I47.2 Ventricular tachycardia; I50.9 Heart failure, unspecified; J43.9 Emphysema, unspecified; I25.10 Atherosclerotic heart disease of native coronary artery without angina pectoris; I48.91 Unspecified atrial fibrillation; Z79.01 Long term (current) use of anticoagulants; Z99.81 Dependence on supplemental oxygen; E11.9 Type 2 diabetes mellitus without complications; Z95.1 Presence of aortocoronary bypass graft; Z98.61 Coronary angioplasty status; E03.9 Hypothyroidism, unspecified; Z87.891 Personal history of nicotine dependence; R60.9 Edema, unspecified; M19.90 Unspecified osteoarthritis, unspecified site
CPT/HCPCS: 85610; 80053; 84484 ×2; 85027; 83880; 71045; 94640 ×2; 94761; 93005; G0378 ×2; 93010; 96374; 99220; 99285; J2930